=== PATIENT | female | born 1950 ===

== ENCOUNTER 2017-10-10 07:09 | Emergency (ER) | payer OTHER ==
[2017-10-10 07:27] VITALS: RESP 20
[2017-10-10 08:11] LABS: BASO % 0.2 % (0.0-2.0); EOS # 0.1 K/uL (0.0-0.7); LYMPH # 2.1 K/uL (1.0-4.3); MEAN CELL VOLUME 88.9 fL (81.0-99.0); MEAN CORPUSCULAR HEMOGLOBIN 28.8 pg (27.0-31.0); MEAN CORPUSCULAR HGB CONC 32.4 g/dL (33.0-37.0); MEAN PLATELET VOLUME 8.8 fL (7.2-11.7); MONO # 1.3 K/uL (0.0-0.8); MONO % 9.8 % (0.0-10.0); NEUT # 9.7 K/uL (1.8-7.0); RBC 4.52 Mil/uL (3.80-5.20); RED CELL DISTRIBUTION WIDTH 14.4 % (11.5-14.5); WHITE BLOOD COUNT 13.3 K/uL (4.8-10.8)
--- NOTE | 2017-10-10 08:14 | C.PDOC ---
History Of Present Illness 66 y/o female,w/PMhx of HTN, presents to the ER complaining of chest pain, shortness of breath, and back pain which has been present for the past 1 week. Patient states that she was experiencing symptoms while she was in [place] a few days ago. The symptoms continued after she returned from [place] 3 days ago so she decided to visit the ER. Denies having fever and chills. Time Seen by Provider: 10/10/17 07:17 Chief Complaint (Nursing): Chest Pain History Per: Patient History/Exam Limitations: no limitations Onset/Duration Of Symptoms: Days Current Symptoms Are (Timing): Still Present Severity: Moderate Quality: Aching Recent travel outside of the [place]: No Past Medical History Reviewed: Historical Data, Nursing Documentation, Vital Signs Vital Signs: Last Vital Signs Temp 98.1 F 10/10/17 12:02 Pulse 70 10/10/17 12:02 Resp 20 10/10/17 12:02 BP 165/87 H 10/10/17 12:02 Pulse Ox 95 10/10/17 14:58 - Medical History PMH: HTN Other Surgeries: Hx of surgeries Family History: States: No Known Family Hx - Social History Hx Alcohol Use: No Hx Substance Use: No Review Of Systems Except As Marked, All Systems Reviewed And Found Negative. Constitutional: Negative for: Fever, Chills Cardiovascular: Positive for: Chest Pain Respiratory: Positive for: Shortness of Breath. Negative for: Cough Musculoskeletal: Positive for: Back Pain Physical Exam - Physical Exam Appears: Non-toxic, No Acute Distress Skin: Normal Color, Warm, Dry Head: Atraumatic, Normacephalic Eye(s): bilateral: Normal Inspection Nose: Normal Oral Mucosa: Moist Neck: Supple Chest: Symmetrical Cardiovascular: Rhythm Regular Respiratory: Normal Breath Sounds, No Rales, No Rhonchi, No Wheezing Gastrointestinal/Abdominal: Normal Exam, Soft, No Tenderness, No Guarding, No Rebound Back: Normal Inspection, No Vertebral Tenderness Neurological/Psych: Oriented x3, Normal Speech ED Course And Treatment - Laboratory Results Result Diagrams: 10/10/17 07:54 10/10/17 07:54 Lab Interpretation: No Acute Changes ECG: Interpreted By Tn ECG Rhythm: Sinus Rhythm, Nonspecific Changes ECG Interpretation: No Acute Changes Rate From EC O2 Sat by Pulse Oximetry: 95 (RA) Pulse Ox Interpretation: Normal - Other Rad CXR X-Ray: Viewed By Me, Read By Radiologist Interpretation: Date of service: 10/10/2017. HISTORY: SOB. COMPARISON: No prior. TECHNIQUE: Chest PA and lateral. FINDINGS: LUNGS: No acute infiltrates bilaterally. Linear atelectasis or fibrosis seen at left upper lobe laterally. PLEURA: No significant pleural effusion identified. No pneumothorax apparent. CARDIOVASCULAR: Mild cardiomegaly. No pulmonary vascular congestion evident. OSSEOUS STRUCTURES: No significant abnormalities. VISUALIZED UPPER ABDOMEN: Normal. OTHER FINDINGS: None. IMPRESSION: Mild cardiomegaly. No pulmonary vascular congestion. Linear atelectasis or fibrosis left upper lobe laterally. - CT Scan/US CT-Chest Other Rad Studies (CT/US): Read By Radiologist, Radiology Report Reviewed CT/US Interpretation: Date of service: 10/10/2017. PROCEDURE: CT Chest with contrast (Pulmonary Angiogram). HISTORY: SOB. COMPARISON: None available. TECHNIQUE: Axial computed tomography images were obtained of the chest in the pulmonary arterial phase of enhancement. Coronal and sagittal reformatted images were created and reviewed. Intravenous contrast dose: 100 mL Visipaque 320. Radiation dose: Total exam DLP = 438.14 mGy-cm. This CT exam was performed using one or more of the following dose reduction techniques: Automated exposure control, adjustment of the mA and/or kV according to patient size, and/or use of iterative reconstruction technique. FINDINGS: PULMONARY ARTERIES: Unremarkable. No pulmonary embolism. AORTA: No acute findings. No thoracic aortic aneurysmThe mild aneurysmal dilatation of the ascending thoracic aorta is noted, up to a diameter of 4.2 cm. The main pulmonary artery measures 3.1 cm in diameter, within normal limits. The aortic arch and descending thoracic aorta are normal in caliber. . LUNGS: Minimal linear scar / atelectasis in the lingula and in the right middle lobe. No infiltrate. No pulmonary mass. PLEURAL SPACES: Unremarkable. No effusion or pneumothorax. HEART: Minimal cardiomegaly. Trace pericardial effusion. LYMPH NODES: No lymphadenopathy. BONES, CHEST WALL: Unremarkable. No fracture or destructive lesion. OTHER FINDINGS: Unremarkable. IMPRESSION: No evidence of pulmonary embolism. No acute abnormality. Mild aneurysmal dilatation of the ascending thoracic aorta. Minor findings as above. Progress Note: On re-evaluation lungs clear abdomen soft, in no distress. Discharged in stable condition Reassessment Condition: Improved Medical Decision Making Medical Decision Making: Plan: --Labs --D-Dimer --CXR --UA Disposition Counseled Patient/Family Regarding: Studies Performed, Diagnosis, Need For Followup, Rx Given - Disposition Referrals: Abdirizak Miranda MD [Staff Provider] - Disposition: HOME/ ROUTINE Disposition Time: 12:00 Condition: IMPROVED Additional Instructions: Follow up with your PMD for further evaluation Return to ED if any increase symptoms Prescriptions: Ibuprofen [Motrin Tab] 400 mg PO TID PRN #12 tab PRN Reason: Pain Instructions: Chest Pain, Chest Pain That Is Not Caused by the Heart (DC) Forms: [facility] (Palestinian) Print Language: MONGOLIAN - POA Present On Arrival: None - Clinical Impression Clinical Impression: Chest pain - PA / CMM INSPECTOR / Resident Statement MD/DO has reviewed & agrees with the documentation as recorded. - Scribe Statement The provider has reviewed the documentation as recorded by the Bibi Vaughan Provider Attestation All medical record entries made by the Scribe were at my direction and personally dictated by me. I have reviewed the chart and agree that the record accurately reflects my personal performance of the history, physical exam, medical decision making, and the department course for this patient. I have also personally directed, reviewed, and agree with the discharge instructions and disposition.
[2017-10-10 08:42] LABS: CK-MB 1.43 ng/mL (0.0-3.38)
[2017-10-10 08:47] LABS: ALB/GLOB RATIO 1.1 (1.0-2.1); ALBUMIN 3.9 g/dL (3.5-5.0); ALT/SGPT 17 U/L (9-52); AST/SGOT 19 U/L (14-36); BLOOD UREA NITROGEN 11 mg/dL (7-17); CALCIUM 9.5 mg/dl (8.6-10.4); GFR AFRICAN-AMERICAN > 60; GFR NON-AFRICAN AMERICAN > 60
[2017-10-10] MEDS ORDERED: Sodium Chloride 0.9% 1,000 ML ONE (09:31)
[2017-10-10] MEDS: Sodium Chloride 0.9% 1,000 ML IV ONE (09:36)
[2017-10-10 09:40] LABS: INR 1.2; PROTHROMBIN TIME 13.3 SECONDS (9.7-12.2)
[2017-10-10] MEDS ORDERED: Iodixanol 320 MG/ML 100 ML BOTTLE IV ONE (09:44)
--- NOTE | 2017-10-10 09:52 | RAD ---
Date of service: 10/10/2017 HISTORY: SOB COMPARISON: No prior. TECHNIQUE: Chest PA and lateral FINDINGS: LUNGS: No acute infiltrates bilaterally. Linear atelectasis or fibrosis seen at left upper lobe laterally. PLEURA: No significant pleural effusion identified. No pneumothorax apparent. CARDIOVASCULAR: Mild cardiomegaly. No pulmonary vascular congestion evident. OSSEOUS STRUCTURES: No significant abnormalities. VISUALIZED UPPER ABDOMEN: Normal. OTHER FINDINGS: None. IMPRESSION: Mild cardiomegaly. No pulmonary vascular congestion. Linear atelectasis or fibrosis left upper lobe laterally.
--- NOTE | 2017-10-10 11:08 | CT ---
Date of service: 10/10/2017 PROCEDURE: CT Chest with contrast (Pulmonary Angiogram) HISTORY: SOB COMPARISON: None available. TECHNIQUE: Axial computed tomography images were obtained of the chest in the pulmonary arterial phase of enhancement. Coronal and sagittal reformatted images were created and reviewed. Intravenous contrast dose: 100 mL Visipaque 320 Radiation dose: Total exam DLP = 438.14 mGy-cm. This CT exam was performed using one or more of the following dose reduction techniques: Automated exposure control, adjustment of the mA and/or kV according to patient size, and/or use of iterative reconstruction technique. FINDINGS: PULMONARY ARTERIES: Unremarkable. No pulmonary embolism. AORTA: No acute findings. No thoracic aortic aneurysmThe mild aneurysmal dilatation of the ascending thoracic aorta is noted, up to a diameter of 4.2 cm. The main pulmonary artery measures 3.1 cm in diameter, within normal limits. The aortic arch and descending thoracic aorta are normal in caliber. . LUNGS: Minimal linear scar/ atelectasis in the lingula and in the right middle lobe. No infiltrate. No pulmonary mass. PLEURAL SPACES: Unremarkable. No effusion or pneumothorax. HEART: Minimal cardiomegaly. Trace pericardial effusion. LYMPH NODES: No lymphadenopathy. BONES, CHEST WALL: Unremarkable. No fracture or destructive lesion OTHER FINDINGS: Unremarkable. IMPRESSION: No evidence of pulmonary embolism. No acute abnormality. Mild aneurysmal dilatation of the ascending thoracic aorta. Minor findings as above.
[2017-10-10 12:03] VITALS: BP 165/87; PULSE 70; TEMP 98.1
[2017-10-10 14:57] VITALS: O2SAT 95
== END 2017-10-10 12:05 | disposition home or self-care (01) ==
LOC: C.ER 07:09
DX: R07.9 Chest pain, unspecified (principal)
CPT/HCPCS: 71046; 71275; 80053; 82553; 84484; 85025; 85378; 85610; 85730; 96361; 96374; 99283; J1885; J7030; Q9967

== ENCOUNTER 2017-10-12 11:00 | Inpatient (IN) | payer OTHER, MEDICARE ==
--- NOTE | 2017-10-12 11:45 | RAD ---
Date of service: 10/12/2017 PROCEDURE: CHEST RADIOGRAPH, 1 VIEW HISTORY: SOB COMPARISON: 10/10/2017. FINDINGS: LUNGS: The lungs are well inflated and clear. There is subsegmental atelectasis in the left mid lung. PLEURA: No pneumothorax or pleural fluid seen. CARDIOVASCULAR: There is moderate cardiomegaly. OSSEOUS STRUCTURES: No significant abnormalities. VISUALIZED UPPER ABDOMEN: Normal. OTHER FINDINGS: None. IMPRESSION: No active pulmonary disease.
[2017-10-12 11:48] LABS: BASO # 0.1 K/uL (0.0-0.2); BASO % 0.8 % (0.0-2.0); EOS # 0.2 K/uL (0.0-0.7); EOS % 1.4 % (0.0-4.0); HEMOGLOBIN 12.3 g/dL (11.0-16.0); LYMPH # 2.7 K/uL (1.0-4.3); LYMPH % 20.4 % (20.0-40.0); MEAN CELL VOLUME 88.8 fL (81.0-99.0); MEAN CORPUSCULAR HEMOGLOBIN 29.6 pg (27.0-31.0); MEAN CORPUSCULAR HGB CONC 33.3 g/dL (33.0-37.0); MEAN PLATELET VOLUME 8.8 fL (7.2-11.7); MONO # 0.7 K/uL (0.0-0.8); MONO % 5.6 % (0.0-10.0); NEUT # 9.5 K/uL (1.8-7.0); NEUT % 71.8 % (50.0-75.0); RBC 4.16 Mil/uL (3.80-5.20); RED CELL DISTRIBUTION WIDTH 14.7 % (11.5-14.5); WHITE BLOOD COUNT 13.3 K/uL (4.8-10.8)
[2017-10-12 11:57] LABS: ALBUMIN 3.6 g/dL (3.5-5.0); ALT/SGPT 23 U/L (9-52); AST/SGOT 22 U/L (14-36); BLOOD UREA NITROGEN 14 mg/dL (7-17); CALCIUM 9.2 mg/dl (8.6-10.4); GFR AFRICAN-AMERICAN > 60; GFR NON-AFRICAN AMERICAN > 60
[2017-10-12 12:03] LABS: INR 1.3; PROTHROMBIN TIME 14.3 SECONDS (9.7-12.2)
[2017-10-12 12:04] LABS: B-TYPE NATRIURETIC PEPTIDE 952 pg/mL (0-900)
[2017-10-12] MEDS ORDERED: Metoprolol 1 mg/ml Inj IVP ONE ×2 (12:08→12:19)
--- NOTE | 2017-10-12 12:26 | C.PDOC ---
History Of Present Illness 66 y/o female is sent to ED from Dr. Miranda's office for evaluation of palpitations, and shortness of breath for the past 3 days. Pt was found to be in rapid Afib with fast heart rate at Dr. Miranda's office. Otherwise, she denies fever, chills, cough, or chest pain. Time Seen by Provider: 10/12/17 11:07 Chief Complaint (Nursing): Palpitations History Per: Patient History/Exam Limitations: no limitations Past Medical History Reviewed: Historical Data, Nursing Documentation, Vital Signs Vital Signs: Last Vital Signs Temp 97.6 F 10/12/17 11:06 Pulse 144 H 10/12/17 12:07 Resp 24 10/12/17 11:41 BP 109/78 10/12/17 12:17 Pulse Ox 100 10/12/17 12:26 - Medical History PMH: HTN Family History: States: Unknown Family Hx - Social History Hx Alcohol Use: No Hx Substance Use: No - Immunization History Hx Tetanus Toxoid Vaccination: No Hx Influenza Vaccination: No Hx Pneumococcal Vaccination: No Review Of Systems Except As Marked, All Systems Reviewed And Found Negative. Constitutional: Negative for: Fever, Chills Cardiovascular: Positive for: Palpitations. Negative for: Chest Pain, Light Headedness Respiratory: Positive for: Shortness of Breath. Negative for: Cough Gastrointestinal: Negative for: Nausea, Vomiting Physical Exam - Physical Exam Appears: Non-toxic, No Acute Distress Skin: Normal Color, Warm, Dry Head: Atraumatic, Normacephalic Eye(s): bilateral: Normal Inspection Oral Mucosa: Moist Cardiovascular: Rhythm Irregular (irregular rate and rhythm) Respiratory: Normal Breath Sounds, No Rales, No Rhonchi, No Wheezing Gastrointestinal/Abdominal: Soft, No Tenderness Extremity: Normal ROM, No Pedal Edema, No Deformity Neurological/Psych: Oriented x3, Normal Speech ED Course And Treatment - Laboratory Results Result Diagrams: 10/12/17 11:34 10/12/17 11:34 ECG: Interpreted By Me, Viewed By Me ECG Rhythm: Atrial Fibrillation Interpretation Of ECG: Non-specific ST wave changes. Normal intervals, normal axis. Rate From EC O2 Sat by Pulse Oximetry: 100 Pulse Ox Interpretation: Normal Medical Decision Making Medical Decision Making: Blood work, CXR, EKG ordered and reviewed. Pt was given Cardizem and Lopressor. Spoke with hospitalist, Dr. Schmidt, who agrees upon telemetry admission. Disposition Discussed With .: Willow Schmidt Doctor Will See Patient In The: Hospital Counseled Patient/Family Regarding: Studies Performed, Diagnosis - Disposition Disposition Time: 12:26 Condition: FAIR Forms: [facility] (Syrian) - Clinical Impression Clinical Impression: Atrial fibrillation - Scribe Statement The provider has reviewed the documentation as recorded by the Scribe KP All medical record entries made by the Scribe were at my direction and personally dictated by me. I have reviewed the chart and agree that the record accurately reflects my personal performance of the history, physical exam, medical decision making, and the department course for this patient. I have also personally directed, reviewed, and agree with the discharge instructions and disposition.
--- NOTE | 2017-10-12 13:12 | CP.PCM.HP ---
<Seth Guevara - Last Filed: 10/12/17 19:44> History of Present Illness - History of Present Illness History of Present Illness: Patient was seen and examined at approximately 13:15 in ER Bed 11. Patient is an (Unknown- Full code status) at this time. Patient's emergency contact is her Liam Sommer. He can be reached at [phone]. CC: "I have trouble breathing and my heart is racing" HPI: 66 year old female with past medical history significant for HTN presents with complaints of shortness of breath and palpitations over the course of the past few days. Patient states that she initially presented to the ER here two days earlier for complaints of shortness of breath and chest discomfort. She states that she initially experienced symptoms while away in [place]. She states that she wanted to wait until she was back home to follow up with a doctor. Patient states that they took labs and performed imaging and told her that every thing was okay. She was asked to follow up with her primary medical doctor Dr. Miranda. Patient states that she went to see her primary later on that Sunday whereupon she was further examined. Patient states that she had blood work performed and an EKG performed. She states that there was a problem with the EKG and thus she was told that she would have to go to the emergency room. Patient states that her symptoms resolved that day. She states that she began experiencing symptoms again this morning. She states that she took one baby aspirin earlier today. She admits to palpitations and shortness of breath. Patient states that she feels hort of breath after walking three blocks or climbing up the stairs. She denies chest pain at the moment, nausea, vomiting, diarrhea, dysuria, cough, sick contacts urinary frequency or urgency at this time. PMHX- as stated above PSHx- denies Fam Hx- Mother had heart disease and eye problems Medications- ASA 81 mg PO daily Social- admits to smoking approximately 1 pack over the course of 4 days- has been smoking for approx 30 years (Quit smoking today). Denies alcohol or illicit drug use Allergies- Denies PMD: Dr. Miranda In the ED , EKG performed Atrial fibrillation with RVR. Patient was administered IV diltiazem and Lopressor for which patient responded. Present on Admission - Present on Admission Any Indicators Present on Admission: No Review of Systems - Review of Systems Systems not reviewed;Unavailable: Language Barrier - Constitutional Constitutional: absent: Weight Loss, Weakness - EENT Ears: absent: Ear Discharge, Ear Pain Nose/Mouth/Throat: absent: Nasal Congestion - Cardiovascular Cardiovascular: Dyspnea on Exertion, Palpitations. absent: Chest Pain - Respiratory Respiratory: Dyspnea, Wheezing. absent: Cough - Gastrointestinal Gastrointestinal: absent: Diarrhea, Nausea, Vomiting - Genitourinary Genitourinary: absent: Difficulty Urinating, Dysuria - Integumentary Integumentary: absent: Dry Skin, Skin Pain - Neurological Neurological: absent: Headaches, Weakness - Psychiatric Psychiatric: absent: Anxiety, Irritability - Endocrine Endocrine: Palpitations. absent: Fatigue, Polyuria Past Patient History - Past Social History Smoking Status: Light Smoker < 10 Cigarettes Daily Alcohol: None Drugs: Denies Home Situation {Lives}: With Family - CARDIAC Hx Hypertension: Yes - PSYCHIATRIC Hx Substance Use: No - SURGICAL HISTORY Hx Surgeries: No - ANESTHESIA Hx Anesthesia: No Meds Allergies/Adverse Reactions: Allergies Allergy/AdvReac Type Severity Reaction Status Date / Time No Known Allergies Allergy Verified 10/12/17 11:22 Physical Exam - Constitutional Appears: Non-toxic, No Acute Distress - Head Exam Head Exam: ATRAUMATIC, NORMAL INSPECTION, NORMOCEPHALIC - Eye Exam Eye Exam: EOMI, Normal appearance Pupil Exam: NORMAL ACCOMODATION - ENT Exam ENT Exam: Mucous Membranes Moist - Neck Exam Neck exam: Positive for: Full Rom - Respiratory Exam Respiratory Exam: Wheezes - Expanded Respiratory Exam Expanded Respiratory: wheezes: Right (all lung sampson) - Cardiovascular Exam Cardiovascular Exam: +S1, +S2. absent: Tachycardia, JVD Additional comments: no carotid bruit appreciated - GI/Abdominal Exam GI & Abdominal Exam: Soft. absent: Firm, Guarding, Tenderness - Extremities Exam Extremities exam: Positive for: normal capillary refill, pedal pulses present. Negative for: calf tenderness, pedal edema - Back Exam Back exam: FULL ROM. absent: muscle spasm - Neurological Exam Neurological exam: Alert, Oriented x3 - Psychiatric Exam Psychiatric exam: Normal Affect, Normal Mood - Skin Skin Exam: Dry, Normal Color, Warm Results - Vital Signs Recent Vital Signs: Last Vital Signs Temp 97.6 F 10/12/17 11:06 Pulse 89 10/12/17 12:37 Resp 22 10/12/17 12:37 BP 106/69 10/12/17 12:37 Pulse Ox 100 10/12/17 12:42 - Labs Result Diagrams: 10/12/17 11:34 10/12/17 11:34 Labs: Laboratory Results - last 24 hr 10/12/17 10/12/17 10/12/17 11:34 11:34 11:34 WBC 13.3 H RBC 4.16 Hgb 12.3 Hct 36.9 MCV 88.8 MCH 29.6 MCHC 33.3 RDW 14.7 H Plt Count 324 MPV 8.8 Neut % (Auto) 71.8 Lymph % (Auto) 20.4 Brewster % (Auto) 5.6 Eos % (Auto) 1.4 Baso % (Auto) 0.8 Neut # (Auto) 9.5 H Lymph # (Auto) 2.7 Brewster # (Auto) 0.7 Eos # (Auto) 0.2 Baso # (Auto) 0.1 PT 14.3 H INR 1.3 APTT 31 D Sodium 140 Potassium 3.7 Chloride 103 Carbon Dioxide 24 Anion Gap 17 BUN 14 Creatinine 0.8 Est GFR ( Amer) > 60 Est GFR (Non-Af Amer) > 60 Random Glucose 237 H Calcium 9.2 Total Bilirubin 0.6 AST 22 ALT 23 Alkaline Phosphatase 96 Troponin I 0.0150 NT-Pro-B Natriuret Pep 952 H Total Protein 7.1 Albumin 3.6 Globulin 3.5 Albumin/Globulin Ratio 1.0 TSH 3rd Generation 1.18 Assessment & Plan (1) Atrial fibrillation with RVR Assessment and Plan: Patient received IV Lopressor and Cardizem in the ER Heart rate stabilized Patient on Cardizem 30 mg QID PO EKG confirms atrial fibrillation Initial troponin negative. F/U ELKIN x2 and repeat EKGs Chads Vasc 2 Score of 3 for Age, Female and HTN history. (Questionable CHF). will anticoagulate with therapeutic Lovenox 90 mg SC BID continuous monitoring on telemetry Consult to Dr. Talley (Cardiology)- F/U recommendations Status: Acute (2) Dyspnea Assessment and Plan: Oxygen PRN Wheezing- No known history of asthma. Duonebs Q 4 KEVEN today Follow up. CXR- No signs of active disease- cardiomegaly noted on exam Chest CT performed on 8/1- mildly dilated ascending thoracic aorta of 4.2 cm, arch of aorta and descending aorta within normal dimension parameters. minimal scar atelectasis noted in the lingula and right middle lobe. No infiltrate or pulmonary mass noted. Pro BNP elevated. Suspected CHF. Follow up official Echo reading Height of bed elevated. Monitor ins and outs F/u cardio recommendations Status: Acute (3) Hypertension Assessment and Plan: Controlled without home medications Normotensive at this time. No otherwise known cardiac/vascular history per patient. F/U additional labs including: Hgb a1c, Lipid panel, TSH at this time. Continue to monitor Status: Chronic (4) Prophylactic measure Assessment and Plan: On therapeutic Lovenox 90 mg SC BID GI prophylaxis not currently indicated Status: Acute <Willow Schmidt V - Last Filed: 10/16/17 21:33> Results - Vital Signs Recent Vital Signs: Last Vital Signs Temp 98.7 F 10/16/17 17:53 Pulse 111 H 10/16/17 15:47 Resp 22 10/16/17 15:47 BP 113/79 10/16/17 15:47 Pulse Ox 95 10/16/17 15:47 - Labs Result Diagrams: 10/16/17 08:08 10/16/17 08:08 Labs: Laboratory Results - last 24 hr 10/15/17 10/15/17 10/16/17 16:12 20:25 06:34 WBC RBC Hgb Hct MCV MCH MCHC RDW Plt Count MPV Neut % (Auto) Lymph % (Auto) Brewster % (Auto) Eos % (Auto) Baso % (Auto) Neut # (Auto) Lymph # (Auto) Brewster # (Auto) Eos # (Auto) Baso # (Auto) Sodium Potassium Chloride Carbon Dioxide Anion Gap BUN Creatinine Est GFR ( Amer) Est GFR (Non-Af Amer) POC Glucose (mg/dL) 167 H 126 H 130 H Random Glucose Calcium Total Bilirubin AST ALT Alkaline Phosphatase Total Protein Albumin Globulin Albumin/Globulin Ratio 10/16/17 10/16/17 10/16/17 08:08 08:08 11:04 WBC 9.8 RBC 4.10 Hgb 12.0 Hct 35.9 MCV 87.6 MCH 29.3 MCHC 33.4 RDW 14.3 Plt Count 376 MPV 7.6 Neut % (Auto) 71.5 Lymph % (Auto) 20.7 Brewster % (Auto) 6.5 Eos % (Auto) 0.9 Baso % (Auto) 0.4 Neut # (Auto) 7.0 Lymph # (Auto) 2.0 Brewster # (Auto) 0.6 Eos # (Auto) 0.1 Baso # (Auto) 0.0 Sodium 137 Potassium 3.6 Chloride 98 Carbon Dioxide 26 Anion Gap 16 BUN 16 Creatinine 0.8 Est GFR ( Amer) > 60 Est GFR (Non-Af Amer) > 60 POC Glucose (mg/dL) 146 H Random Glucose 152 H Calcium 9.0 Total Bilirubin 0.6 AST 22 ALT 25 Alkaline Phosphatase 105 Total Protein 7.1 Albumin 3.6 Globulin 3.5 Albumin/Globulin Ratio 1.0 10/16/17 17:23 WBC RBC Hgb Hct MCV MCH MCHC RDW Plt Count MPV Neut % (Auto) Lymph % (Auto) Brewster % (Auto) Eos % (Auto) Baso % (Auto) Neut # (Auto) Lymph # (Auto) Brewster # (Auto) Eos # (Auto) Baso # (Auto) Sodium Potassium Chloride Carbon Dioxide Anion Gap BUN Creatinine Est GFR ( Amer) Est GFR (Non-Af Amer) POC Glucose (mg/dL) 128 H Random Glucose Calcium Total Bilirubin AST ALT Alkaline Phosphatase Total Protein Albumin Globulin Albumin/Globulin Ratio Assessment & Plan (1) Atrial fibrillation with RVR Status: Acute (2) Non-STEMI (non-ST elevated myocardial infarction) Status: Acute (3) Thoracic aortic aneurysm without rupture Status: Chronic (4) Systolic heart failure Status: Acute (5) Hypertension Status: Chronic (6) Elevated d-dimer Status: Acute (7) Leg pain, bilateral Status: Acute (8) Shortness of breath Status: Acute (9) Prophylactic measure Status: Acute Attending/Attestation - Attestation I have personally seen and examined this patient.: Yes I have fully participated in the care of the patient.: Yes I have reviewed all pertinent clinical information: Yes Notes (Text): This is late computer entry for 10/12/17. Patient seen, examined and case discussed with day-time resident. Case discussed with day-time resident. Admitting discussed with day-time resident. Will start therapuetic anticoagulation. Patient start on Cardizem as rate control agent. Cardiology consult. Echocardiogram Assessment and Plan (1) Atrial fibrillation with RVR Assessment & Plan: * Admit to telemetry * Cardiology (Dr. Talley) on consult-->help appreciated * Will see the patient * New onset * CHADSVASC: 3 (age, sex, htn) * HASBLED: 1 (Age) * CT angio r/o PE (10/10/17): no evidence of pulmonary embolism. No acute abnormality. Mild aneurysmal dilatation of the ascending thoracic aorta. * Lovenox 1mg/sub [id number] (Lovenox 90mg subq Q12H) * Check echo * Cardizem 30mg PO QID * Check cardiac enzymes [id number] Status: Acute Status: Acute (2) Thoracic aortic aneurysm without rupture Assessment & Plan: * CT angio r/o PE (10/10/17): no evidence of pulmonary embolism. No acute abnormality. Mild aneurysmal dilatation of the ascending thoracic aorta. * Echocardiogram f/u Status: Chronic (3) Hypertension Assessment & Plan: * Monitor vital signs * Cardizem 30mg PO QID * Heart health, 2gm diet Status: Chronic (4) Elevated d-dimer Assessment & Plan: * Possible due to new onset atrial fibrillation RVR * CT angio r/o PE (10/10/17): no evidence of pulmonary embolism. No acute abnormality. Mild aneurysmal dilatation of the ascending thoracic aorta. Minor findings as above. * On therapuetic Lovenox for atrial fibrillation Status: Acute (5) Shortness of breath Assessment & Plan: * Patient has not formerly seen a imaging services director * she reports she feels short of breathe, reports she thinks she has had asthma , has not had PFTs as outpatient * Patient has had recent travel from [place], 3 hour plane ride * CT angio r/o PE (10/10/17): no evidence of pulmonary embolism. No acute abnormality. Mild aneurysmal dilatation of the ascending thoracic aorta. * elevated probnp concern for possible CHF * Consult Dr. Woodson for pulmonary Status: Acute (6) Prophylactic measure Assessment & Plan: * Lovenox 1mg/subq 12hour Status: Acute
[2017-10-12] MEDS: Albuterol-Ipratrop 3 mg / 0.5 (3 ml) UD INH SCH ×3 (16:25→23:32)
--- NOTE | 2017-10-12 19:46 | CARD ---
APPROVED REPORT Date of service: 10/12/2017 EXAM: Two-dimensional and M-mode echocardiogram with Doppler and color Doppler. Other Information Quality : TDSRhythm : INDICATION Dyspnea Atrial Fibrillation Palpitations 2D DIMENSIONS IVSd1.3 (0.7-1.1cm)LVDd4.8 (3.9-5.9cm) PWd1.0 (0.7-1.1cm)LVDs3.7 (2.5-4.0cm) FS (%) 22.6 %LVEF (%)35.0 (>50%) M-Mode DIMENSIONS Left Atrium (MM)3.64 (2.5-4.0cm)IVSd1.21 (0.7-1.1cm) Aortic Root3.37 (2.2-3.7cm)LVDd4.42 (4.0-5.6cm) Aortic Cusp Exc.1.62 (1.5-2.0cm)PWd1.14 (0.7-1.1cm) FS (%) 14 %LVDs3.78 (2.0-3.8cm) LVEF (%)31 (>50%) Aortic Valve AI P 1/2 Gths684sh Mitral Valve MV E Rwwgjuai06.2cm/sMV A Icwsnjhm734.5cm/sE/A ratio0.4 TDI E/Lateral E'0.0E/Medial E'0.0 LEFT VENTRICLE The left ventricle is normal size. There is mild concentric left ventricular hypertrophy. The left ventricular function is moderate to markedly reduced, with diffuse hypokinesis. The left ventricular ejection fraction is visually about 30%. No regional wall motion abnormalities noted. Indeterminate. No left ventricle thrombus noted on this study. There is no ventricular septal defect visualized. There is no left ventricular aneurysm. There is no mass noted in the left ventricle. RIGHT VENTRICLE The right ventricle is normal size. There is normal right ventricular wall thickness. The right ventricular systolic function is normal. ATRIA The left atrium size is normal. The right atrium size is normal. The interatrial septum is intact with no evidence for an atrial septal defect. AORTIC VALVE The aortic valve is normal in structure and function. Mild aortic regurgitation is present. There is no aortic valvular stenosis. There is no aortic valvular vegetation. MITRAL VALVE The mitral valve is normal in structure and function. There is no evidence of mitral valve prolapse. There is no mitral valve stenosis. There is mild mitral valve regurgitation noted. TRICUSPID VALVE The tricuspid valve is normal in structure and function. There is no tricuspid valve regurgitation noted. There is no tricuspid valve prolapse or vegetation. There is no tricuspid valve stenosis. PULMONIC VALVE The pulmonary valve is normal in structure and function. There is no pulmonic valvular regurgitation. There is no pulmonic valvular stenosis. GREAT VESSELS The aortic root is normal in size. The ascending aorta is moderately dilated at 4.4 cm. The pulmonary artery is normal. The IVC is normal in size and collapses >50% with inspiration. PERICARDIAL EFFUSION The pericardium appears normal. There is no pleural effusion. <Conclusion> The ascending aorta is moderately dilated at 4.4 cm. There is mild concentric left ventricular hypertrophy. The left ventricular function is moderate to markedly reduced, with diffuse hypokinesis. The left ventricular ejection fraction is visually about 30%. Mild aortic regurgitation is present.
[2017-10-12 20:15] LABS: CK-MB 4.13 ng/mL (0.0-3.38)
[2017-10-12 20:17] LABS: TROPONIN I 0.802 ng/mL (0.00-0.120)
[2017-10-12] MEDS: Enoxaparin 100 mg Syringe SC SCH (22:35)
[2017-10-13 01:03] LABS: TROPONIN I 0.471 ng/mL (0.00-0.120)
[2017-10-13 01:04] LABS: CK-MB 2.75 ng/mL (0.0-3.38)
[2017-10-13] MEDS: Albuterol-Ipratrop 3 mg / 0.5 (3 ml) UD INH SCH ×5 (03:17→19:50)
[2017-10-13 08:13] LABS: BASO # 0.1 K/uL (0.0-0.2); EOS # 0.1 K/uL (0.0-0.7); EOS % 1.2 % (0.0-4.0); HEMOGLOBIN 11.7 g/dL (11.0-16.0); LYMPH # 2.2 K/uL (1.0-4.3); LYMPH % 18.7 % (20.0-40.0); MEAN CELL VOLUME 87.4 fL (81.0-99.0); MEAN CORPUSCULAR HEMOGLOBIN 29.1 pg (27.0-31.0); MEAN CORPUSCULAR HGB CONC 33.3 g/dL (33.0-37.0); MEAN PLATELET VOLUME 8.5 fL (7.2-11.7); MONO # 1.1 K/uL (0.0-0.8); MONO % 9.2 % (0.0-10.0); NEUT # 8.2 K/uL (1.8-7.0); NEUT % 69.9 % (50.0-75.0); NRBC % 0.1 % (0.0-2.0); RBC 4.04 Mil/uL (3.80-5.20); RED CELL DISTRIBUTION WIDTH 14.5 % (11.5-14.5); WHITE BLOOD COUNT 11.7 K/uL (4.8-10.8)
[2017-10-13 08:32] LABS: ALB/GLOB RATIO 1.1 (1.0-2.1); ALBUMIN 3.7 g/dL (3.5-5.0); ALT/SGPT 20 U/L (9-52); AST/SGOT 16 U/L (14-36); BLOOD UREA NITROGEN 11 mg/dL (7-17); CALCIUM 9.2 mg/dl (8.6-10.4); GFR AFRICAN-AMERICAN > 60; GFR NON-AFRICAN AMERICAN > 60; HDL CHOLESTEROL 26 mg/dL (30-70)
[2017-10-13 08:38] LABS: LDL CHOLESTEROL 83 mg/dL (0-129)
[2017-10-13] MEDS ORDERED: Potassium Chloride 20 mEq ER Tab PO ONE (09:24)
--- NOTE | 2017-10-13 09:49 | CP.PCM.PN ---
Subjective - Date & Time of Evaluation Date of Evaluation: 10/13/17 Time of Evaluation: 09:45 - Subjective Subjective: Medical Attending Note: Patient denies headache, denies chest pain, denies palpitations, denies cough, denies abdominal pain, denies cough, reports back pain, reports having bowel movement. Patient reports she was on airplane ride on sunday took 3 hours coming back from [place]. Objective - Vital Signs/Intake and Output Vital Signs (last 24 hours): Temp Pulse Resp BP Pulse Ox 98.2 F 100 H 18 165/97 H 100 10/13/17 08:45 10/13/17 08:45 10/13/17 08:45 10/13/17 08:45 10/13/17 08:45 Intake and Output: 10/13/17 10/13/17 06:59 18:59 Intake Total 400 Balance 400 - Medications Medications: Current Medications Acetaminophen (Tylenol 325mg Tab) 650 mg PO Q6 PRN PRN Reason: Pain, moderate (4-7) Last Admin: 10/13/17 01:17 Dose: 650 mg Albuterol/Ipratropium (Duoneb 3 Mg/0.5 Mg (3 Ml) Ud) 3 ml INH RQ4 [facility] Last Admin: 10/13/17 08:06 Dose: 3 ml Aspirin (Ecotrin) 81 mg PO DAILY [facility] Diltiazem HCl (Cardizem) 30 mg PO QID [facility] Last Admin: 10/12/17 22:35 Dose: 30 mg Enoxaparin Sodium (Lovenox) 90 mg SC Q12 [facility] Last Admin: 10/12/17 22:35 Dose: 90 mg Furosemide (Lasix) 40 mg IVP STAT STA Stop: 10/13/17 09:44 - Labs Labs: 10/13/17 08:06 10/13/17 08:06 PT 14.3 SECONDS (9.7-12.2) H 10/12/17 11:34 INR 1.3 10/12/17 11:34 APTT 31 SECONDS (21-34) D 10/12/17 11:34 - Constitutional Appears: Non-toxic, No Acute Distress - Head Exam Head Exam: NORMAL INSPECTION - Eye Exam Eye Exam: EOMI - ENT Exam ENT Exam: Mucous Membranes Moist - Respiratory Exam Respiratory Exam: Clear to Ausculation Bilateral, NORMAL BREATHING PATTERN. absent: Rales, Rhonchi, Wheezes - Cardiovascular Exam Cardiovascular Exam: Irregular Rhythm, +S1, +S2 - GI/Abdominal Exam GI & Abdominal Exam: Soft, Normal Bowel Sounds. absent: Distended, Firm, Guarding, Rigid, Tenderness, Rebound - Extremities Exam Extremities Exam: Tenderness. absent: Pedal Edema - Back Exam Back Exam: absent: CVA tenderness (L), CVA tenderness (R) - Neurological Exam Neurological Exam: Alert, Awake, Oriented x3 - Psychiatric Exam Psychiatric exam: Normal Affect, Normal Mood - Skin Skin Exam: Dry, Intact, Normal Color, Warm Assessment and Plan (1) Atrial fibrillation with RVR Assessment & Plan: Cardiology (Dr. Talley) on consult-->help appreciated * New onset * CHADSVASC: 4 (age, sex, chf, htn) * HASBLED: 1 (Age) * Echocardiogram (10/12/17): Ascending Aorta is moderately dilated at 4.4 cm, mild concentric left ventricular hypertrophy. left ventricular function is moderately to markedly reduced, with diffuse hypokinesis. Left ventricular ejection fraction is visually about 30% Mild aortic regurgitation is present. * CT angio r/o PE (10/10/17): no evidence of pulmonary embolism. No acute abnormality. Mild aneurysmal dilatation of the ascending thoracic aorta. * Lovenox 1mg/sub [id number] (Lovenox 90mg subq Q12H) * Cardizem 30mg PO QID Status: Acute (2) Non-STEMI (non-ST elevated myocardial infarction) Assessment & Plan: * Cardiology (Dr. Talley) on board-->help appreciated * Echocardiogram (10/12/17): Ascending Aorta is moderately dilated at 4.4 cm, mild concentric left ventricular hypertrophy. left ventricular function is moderately to markedly reduced, with diffuse hypokinesis. Left ventricular ejection fraction is visually about 30% Mild aortic regurgitation is present. * CT angio r/o PE (10/10/17): no evidence of pulmonary embolism. No acute abnormality. Mild aneurysmal dilatation of the ascending thoracic aorta. * Patient has positive troponin overnight, which is downtrending * Order for repeat ELKIN this morning * Therapeutic Lovenox 1mg/kg sub12 for atrial fibrillation * Aspirin 81mg PO daily * Start Lisinopril 5mg PO daily * C/w Cardizem 30mg PO QID * Check lipid panel, a1c, TSH/Free T4 * Patient has not had a cardiac cath in the past Status: Acute (3) Thoracic aortic aneurysm without rupture Assessment & Plan: * CT angio r/o PE (10/10/17): no evidence of pulmonary embolism. No acute abnormality. Mild aneurysmal dilatation of the ascending thoracic aorta. * Echocardiogram (10/12/17): Ascending Aorta is moderately dilated at 4.4 cm, mild concentric left ventricular hypertrophy. left ventricular function is moderately to markedly reduced, with diffuse hypokinesis. Left ventricular ejection fraction is visually about 30% Mild aortic regurgitation is present. Status: Chronic (4) Systolic heart failure Assessment & Plan: * Cardiology (Dr. Talley) on case-->help appreciated * New onset * Acute exacerbation * Systolic Dysfunction * elevated proBNP * Echocardiogram (10/12/17): Ascending Aorta is moderately dilated at 4.4 cm, mild concentric left ventricular hypertrophy. left ventricular function is moderately to markedly reduced, with diffuse hypokinesis. Left ventricular ejection fraction is visually about 30%. Mild aortic regurgitation is present * CT angio r/o PE (10/10/17): no evidence of pulmonary embolism. No acute abnormality. Mild aneurysmal dilatation of the ascending thoracic aorta. * Aspirin 81mg PO daily * Cardizem 30mg PO QID * We will need to discuss with cardiology if to switch to beta-sunil given LV dysfunction * Start Lisinopril 5mg PO daily * Fluid restriction (1200ML) * Record intake and outputs Status: Acute (5) Hypertension Assessment & Plan: * Monitor vital signs * Cardizem 30mg PO QID * Start Lisinopril 5mg PO daily * Heart Options Away, 2gm diet Status: Chronic (6) Elevated d-dimer Assessment & Plan: * Order for venous doppler rule out dvt given recent travel from [place] * Possible due to new onset atrial fibrillation RVR * CT angio r/o PE (10/10/17): no evidence of pulmonary embolism. No acute abnormality. Mild aneurysmal dilatation of the ascending thoracic aorta. Minor findings as above. * On therapuetic Lovenox for atrial fibrillation * Echocardiogram (10/12/17): Ascending Aorta is moderately dilated at 4.4 cm, mild concentric left ventricular hypertrophy. left ventricular function is moderately to markedly reduced, with diffuse hypokinesis. Left ventricular ejection fraction is visually about 30% Status: Acute (7) Leg pain, bilateral Assessment & Plan: f/u venous doppler: r/o dvt elevated d-dimer Wells's criteria: 1: moderate risk risk factor: recent plane ride (3 hours), obesity Status: Acute (8) Shortness of breath Assessment & Plan: * Patient has not formerly seen a knot tier * she reports she feels short of breathe, reports she thinks she has had asthma , has not had PFTs as outpatient * Patient has had recent travel from [place], 3 hour plane ride * CT angio r/o PE (10/10/17): no evidence of pulmonary embolism. No acute abnormality. Mild aneurysmal dilatation of the ascending thoracic aorta. * Echocardiogram (10/12/17): Ascending Aorta is moderately dilated at 4.4 cm, mild concentric left ventricular hypertrophy. left ventricular function is moderately to markedly reduced, with diffuse hypokinesis. Left ventricular ejection fraction is visually about 30% Status: Acute (9) Prophylactic measure Assessment & Plan: * Lovenox 1mg/subq 12hour * Fluid restriction * Intake and output * Pepcid 20mg PO BID for GI ppx Status: Acute
[2017-10-13] MEDS: Enoxaparin 100 mg Syringe SC SCH ×2 (10:17→21:21)
--- NOTE | 2017-10-13 14:34 | CP.PCM.CON ---
History of Present Illness - History of Present Illness History of Present Illness: reason for consultation: shortness of breath and long history of smoking 66-year-old female with long history of smoking, hypertension presented to emergency room with shortness of breath, palpitation and chest pain. Patient was seen in the emergency room 2 days ago with similar complaints. patient went to see PMD and was asked to go to the emergency room for abnormal EKG. Patient also complaining of slight cough. Patient was initially started on Cardizem drip for atrial fibrillation with rapid rate and has an elevated troponin with ejection fraction of 30% PMHX- as stated above PSHx- denies Fam Hx- Mother had heart disease and eye problems Medications- ASA 81 mg PO daily Social- admits to smoking approximately 1 pack over the course of 4 days- has been smoking for approx 30 years (Quit smoking today). Denies alcohol or illicit drug use Allergies- Denies Review of Systems - Review of Systems All systems: reviewed and no additional remarkable complaints except (shortness of breath and chest pain) Past Patient History - Past Medical History & Family History Past Medical History?: Yes - Past Social History Smoking Status: Light Smoker < 10 Cigarettes Daily Alcohol: None Drugs: Denies Home Situation {Lives}: With Family - CARDIAC Hx Hypertension: Yes - MUSCULOSKELETAL/RHEUMATOLOGICAL Hx Falls: Yes (more than 30 years ago) - PSYCHIATRIC Hx Substance Use: No - SURGICAL HISTORY Hx Surgeries: No - ANESTHESIA Hx Anesthesia: No Meds Allergies/Adverse Reactions: Allergies Allergy/AdvReac Type Severity Reaction Status Date / Time No Known Allergies Allergy Verified 10/12/17 11:22 - Medications Medications: Current Medications Acetaminophen (Tylenol 325mg Tab) 650 mg PO Q6 PRN PRN Reason: Pain, moderate (4-7) Last Admin: 10/13/17 10:17 Dose: 650 mg Albuterol/Ipratropium (Duoneb 3 Mg/0.5 Mg (3 Ml) Ud) 3 ml INH RQ4 [facility] Last Admin: 10/13/17 13:32 Dose: 3 ml Aspirin (Ecotrin) 81 mg PO DAILY [facility] Last Admin: 10/13/17 10:18 Dose: 81 mg Enoxaparin Sodium (Lovenox) 90 mg SC Q12 [facility] Last Admin: 10/13/17 10:17 Dose: 90 mg Lisinopril (Zestril) 5 mg PO DAILY [facility] Last Admin: 10/13/17 10:18 Dose: 5 mg Metoprolol Tartrate (Lopressor) 50 mg PO BID [facility] Last Admin: 10/13/17 11:15 Dose: 50 mg Physical Exam - Head Exam Head Exam: ATRAUMATIC, NORMOCEPHALIC - ENT Exam ENT Exam: Mucous Membranes Moist - Neck Exam Neck exam: Positive for: Normal Inspection - Respiratory Exam Respiratory Exam: Rhonchi, Wheezes - Cardiovascular Exam Cardiovascular Exam: Irregular Rhythm - GI/Abdominal Exam GI & Abdominal Exam: Normal Bowel Sounds, Soft - Extremities Exam Extremities exam: Positive for: pedal edema - Neurological Exam Neurological exam: Alert, Oriented x3 Results - Vital Signs Recent Vital Signs: Last Vital Signs Temp 98.2 F 10/13/17 08:45 Pulse 97 H 10/13/17 13:17 Resp 18 10/13/17 08:45 BP 137/79 10/13/17 13:17 Pulse Ox 100 10/13/17 08:45 - Labs Result Diagrams: 10/13/17 08:06 10/13/17 08:06 Labs: Laboratory Results - last 24 hr 10/12/17 10/12/17 10/13/17 13:48 19:31 00:15 WBC RBC Hgb Hct MCV MCH MCHC RDW Plt Count MPV Neut % (Auto) Lymph % (Auto) Rice % (Auto) Eos % (Auto) Baso % (Auto) Neut # (Auto) Lymph # (Auto) Rice # (Auto) Eos # (Auto) Baso # (Auto) Sodium Potassium Chloride Carbon Dioxide Anion Gap BUN Creatinine Est GFR ( Amer) Est GFR (Non-Af Amer) Random Glucose Calcium Phosphorus Magnesium Total Bilirubin AST ALT Alkaline Phosphatase Total Creatine Kinase 73 57 CK-MB (Mass) 4.13 H 2.75 Troponin I 0.8020 H* 0.4710 H* Total Protein Albumin Globulin Albumin/Globulin Ratio Triglycerides Cholesterol LDL Cholesterol Direct HDL Cholesterol Free T4 1.31 TSH 3rd Generation 10/13/17 10/13/17 08:06 08:06 WBC 11.7 H RBC 4.04 Hgb 11.7 Hct 35.3 MCV 87.4 MCH 29.1 MCHC 33.3 RDW 14.5 Plt Count 321 MPV 8.5 Neut % (Auto) 69.9 Lymph % (Auto) 18.7 L Rice % (Auto) 9.2 Eos % (Auto) 1.2 Baso % (Auto) 1.0 Neut # (Auto) 8.2 H Lymph # (Auto) 2.2 Rice # (Auto) 1.1 H Eos # (Auto) 0.1 Baso # (Auto) 0.1 Sodium 141 Potassium 3.5 L Chloride 103 Carbon Dioxide 29 Anion Gap 13 BUN 11 Creatinine 0.7 Est GFR ( Amer) > 60 Est GFR (Non-Af Amer) > 60 Random Glucose 147 H Calcium 9.2 Phosphorus 3.9 Magnesium 2.1 Total Bilirubin 0.5 AST 16 ALT 20 Alkaline Phosphatase 98 Total Creatine Kinase 55 CK-MB (Mass) 1.60 Troponin I 0.2580 H* Total Protein 7.0 Albumin 3.7 Globulin 3.3 Albumin/Globulin Ratio 1.1 Triglycerides 120 Cholesterol 145 LDL Cholesterol Direct 83 HDL Cholesterol 26 L Free T4 TSH 3rd Generation 1.06 Assessment & Plan (1) COPD exacerbation Status: Acute Comment: patient with long history of smoking. Presented with shortness of breath, wheezing and slight cough. Continue nebulizer treatment and add budesonide (2) Atrial fibrillation with RVR Status: Acute Comment: continue Lovenox. Cardizem/Lopressor. Possible cardiac catheter tomorrow (3) Non-STEMI (non-ST elevated myocardial infarction) Status: Acute (4) Thoracic aortic aneurysm without rupture Status: Chronic
[2017-10-13] MEDS: Budesonide 0.5 mg/2 ml Inhal Susp UD INH SCH (19:50)
--- NOTE | 2017-10-13 21:52 | CP.PCM.CON ---
History of Present Illness - History of Present Illness History of Present Illness: CC: "I have trouble breathing and my heart is racing" HPI: 66 year old female with past medical history significant for HTN presents with complaints of shortness of breath and palpitations over the course of the past few days. Patient states that she initially presented to the ER here two days earlier for complaints of shortness of breath and chest discomfort. She states that she initially experienced symptoms while away in [place]. She states that she wanted to wait until she was back home to follow up with a doctor. Patient states that they took labs and performed imaging and told her that every thing was okay. She was asked to follow up with her primary medical doctor Dr. Miranda. Patient states that she went to see her primary later on that Sunday whereupon she was further examined. Patient states that she had blood work performed and an EKG performed. She states that there was a problem with the EKG and thus she was told that she would have to go to the emergency room. Patient states that her symptoms resolved that day. She states that she began experiencing symptoms again this morning. She states that she took one baby aspirin earlier today. She admits to palpitations and shortness of breath. Patient states that she feels hort of breath after walking three blocks or climbing up the stairs. She denies chest pain at the moment, nausea, vomiting, diarrhea, dysuria, cough, sick contacts urinary frequency or urgency at this time. PMHX- as stated above PSHx- denies Fam Hx- Mother had heart disease and eye problems Medications- ASA 81 mg PO daily Social- admits to smoking approximately 1 pack over the course of 4 days- has been smoking for approx 30 years (Quit smoking today). Denies alcohol or illicit drug use Allergies- Denies PMD: Dr. Miranda In the ED , EKG performed Atrial fibrillation with RVR. Patient was administered IV diltiazem and Lopressor for which patient responded. Present on Admission - Present on Admission Any Indicators Present on Admission: No Review of Systems - Review of Systems Systems not reviewed;Unavailable: Language Barrier - Constitutional Constitutional: absent: Weight Loss, Weakness - EENT Ears: absent: Ear Discharge, Ear Pain Nose/Mouth/Throat: absent: Nasal Congestion - Cardiovascular Cardiovascular: Dyspnea on Exertion, Palpitations. absent: Chest Pain - Respiratory Respiratory: Dyspnea, Wheezing. absent: Cough - Gastrointestinal Gastrointestinal: absent: Diarrhea, Nausea, Vomiting - Genitourinary Genitourinary: absent: Difficulty Urinating, Dysuria - Integumentary Integumentary: absent: Dry Skin, Skin Pain - Neurological Neurological: absent: Headaches, Weakness - Psychiatric Psychiatric: absent: Anxiety, Irritability - Endocrine Endocrine: Palpitations. absent: Fatigue, Polyuria Physical Exam - Constitutional Appears: Non-toxic, No Acute Distress - Head Exam Head Exam: ATRAUMATIC, NORMAL INSPECTION, NORMOCEPHALIC - Eye Exam Eye Exam: EOMI, Normal appearance Pupil Exam: NORMAL ACCOMODATION - ENT Exam ENT Exam: Mucous Membranes Moist - Neck Exam Neck exam: Positive for: Full Rom - Respiratory Exam Respiratory Exam: Wheezes - Expanded Respiratory Exam Expanded Respiratory: wheezes: Right (all lung sampson) - Cardiovascular Exam Cardiovascular Exam: +S1, +S2. absent: Tachycardia, JVD Additional comments: no carotid bruit appreciated - GI/Abdominal Exam GI & Abdominal Exam: Soft. absent: Firm, Guarding, Tenderness - Extremities Exam Extremities exam: Positive for: normal capillary refill, pedal pulses present. Negative for: calf tenderness, pedal edema - Back Exam Back exam: FULL ROM. absent: muscle spasm - Neurological Exam Neurological exam: Alert, Oriented x3 - Psychiatric Exam Psychiatric exam: Normal Affect, Normal Mood - Skin Skin Exam: Dry, Normal Color, Warm Past Patient History - Past Medical History & Family History Past Medical History?: Yes - Past Social History Smoking Status: Light Smoker < 10 Cigarettes Daily Alcohol: None Drugs: Denies Home Situation {Lives}: With Family - CARDIAC Hx Hypertension: Yes - MUSCULOSKELETAL/RHEUMATOLOGICAL Hx Falls: Yes (more than 30 years ago) - PSYCHIATRIC Hx Substance Use: No - SURGICAL HISTORY Hx Surgeries: No - ANESTHESIA Hx Anesthesia: No Meds Allergies/Adverse Reactions: Allergies Allergy/AdvReac Type Severity Reaction Status Date / Time No Known Allergies Allergy Verified 10/12/17 11:22 - Medications Medications: Current Medications Acetaminophen (Tylenol 325mg Tab) 650 mg PO Q6 PRN PRN Reason: Pain, moderate (4-7) Last Admin: 10/13/17 10:17 Dose: 650 mg Albuterol/Ipratropium (Duoneb 3 Mg/0.5 Mg (3 Ml) Ud) 3 ml INH RQ4 [facility] Last Admin: 10/13/17 19:50 Dose: 3 ml Aspirin (Ecotrin) 81 mg PO DAILY [facility] Last Admin: 10/13/17 10:18 Dose: 81 mg Budesonide (Pulmicort Respules) 0.5 mg INH RQ12 [facility] Last Admin: 10/13/17 19:50 Dose: 0.5 mg Docusate Sodium (Colace) 100 mg PO TID [facility] Last Admin: 10/13/17 17:03 Dose: 100 mg Enoxaparin Sodium (Lovenox) 90 mg SC Q12 [facility] Stop: 10/14/17 12:00 Last Admin: 10/13/17 21:21 Dose: 90 mg Lisinopril (Zestril) 5 mg PO DAILY [facility] Last Admin: 10/13/17 10:18 Dose: 5 mg Metoprolol Tartrate (Lopressor) 50 mg PO BID [facility] Last Admin: 10/13/17 17:03 Dose: 50 mg Results - Vital Signs Recent Vital Signs: Last Vital Signs Temp 98.4 F 10/13/17 15:40 Pulse 86 10/13/17 17:35 Resp 20 10/13/17 15:40 BP 134/76 10/13/17 15:40 Pulse Ox 95 10/13/17 15:40 - Labs Result Diagrams: 10/14/17 08:41 10/14/17 08:41 Labs: Laboratory Results - last 24 hr 10/13/17 10/13/17 10/13/17 00:15 08:06 08:06 WBC 11.7 H RBC 4.04 Hgb 11.7 Hct 35.3 MCV 87.4 MCH 29.1 MCHC 33.3 RDW 14.5 Plt Count 321 MPV 8.5 Neut % (Auto) 69.9 Lymph % (Auto) 18.7 L [place] % (Auto) 9.2 Eos % (Auto) 1.2 Baso % (Auto) 1.0 Neut # (Auto) 8.2 H Lymph # (Auto) 2.2 [place] # (Auto) 1.1 H Eos # (Auto) 0.1 Baso # (Auto) 0.1 Sodium 141 Potassium 3.5 L Chloride 103 Carbon Dioxide 29 Anion Gap 13 BUN 11 Creatinine 0.7 Est GFR ( Amer) > 60 Est GFR (Non-Af Amer) > 60 Random Glucose 147 H Calcium 9.2 Phosphorus 3.9 Magnesium 2.1 Total Bilirubin 0.5 AST 16 ALT 20 Alkaline Phosphatase 98 Total Creatine Kinase 57 55 CK-MB (Mass) 2.75 1.60 Troponin I 0.4710 H* 0.2580 H* Total Protein 7.0 Albumin 3.7 Globulin 3.3 Albumin/Globulin Ratio 1.1 Triglycerides 120 Cholesterol 145 LDL Cholesterol Direct 83 HDL Cholesterol 26 L TSH 3rd Generation 1.06 Assessment & Plan - Assessment and Plan (Free Text) Assessment: (1) Atrial fibrillation with RVR Assessment & Plan: Cardiology (Dr. Talley) on consult-->help appreciated * New onset * CHADSVASC: 4 (age, sex, chf, htn) * HASBLED: 1 (Age) * Echocardiogram (10/12/17): Ascending Aorta is moderately dilated at 4.4 cm, mild concentric left ventricular hypertrophy. left ventricular function is moderately to markedly reduced, with diffuse hypokinesis. Left ventricular ejection fraction is visually about 30% Mild aortic regurgitation is present. * CT angio r/o PE (10/10/17): no evidence of pulmonary embolism. No acute abnormality. Mild aneurysmal dilatation of the ascending thoracic aorta. * Lovenox 1mg/sub [id number] (Lovenox 90mg subq Q12H) * Cardizem 30mg PO QID Status: Acute (2) Non-STEMI (non-ST elevated myocardial infarction) Assessment & Plan: * Echocardiogram (10/12/17): Ascending Aorta is moderately dilated at 4.4 cm, mild concentric left ventricular hypertrophy. left ventricular function is moderately to markedly reduced, with diffuse hypokinesis. Left ventricular ejection fraction is visually about 30% Mild aortic regurgitation is present. * CT angio r/o PE (10/10/17): no evidence of pulmonary embolism. No acute abnormality. Mild aneurysmal dilatation of the ascending thoracic aorta. * Patient has positive troponin overnight, which is downtrending * Order for repeat ELKIN this morning * Therapeutic Lovenox 1mg/kg sub12 for atrial fibrillation * Aspirin 81mg PO daily * Start Lisinopril 5mg PO daily * C/w Cardizem 30mg PO QID * Check lipid panel, a1c, TSH/Free T4 * Patient has not had a cardiac cath in the past Status: Acute (3) Thoracic aortic aneurysm without rupture Assessment & Plan: * CT angio r/o PE (10/10/17): no evidence of pulmonary embolism. No acute abnormality. Mild aneurysmal dilatation of the ascending thoracic aorta. * Echocardiogram (10/12/17): Ascending Aorta is moderately dilated at 4.4 cm, mild concentric left ventricular hypertrophy. left ventricular function is moderately to markedly reduced, with diffuse hypokinesis. Left ventricular ejection fraction is visually about 30% Mild aortic regurgitation is present. Status: Chronic (4) Systolic heart failure Assessment & Plan: * Cardiology (Dr. Talley) on case-->help appreciated * New onset * Acute exacerbation * Systolic Dysfunction * elevated proBNP * Echocardiogram (10/12/17): Ascending Aorta is moderately dilated at 4.4 cm, mild concentric left ventricular hypertrophy. left ventricular function is moderately to markedly reduced, with diffuse hypokinesis. Left ventricular ejection fraction is visually about 30%. Mild aortic regurgitation is present * CT angio r/o PE (10/10/17): no evidence of pulmonary embolism. No acute abnormality. Mild aneurysmal dilatation of the ascending thoracic aorta. * Aspirin 81mg PO daily * Cardizem 30mg PO QID * We will need to discuss with cardiology if to switch to beta-sunil given LV dysfunction * Start Lisinopril 5mg PO daily * Fluid restriction (1200ML) * Record intake and outputs Status: Acute (5) Hypertension Assessment & Plan: * Monitor vital signs * Cardizem 30mg PO QID * Start Lisinopril 5mg PO daily * Heart health, 2gm diet Status: Chronic (6) Elevated d-dimer Assessment & Plan: * Order for venous doppler rule out dvt given recent travel from [place] * Possible due to new onset atrial fibrillation RVR * CT angio r/o PE (10/10/17): no evidence of pulmonary embolism. No acute abnormality. Mild aneurysmal dilatation of the ascending thoracic aorta. Minor findings as above. * On therapuetic Lovenox for atrial fibrillation * Echocardiogram (10/12/17): Ascending Aorta is moderately dilated at 4.4 cm, mild concentric left ventricular hypertrophy. left ventricular function is moderately to markedly reduced, with diffuse hypokinesis. Left ventricular ejection fraction is visually about 30% Status: Acute (7) Leg pain, bilateral Assessment & Plan: f/u venous doppler: r/o dvt elevated d-dimer Wells's criteria: 1: moderate risk risk factor: recent plane ride (3 hours), obesity Status: Acute (8) Shortness of breath Assessment & Plan: * Patient has not formerly seen a grey roll man * she reports she feels short of breathe, reports she thinks she has had asthma , has not had PFTs as outpatient * Patient has had recent travel from [place], 3 hour plane ride * CT angio r/o PE (10/10/17): no evidence of pulmonary embolism. No acute abnormality. Mild aneurysmal dilatation of the ascending thoracic aorta. * Echocardiogram (10/12/17): Ascending Aorta is moderately dilated at 4.4 cm, mild concentric left ventricular hypertrophy. left ventricular function is moderately to markedly reduced, with diffuse hypokinesis. Left ventricular ejection fraction is visually about 30% Status: Acute (9) Prophylactic measure Assessment & Plan: * Lovenox 1mg/subq 12hour * Fluid restriction * Intake and output * Pepcid 20mg PO BID for GI ppx Status: Acute
[2017-10-14] MEDS: Albuterol-Ipratrop 3 mg / 0.5 (3 ml) UD INH SCH ×6 (00:43→19:23)
[2017-10-14] MEDS: Budesonide 0.5 mg/2 ml Inhal Susp UD INH SCH ×2 (07:51→19:23)
[2017-10-14 08:54] LABS: BASO # 0.1 K/uL (0.0-0.2); BASO % 1.1 % (0.0-2.0); EOS # 0.1 K/uL (0.0-0.7); EOS % 1.1 % (0.0-4.0); LYMPH # 2.5 K/uL (1.0-4.3); LYMPH % 23.3 % (20.0-40.0); MEAN CELL VOLUME 87.8 fL (81.0-99.0); MEAN CORPUSCULAR HEMOGLOBIN 30.1 pg (27.0-31.0); MEAN CORPUSCULAR HGB CONC 34.3 g/dL (33.0-37.0); MEAN PLATELET VOLUME 8.5 fL (7.2-11.7); MONO # 0.9 K/uL (0.0-0.8); MONO % 8.4 % (0.0-10.0); NEUT # 7.2 K/uL (1.8-7.0); NEUT % 66.1 % (50.0-75.0); RBC 3.99 Mil/uL (3.80-5.20); RED CELL DISTRIBUTION WIDTH 14.7 % (11.5-14.5); WHITE BLOOD COUNT 10.8 K/uL (4.8-10.8)
[2017-10-14 09:31] LABS: ALBUMIN 3.6 g/dL (3.5-5.0); ALT/SGPT 20 U/L (9-52); AST/SGOT 17 U/L (14-36); BLOOD UREA NITROGEN 11 mg/dL (7-17); GFR AFRICAN-AMERICAN > 60; GFR NON-AFRICAN AMERICAN > 60
[2017-10-14] MEDS ORDERED: Pneumococcal 23-Valent Vaccine IM ONE (10:00)
[2017-10-14] MEDS: Enoxaparin 80 mg Syringe SC SCH ×2 (10:15→22:01)
--- NOTE | 2017-10-14 12:59 | CP.PCM.PN ---
Objective - Vital Signs/Intake and Output Vital Signs (last 24 hours): Temp Pulse Resp BP Pulse Ox 98.4 F 109 H 20 138/83 97 10/14/17 07:40 10/14/17 07:40 10/14/17 07:40 10/14/17 07:40 10/14/17 07:40 - Medications Medications: Current Medications Acetaminophen (Tylenol 325mg Tab) 650 mg PO Q6 PRN PRN Reason: Pain, moderate (4-7) Last Admin: 10/13/17 10:17 Dose: 650 mg Albuterol/Ipratropium (Duoneb 3 Mg/0.5 Mg (3 Ml) Ud) 3 ml INH RQ4 [facility] Last Admin: 10/14/17 07:51 Dose: 3 ml Aspirin (Ecotrin) 81 mg PO DAILY [facility] Last Admin: 10/14/17 10:08 Dose: 81 mg Budesonide (Pulmicort Respules) 0.5 mg INH RQ12 [facility] Last Admin: 10/14/17 07:51 Dose: 0.5 mg Docusate Sodium (Colace) 100 mg PO TID [facility] Last Admin: 10/14/17 10:08 Dose: 100 mg Enoxaparin Sodium (Lovenox) 90 mg SC Q12 [facility] Last Admin: 10/14/17 10:15 Dose: 90 mg Lisinopril (Zestril) 5 mg PO DAILY [facility] Last Admin: 10/14/17 10:08 Dose: 5 mg Metoprolol Tartrate (Lopressor) 50 mg PO BID [facility] Last Admin: 10/14/17 10:08 Dose: 50 mg - Labs Labs: 10/14/17 08:41 10/14/17 08:41 PT 14.3 SECONDS (9.7-12.2) H 10/12/17 11:34 INR 1.3 10/12/17 11:34 APTT 31 SECONDS (21-34) D 10/12/17 11:34
--- NOTE | 2017-10-14 14:20 | CP.PCM.PN ---
Subjective - Date & Time of Evaluation Date of Evaluation: 10/14/17 Time of Evaluation: 13:20 - Subjective Subjective: patient seen And examined Breathing better No chest pain Afebrile Continue nebulizer treatment and steroids Cardiac catheter tomorrow Lasix Objective - Vital Signs/Intake and Output Vital Signs (last 24 hours): Temp Pulse Resp BP Pulse Ox 98.4 F 109 H 20 156/90 H 97 10/14/17 07:40 10/14/17 07:40 10/14/17 07:40 10/14/17 13:22 10/14/17 07:40 - Medications Medications: Current Medications Acetaminophen (Tylenol 325mg Tab) 650 mg PO Q6 PRN PRN Reason: Pain, moderate (4-7) Last Admin: 10/13/17 10:17 Dose: 650 mg Albuterol/Ipratropium (Duoneb 3 Mg/0.5 Mg (3 Ml) Ud) 3 ml INH RQ4 [facility] Last Admin: 10/14/17 11:30 Dose: Not Given Aspirin (Ecotrin) 81 mg PO DAILY [facility] Last Admin: 10/14/17 10:08 Dose: 81 mg Budesonide (Pulmicort Respules) 0.5 mg INH RQ12 [facility] Last Admin: 10/14/17 07:51 Dose: 0.5 mg Docusate Sodium (Colace) 100 mg PO TID [facility] Last Admin: 10/14/17 10:08 Dose: 100 mg Enoxaparin Sodium (Lovenox) 90 mg SC Q12 [facility] Stop: 10/15/17 00:01 Last Admin: 10/14/17 10:15 Dose: 90 mg Lisinopril (Zestril) 5 mg PO DAILY [facility] Last Admin: 10/14/17 10:08 Dose: 5 mg Metoprolol Tartrate (Lopressor) 50 mg PO BID [facility] Last Admin: 10/14/17 10:08 Dose: 50 mg - Labs Labs: 10/14/17 08:41 10/14/17 08:41 PT 14.3 SECONDS (9.7-12.2) H 10/12/17 11:34 INR 1.3 10/12/17 11:34 APTT 31 SECONDS (21-34) D 10/12/17 11:34 Assessment and Plan (1) COPD exacerbation Status: Acute (2) Atrial fibrillation with RVR Status: Acute (3) Non-STEMI (non-ST elevated myocardial infarction) Status: Acute (4) Thoracic aortic aneurysm without rupture Status: Chronic
--- NOTE | 2017-10-14 16:45 | CP.PCM.PN ---
Subjective - Date & Time of Evaluation Date of Evaluation: 10/14/17 Time of Evaluation: 16:45 - Subjective Subjective: Patient seen and evaluated Some dyspnea and chest pain still exist Review of Systems - Review of Systems Systems not reviewed;Unavailable: Language Barrier - Constitutional Constitutional: absent: Weight Loss, Weakness - EENT Ears: absent: Ear Discharge, Ear Pain Nose/Mouth/Throat: absent: Nasal Congestion - Cardiovascular Cardiovascular: Dyspnea on Exertion, Palpitations. absent: Chest Pain - Respiratory Respiratory: Dyspnea, Wheezing. absent: Cough - Gastrointestinal Gastrointestinal: absent: Diarrhea, Nausea, Vomiting - Genitourinary Genitourinary: absent: Difficulty Urinating, Dysuria - Integumentary Integumentary: absent: Dry Skin, Skin Pain - Neurological Neurological: absent: Headaches, Weakness - Psychiatric Psychiatric: absent: Anxiety, Irritability - Endocrine Endocrine: Palpitations. absent: Fatigue, Polyuria Physical Exam - Constitutional Appears: Non-toxic, No Acute Distress - Head Exam Head Exam: ATRAUMATIC, NORMAL INSPECTION, NORMOCEPHALIC - Eye Exam Eye Exam: EOMI, Normal appearance Pupil Exam: NORMAL ACCOMODATION - ENT Exam ENT Exam: Mucous Membranes Moist - Neck Exam Neck exam: Positive for: Full Rom - Respiratory Exam Respiratory Exam: Wheezes - Expanded Respiratory Exam Expanded Respiratory: wheezes: Right (all lung sampson) - Cardiovascular Exam Cardiovascular Exam: +S1, +S2. absent: Tachycardia, JVD Additional comments: no carotid bruit appreciated - GI/Abdominal Exam GI & Abdominal Exam: Soft. absent: Firm, Guarding, Tenderness - Extremities Exam Extremities exam: Positive for: normal capillary refill, pedal pulses present. Negative for: calf tenderness, pedal edema - Back Exam Back exam: FULL ROM. absent: muscle spasm - Neurological Exam Neurological exam: Alert, Oriented x3 - Psychiatric Exam Psychiatric exam: Normal Affect, Normal Mood - Skin Skin Exam: Dry, Normal Color, Warm Objective - Vital Signs/Intake and Output Vital Signs (last 24 hours): Temp Pulse Resp BP Pulse Ox 98.9 F 92 H 20 132/84 98 10/14/17 16:00 10/14/17 16:00 10/14/17 16:00 10/14/17 16:00 10/14/17 16:00 - Medications Medications: Current Medications Acetaminophen (Tylenol 325mg Tab) 650 mg PO Q6 PRN PRN Reason: Pain, moderate (4-7) Last Admin: 10/13/17 10:17 Dose: 650 mg Albuterol/Ipratropium (Duoneb 3 Mg/0.5 Mg (3 Ml) Ud) 3 ml INH RQ4 [facility] Last Admin: 10/14/17 15:28 Dose: 3 ml Aspirin (Ecotrin) 81 mg PO DAILY [facility] Last Admin: 10/14/17 10:08 Dose: 81 mg Budesonide (Pulmicort Respules) 0.5 mg INH RQ12 [facility] Last Admin: 10/14/17 07:51 Dose: 0.5 mg Docusate Sodium (Colace) 100 mg PO TID [facility] Last Admin: 10/14/17 14:51 Dose: 100 mg Enoxaparin Sodium (Lovenox) 90 mg SC Q12 [facility] Stop: 10/15/17 00:01 Last Admin: 10/14/17 10:15 Dose: 90 mg Lisinopril (Zestril) 5 mg PO DAILY [facility] Last Admin: 10/14/17 10:08 Dose: 5 mg Metoprolol Tartrate (Lopressor) 50 mg PO BID [facility] Last Admin: 10/14/17 10:08 Dose: 50 mg - Labs Labs: 10/14/17 08:41 10/14/17 08:41 PT 14.3 SECONDS (9.7-12.2) H 10/12/17 11:34 INR 1.3 10/12/17 11:34 APTT 31 SECONDS (21-34) D 10/12/17 11:34 Assessment and Plan - Assessment and Plan (Free Text) Assessment: (1) Atrial fibrillation with RVR now NSR Assessment & Plan: * New onset * CHADSVASC: 4 (age, sex, chf, htn) * HASBLED: 1 (Age) * Echocardiogram (10/12/17): Ascending Aorta is moderately dilated at 4.4 cm, mild concentric left ventricular hypertrophy. left ventricular function is moderately to markedly reduced, with diffuse hypokinesis. Left ventricular ejection fraction is visually about 30% Mild aortic regurgitation is present. * CT angio r/o PE (10/10/17): no evidence of pulmonary embolism. No acute abnormality. Mild aneurysmal dilatation of the ascending thoracic aorta. * Lovenox 1mg/sub [id number] (Lovenox 90mg subq Q12H) * Cardizem 30mg PO QID Status: Acute (2) Non-STEMI (non-ST elevated myocardial infarction) Assessment & Plan: * Echocardiogram (10/12/17): Ascending Aorta is moderately dilated at 4.4 cm, mild concentric left ventricular hypertrophy. left ventricular function is moderately to markedly reduced, with diffuse hypokinesis. Left ventricular ejection fraction is visually about 30% Mild aortic regurgitation is present. * CT angio r/o PE (10/10/17): no evidence of pulmonary embolism. No acute abnormality. Mild aneurysmal dilatation of the ascending thoracic aorta. * Patient has positive troponin overnight, which is downtrending * Order for repeat ELKIN this morning * Therapeutic Lovenox 1mg/kg sub12 for atrial fibrillation * Aspirin 81mg PO daily * Start Lisinopril 5mg PO daily * C/w Cardizem 30mg PO QID * Check lipid panel, a1c, TSH/Free T4 * Patient has not had a cardiac cath in the past Status: Acute (3) Thoracic aortic aneurysm without rupture Assessment & Plan: * CT angio r/o PE (10/10/17): no evidence of pulmonary embolism. No acute abnormality. Mild aneurysmal dilatation of the ascending thoracic aorta. * Echocardiogram (10/12/17): Ascending Aorta is moderately dilated at 4.4 cm, mild concentric left ventricular hypertrophy. left ventricular function is moderately to markedly reduced, with diffuse hypokinesis. Left ventricular ejection fraction is visually about 30% Mild aortic regurgitation is present. Status: Chronic (4) Systolic heart failure Assessment & Plan: * Cardiology (Dr. Talley) on case-->help appreciated * New onset * Acute exacerbation * Systolic Dysfunction * elevated proBNP * Echocardiogram (10/12/17): Ascending Aorta is moderately dilated at 4.4 cm, mild concentric left ventricular hypertrophy. left ventricular function is moderately to markedly reduced, with diffuse hypokinesis. Left ventricular ejection fraction is visually about 30%. Mild aortic regurgitation is present * CT angio r/o PE (10/10/17): no evidence of pulmonary embolism. No acute abnormality. Mild aneurysmal dilatation of the ascending thoracic aorta. * Aspirin 81mg PO daily * Cardizem 30mg PO QID * We will need to discuss with cardiology if to switch to beta-sunil given LV dysfunction * Start Lisinopril 5mg PO daily * Fluid restriction (1200ML) * Record intake and outputs Status: Acute (5) Hypertension Assessment & Plan: * Monitor vital signs * Cardizem 30mg PO QID * Start Lisinopril 5mg PO daily * Heart health, 2gm diet Status: Chronic (6) Elevated d-dimer Assessment & Plan: * Order for venous doppler rule out dvt given recent travel from [place] * Possible due to new onset atrial fibrillation RVR * CT angio r/o PE (10/10/17): no evidence of pulmonary embolism. No acute abnormality. Mild aneurysmal dilatation of the ascending thoracic aorta. Minor findings as above. * On therapuetic Lovenox for atrial fibrillation * Echocardiogram (10/12/17): Ascending Aorta is moderately dilated at 4.4 cm, mild concentric left ventricular hypertrophy. left ventricular function is moderately to markedly reduced, with diffuse hypokinesis. 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 No acute abnormality. Mild aneurysmal dilatation of the ascending thoracic aorta. * Echocardiogram (10/12/17): Ascending Aorta is moderately dilated at 4.4 cm, mild concentric left ventricular hypertrophy. left ventricular function is moderately to markedly reduced, with diffuse hypokinesis. Left ventricular ejection fraction is visually about 30% Status: Acute (9) Prophylactic measure Assessment & Plan: * Lovenox 1mg/subq 12hour * Fluid restriction * Intake and output * Pepcid 20mg PO BID for GI ppx Status: Acute For cath tomorrow
--- NOTE | 2017-10-14 17:11 | CP.PCM.PN ---
Subjective - Date & Time of Evaluation Date of Evaluation: 10/14/17 Time of Evaluation: 13:00 - Subjective Subjective: Medical Attending Note: patient seen, examined and case discussed with cardiology at bedside. Patient seen at bedside with multiple family members. Patient noted for shortness of breathe and wheezing. Patient is a current smoker and multiple family members identifed as smokers. Patient needed additional Lasix 40mg IV today given shortness of breathe. Patient denies abdominal pain, denies nausea, denies vomitting, reports swelling in lower extremities. Objective - Vital Signs/Intake and Output Vital Signs (last 24 hours): Temp Pulse Resp BP Pulse Ox 98.9 F 95 H 20 132/84 98 10/14/17 16:00 10/14/17 16:00 10/14/17 16:00 10/14/17 16:00 10/14/17 16:00 - Medications Medications: Current Medications Acetaminophen (Tylenol 325mg Tab) 650 mg PO Q6 PRN PRN Reason: Pain, moderate (4-7) Last Admin: 10/13/17 10:17 Dose: 650 mg Albuterol/Ipratropium (Duoneb 3 Mg/0.5 Mg (3 Ml) Ud) 3 ml INH RQ4 [facility] Last Admin: 10/14/17 15:28 Dose: 3 ml Aspirin (Ecotrin) 81 mg PO DAILY [facility] Last Admin: 10/14/17 10:08 Dose: 81 mg Budesonide (Pulmicort Respules) 0.5 mg INH RQ12 [facility] Last Admin: 10/14/17 07:51 Dose: 0.5 mg Docusate Sodium (Colace) 100 mg PO TID [facility] Last Admin: 10/14/17 14:51 Dose: 100 mg Enoxaparin Sodium (Lovenox) 90 mg SC Q12 [facility] Stop: 10/15/17 00:01 Last Admin: 10/14/17 10:15 Dose: 90 mg Lisinopril (Zestril) 5 mg PO DAILY [facility] Last Admin: 10/14/17 10:08 Dose: 5 mg Metoprolol Tartrate (Lopressor) 50 mg PO BID [facility] Last Admin: 10/14/17 10:08 Dose: 50 mg - Labs Labs: 10/14/17 08:41 10/14/17 08:41 PT 14.3 SECONDS (9.7-12.2) H 10/12/17 11:34 INR 1.3 10/12/17 11:34 APTT 31 SECONDS (21-34) D 10/12/17 11:34 - Constitutional Appears: Non-toxic, No Acute Distress - Head Exam Head Exam: NORMAL INSPECTION - Eye Exam Eye Exam: EOMI, PERRL - ENT Exam ENT Exam: Mucous Membranes Moist - Respiratory Exam Respiratory Exam: Wheezes (all 4 lungs), NORMAL BREATHING PATTERN. absent: Respiratory Distress, Stridor - Cardiovascular Exam Cardiovascular Exam: REGULAR RHYTHM, +S1, +S2 - GI/Abdominal Exam GI & Abdominal Exam: Soft, Normal Bowel Sounds. absent: Distended, Firm, Guarding, Rigid, Tenderness, Rebound - Extremities Exam Extremities Exam: absent: Pedal Edema, Tenderness - Neurological Exam Neurological Exam: Alert, Awake, Oriented x3 - Psychiatric Exam Psychiatric exam: Normal Affect, Normal Mood - Skin Skin Exam: Dry, Intact, Normal Color, Warm Assessment and Plan (1) Atrial fibrillation with RVR Status: Acute (2) Non-STEMI (non-ST elevated myocardial infarction) Status: Acute (3) Thoracic aortic aneurysm without rupture Status: Chronic (4) Systolic heart failure Status: Acute (5) Hypertension Status: Chronic (6) Elevated d-dimer Status: Acute (7) Leg pain, bilateral Status: Acute (8) Shortness of breath Status: Acute (9) Prophylactic measure Status: Acute Attending/Attestation - Attestation I have personally seen and examined this patient.: Yes I have fully participated in the care of the patient.: Yes I have reviewed all pertinent clinical information, including history, physical exam and plan: Yes Notes (Text): Assessment and Plan (1) Atrial fibrillation with RVR Assessment & Plan: * Cardiology (Dr. Talley) on consult-->help appreciated * New onset * CHADSVASC: 4 (age, sex, chf, htn) * HASBLED: 1 (Age) * Echocardiogram (10/12/17): Ascending Aorta is moderately dilated at 4.4 cm, mild concentric left ventricular hypertrophy. left ventricular function is moderately to markedly reduced, with diffuse hypokinesis. Left ventricular ejection fraction is visually about 30% Mild aortic regurgitation is present. * CT angio r/o PE (10/10/17): no evidence of pulmonary embolism. No acute abnormality. Mild aneurysmal dilatation of the ascending thoracic aorta. * Lovenox 1mg/sub [id number] (Lovenox 90mg subq Q12H) * To hold at midnight tonight for cath in the AM * Note: patient will need anticoagulation for atrial fibrillation post cath; please f/u with cardiology regarding this post-cath * Aspirin 81mg PO daily * c/w Lopressor 50mg PO BID * Patient is scheduled for cardiac cath tomorrow tentatively 12PM on October 15 given nonstemi and persistent shortness of breathe and chest pain. Patient receive last dose of therapuetic lovenox on 10/14/17 evening and to be NPO tomorrow for cath. NPO except for medications. May have aspirin and plavix prior to cath per cardiology Status: Acute (2) Non-STEMI (non-ST elevated myocardial infarction) Assessment & Plan: * Cardiology (Dr. Talley) on board-->help appreciated * Echocardiogram (10/12/17): Ascending Aorta is moderately dilated at 4.4 cm, mild concentric left ventricular hypertrophy. left ventricular function is moderately to markedly reduced, with diffuse hypokinesis. Left ventricular ejection fraction is visually about 30% Mild aortic regurgitation is present. * CT angio r/o PE (10/10/17): no evidence of pulmonary embolism. No acute abnormality. Mild aneurysmal dilatation of the ascending thoracic aorta. * Patient has positive troponin overnight, which is downtrending. * Therapeutic Lovenox 1mg/kg sub12 for atrial fibrillation and nonstemi * Aspirin 81mg PO daily * Start Lisinopril 5mg PO daily * c/w Lopressor 50mg PO BID * start Crestor 5mg POqHS * Patient has not had a cardiac cath in the past. * Patient is scheduled for cardiac cath tomorrow tentatively 12PM on October 15 given nonstemi and persistent shortness of breathe and chest pain. Patient receive last dose of therapuetic lovenox on 10/14/17 evening and to be NPO tomorrow for cath. NPO except for medications. May have aspirin and plavix prior to cath per cardiology Status: Acute (3) Systolic heart failure, new onset possible ischemic cardiomyopathy? Assessment & Plan: * Cardiology (Dr. Talley) on case-->help appreciated * New onset * Acute exacerbation * Systolic Dysfunction * elevated proBNP * Echocardiogram (10/12/17): Ascending Aorta is moderately dilated at 4.4 cm, mild concentric left ventricular hypertrophy. left ventricular function is moderately to markedly reduced, with diffuse hypokinesis. Left ventricular ejection fraction is visually about 30%. Mild aortic regurgitation is present * CT angio r/o PE (10/10/17): no evidence of pulmonary embolism. No acute abnormality. Mild aneurysmal dilatation of the ascending thoracic aorta. * Aspirin 81mg PO daily * start Plavix 75mg PO daily * c/w Lopressor 50mg PO BID * c/w Lisinopril 5mg PO daily * start Lasix 40mg IV qdaily * start Crestor 5mg POqHS * Fluid restriction (1200ML) * Record intake and outputs * Patient is scheduled for cardiac cath tomorrow tentatively 12PM on October 15 given nonstemi and persistent shortness of breathe and chest pain. Patient receive last dose of therapuetic lovenox on 10/14/17 evening and to be NPO tomorrow for cath. NPO except for medications. May have aspirin and plavix prior to cath per cardiology Status: Acute (4) Thoracic aortic aneurysm without rupture Assessment & Plan: * CT angio r/o PE (10/10/17): no evidence of pulmonary embolism. No acute abnormality. Mild aneurysmal dilatation of the ascending thoracic aorta. * Echocardiogram (10/12/17): Ascending Aorta is moderately dilated at 4.4 cm, mild concentric left ventricular hypertrophy. left ventricular function is moderately to markedly reduced, with diffuse hypokinesis. Left ventricular ejection fraction is visually about 30% Mild aortic regurgitation is present. Status: Chronic (5) Hypertension Assessment & Plan: * Monitor vital signs * c/w Lopressor 50mg PO BID * c/w Lisinopril 5mg PO daily * Heart [employer], 2gm diet Status: Chronic (6) Elevated d-dimer Assessment & Plan: * Order for venous doppler rule out dvt given recent travel from [place] * Pending official report * Possible due to new onset atrial fibrillation RVR, unclear if any CAD hx * CT angio r/o PE (10/10/17): no evidence of pulmonary embolism. No acute abnormality. Mild aneurysmal dilatation of the ascending thoracic aorta. Minor findings as above. * On therapuetic Lovenox for atrial fibrillation * Echocardiogram (10/12/17): Ascending Aorta is moderately dilated at 4.4 cm, mild concentric left ventricular hypertrophy. left ventricular function is moderately to markedly reduced, with diffuse hypokinesis. 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 No acute abnormality. Mild aneurysmal dilatation of the ascending thoracic aorta. * Echocardiogram (10/12/17): Ascending Aorta is moderately dilated at 4.4 cm, mild concentric left ventricular hypertrophy. left ventricular function is moderately to markedly reduced, with diffuse hypokinesis. Left ventricular ejection fraction is visually about 30% * Counselled against smoking * Budesonide 0.5mg INH RQ12H * Duoneb 3ml INH RQ4H Status: Acute (9) Current smoker Assessment & Plan: * Counselled at bedside against side effects of smoking; predominant family history * Will start Nicotine patch (10) Constipation Assessment & Plan: * Monitor for bowel movement * Colace 100mg PO BID (11) Prophylactic measure Assessment & Plan: * Lovenox 1mg/subq 12hour * To stop at midnight tonight * Fluid restriction * Intake and output * Pepcid 20mg PO BID for GI ppx * PMD: kimberly Status: Acute Disposition: Patient is going for cardiac cath tomorrow at noon with Dr. Talley in light of nontemi and shortness of breathe/chest pain symptoms. Post cath, we will need to f/u with cardiology regarding anticoagulation since patient is new- onset atrial fibrillation. We are awaiting official reports of lower extremity dopplers which have not been read yet. monitor for bowel movement.
[2017-10-14] MEDS ORDERED: Dextrose 50% SYRINGE Inj (50 ml) IV PRN (17:38)
[2017-10-14] MEDS ORDERED: Glucagon Recombinant 1 mg Inj IM PRN (17:38)
[2017-10-14] MEDS ORDERED: Dextrose 50% SYRINGE Inj (50 ml) IVP PRN (17:38)
[2017-10-14] MEDS ORDERED: Enoxaparin 100 mg Syringe SC SCH (22:00)
[2017-10-15] MEDS: Albuterol-Ipratrop 3 mg / 0.5 (3 ml) UD INH SCH ×6 (00:19→20:41)
[2017-10-15 06:26] LABS: BASO # 0.1 K/uL (0.0-0.2); BASO % 0.6 % (0.0-2.0); EOS # 0.2 K/uL (0.0-0.7); EOS % 1.8 % (0.0-4.0); HEMOGLOBIN 12.4 g/dL (11.0-16.0); LYMPH # 2.7 K/uL (1.0-4.3); LYMPH % 27.7 % (20.0-40.0); MEAN CELL VOLUME 87.8 fL (81.0-99.0); MEAN CORPUSCULAR HEMOGLOBIN 29.2 pg (27.0-31.0); MEAN CORPUSCULAR HGB CONC 33.2 g/dL (33.0-37.0); MEAN PLATELET VOLUME 7.9 fL (7.2-11.7); MONO % 9.8 % (0.0-10.0); NEUT # 5.9 K/uL (1.8-7.0); NEUT % 60.1 % (50.0-75.0); RBC 4.24 Mil/uL (3.80-5.20); RED CELL DISTRIBUTION WIDTH 14.6 % (11.5-14.5); WHITE BLOOD COUNT 9.7 K/uL (4.8-10.8)
[2017-10-15 06:34] LABS: INR 1.3; PROTHROMBIN TIME 13.8 SECONDS (9.7-12.2)
[2017-10-15] MEDS: Budesonide 0.5 mg/2 ml Inhal Susp UD INH SCH ×2 (07:35→20:41)
[2017-10-15 07:38] LABS: ALBUMIN 3.7 g/dL (3.5-5.0); ALT/SGPT 24 U/L (9-52); AST/SGOT 33 U/L (14-36); BLOOD UREA NITROGEN 16 mg/dL (7-17); CALCIUM 9.6 mg/dl (8.6-10.4); GFR AFRICAN-AMERICAN > 60; GFR NON-AFRICAN AMERICAN > 60
[2017-10-15] MEDS ORDERED: Lidocaine 2% MPF (5 ml) Inj ONE (12:14)
[2017-10-15] MEDS ORDERED: Iohexol 350mg/ml 100 ML ONE (12:14)
[2017-10-15] MEDS ORDERED: Midazolam 2 MG/2 ML VIAL ONE (12:15)
--- NOTE | 2017-10-15 12:15 | CARD ---
APPROVED REPORT Date of service: 10/13/2017 EKG Measurement Heart [id number] MI [id number] <Conclusion> Normal sinus rhythm Nonspecific T wave abnormality Prolonged QT Abnormal ECG
[2017-10-15] MEDS ORDERED: Nitroglycerin 50mg in D5W 0 MG/0 ML BOTTLE IV ONE (12:22)
[2017-10-15] MEDS ORDERED: Verapamil 0 ML ONE (12:22)
--- NOTE | 2017-10-15 13:11 | VASCLAB ---
Date of service: 10/13/2017 PROCEDURE: Lower Extremity Venous Duplex Exam. HISTORY: elevated d-dimer, r/o dvt PRIORS: None. TECHNIQUE: Bilateral common femoral, femoral, popliteal and posterior tibial, peroneal and great saphenous veins were evaluated. Flow was assessed with color Doppler, compressibility, assessment of phasic flow and augmentation response. Report prepared by Ramona Hi Jackie FINDINGS: RIGHT: 1. Common Femoral Vein: 1.1. Compressibility - Fully compressible: Thrombus - None : Flow - Phasic: Augmentation -Normal: Reflux - None. 2. Femoral Vein: 2.1. Compressibility - Fully compressible: Thrombus - None : Flow - Phasic: Augmentation -Normal: Reflux - None. 3. Popliteal Vein: 3.1. Compressibility - Fully compressible: Thrombus - None : Flow - Phasic: Augmentation -Normal: Reflux - None. 4. Posterior Tibial Vein: 4.1. Compressibility - Fully compressible: Thrombus - None: Flow - Phasic: Augmentation -Normal: Reflux - None. 5. Peroneal Vein: 5.1. Compressibility - Fully compressible: Thrombus - None: Flow - Phasic: Augmentation -Normal: Reflux - None. 6. Great Saphenous Vein: 6.1. Compressibility - Fully compressible: Thrombus - None: Flow - Phasic: Augmentation - Normal: Reflux - None. LEFT: 1. Common Femoral Vein: 1.1. Compressibility - Fully compressible: Thrombus - None: Flow - Phasic: Augmentation -Normal: Reflux - None. 2. Femoral Vein: 2.1. Compressibility - Fully compressible: Thrombus - None: Flow - Phasic: Augmentation -Normal: Reflux - None. 3. Popliteal Vein: 3.1. Compressibility - Fully compressible: Thrombus - None : Flow - Phasic: Augmentation -Normal: Reflux - None. 4. Posterior Tibial Vein: 4.1. Compressibility - Fully compressible: Thrombus - None: Flow - Phasic: Augmentation -Normal: Reflux - None. 5. Peroneal Vein: 5.1. Compressibility - Fully compressible: Thrombus - None: Flow - Phasic: Augmentation -Normal: Reflux - None. 6. Great Saphenous Vein: 6.1. Compressibility - Fully compressible: Thrombus - None: Flow - Phasic: Augmentation - Normal: Reflux - None. OTHER FINDINGS: Right: None significant. Left: None significant. IMPRESSION: Right: No evidence of deep or superficial vein thrombosis of the right lower extremity. Normal valve function noted of the right side. Left: No evidence of deep or superficial vein thrombosis of the left lower extremity. Normal valve function noted of the left side.
--- NOTE | 2017-10-15 17:20 | CP.PCM.PN ---
Addendum entered and electronically signed by Alvarado Burns DO 10/15/17 17:50 : Viridiana THOMPSON'ed under prophylaxis Original Note: <Alvarado Burns - Last Filed: 10/15/17 17:44> Subjective - Date & Time of Evaluation Date of Evaluation: 10/15/17 Time of Evaluation: 17:13 - Subjective Subjective: PGY-1 Medicine [place] Note Patient seen and examined at bedside. Patient offers no acute complaints. Patient denies chest pain, sob, n/v, constipation or diarrhea. Patient also denies headaches, palpitations, vision changes, and dizziness. As per nursing no acute events overnight. Objective - Vital Signs/Intake and Output Vital Signs (last 24 hours): Temp Pulse Resp BP Pulse Ox 98.6 F 89 20 159/87 H 98 10/15/17 11:05 10/15/17 11:05 10/15/17 11:05 10/15/17 11:05 10/15/17 11:05 - Medications Medications: Current Medications Acetaminophen (Tylenol 325mg Tab) 650 mg PO Q6 PRN PRN Reason: Pain, moderate (4-7) Last Admin: 10/14/17 18:16 Dose: 650 mg Albuterol/Ipratropium (Duoneb 3 Mg/0.5 Mg (3 Ml) Ud) 3 ml INH RQ4 [facility] Last Admin: 10/15/17 15:38 Dose: 3 ml Aspirin (Ecotrin) 81 mg PO DAILY [facility] Last Admin: 10/15/17 09:29 Dose: 81 mg Budesonide (Pulmicort Respules) 0.5 mg INH RQ12 [facility] Last Admin: 10/15/17 07:35 Dose: 0.5 mg Clopidogrel Bisulfate (Plavix) 75 mg PO DAILY [facility] Last Admin: 10/15/17 09:29 Dose: 75 mg Dextrose (Dextrose 50% Inj) 50 ml IVP ONCE PRN PRN Reason: Hypoglycemia Dextrose (Dextrose 50% Inj) 0 ml IV STAT PRN; Protocol PRN Reason: Hypoglycemia Protocol Dextrose (Glutose 15) 0 gm PO ONCE PRN; Protocol PRN Reason: Hypoglycemia Protocol Docusate Sodium (Colace) 100 mg PO TID [facility] Last Admin: 10/15/17 14:10 Dose: Not Given Enoxaparin Sodium (Lovenox) 90 mg SC Q12 [facility] Furosemide (Lasix) 40 mg IVP DAILY [facility] Last Admin: 10/15/17 09:29 Dose: 40 mg Glucagon (Glucagen Diagnostic Kit) 0 mg IM STAT PRN; Protocol PRN Reason: Hypoglycemia Protocol Dextrose (Dextrose 5% In Water 1000 Ml) 1,000 mls @ 0 mls/hr IV .Q0M PRN; Protocol; Per Protocol PRN Reason: Hypoglycemia Protocol Sodium Chloride (Sodium Chloride 0.45%) 500 mls @ 50 mls/hr IV .Q10H [facility] Stop: 10/16/17 02:30 Lisinopril (Zestril) 5 mg PO DAILY [facility] Last Admin: 10/15/17 09:29 Dose: 5 mg Metoprolol Tartrate (Lopressor) 50 mg PO BID [facility] Last Admin: 10/15/17 09:29 Dose: 50 mg Nicotine (Nicoderm Cq) 1 patch TD DAILY [facility] Last Admin: 10/15/17 09:29 Dose: 1 patch Rosuvastatin Calcium (Crestor) 5 mg PO HS [facility] Last Admin: 10/14/17 21:54 Dose: 5 mg - Labs Labs: 10/15/17 06:10 10/15/17 06:10 PT 13.8 SECONDS (9.7-12.2) H 10/15/17 06:10 INR 1.3 10/15/17 06:10 APTT 44 SECONDS (21-34) H D 10/15/17 06:10 - Constitutional Appears: Non-toxic, No Acute Distress - Head Exam Head Exam: NORMAL INSPECTION, NORMOCEPHALIC - Eye Exam Eye Exam: EOMI, Normal appearance. absent: Nystagmus, Scleral icterus - ENT Exam ENT Exam: Mucous Membranes Moist, Normal Exam - Neck Exam Neck Exam: Full ROM, Normal Inspection - Respiratory Exam Respiratory Exam: Clear to Ausculation Bilateral, NORMAL BREATHING PATTERN. absent: Rales, Rhonchi, Wheezes - Cardiovascular Exam Cardiovascular Exam: REGULAR RHYTHM, +S1, +S2. absent: Murmur - GI/Abdominal Exam GI & Abdominal Exam: Soft, Normal Bowel Sounds. absent: Bruit, Distended, Tenderness - Extremities Exam Extremities Exam: Normal Inspection. absent: Pedal Edema - Back Exam Back Exam: NORMAL INSPECTION. absent: CVA tenderness (L), CVA tenderness (R) - Neurological Exam Neurological Exam: Alert, Awake, Oriented x3 - Psychiatric Exam Psychiatric exam: Normal Affect, Normal Mood - Skin Skin Exam: Normal Color, Warm Assessment and Plan - Assessment and Plan (Free Text) Assessment: Pt is a 66 y.o female with PMH of HTN comes to the hospital for evaluation of shortness of breath and palpitations over the course of the past few days. Tropononis elevated x 3; New onset afib was diagnosed with echo showing a EF of 30%; Dr. Talley did cardiac cath today however it showed blockage of left cirucmflex which needs PCI however he must speak to family first; Cath showed AAA; U/s ordered for tomorrow Plan: Non-STEMI Cardiac cath showed a blockage in the left circumflex and needs PCI- Dr. Talley will speak with family first Troponins elevated (10/12-10/13)x 3 Cardiology (Dr. Talley) on board-->help appreciated Echocardiogram (10/12/17): Ascending Aorta is moderately dilated at 4.4 cm, mild concentric left ventricular hypertrophy. left ventricular function is moderately to markedly reduced, with diffuse hypokinesis. Left ventricular ejection fraction is visually about 30% Mild aortic regurgitation is present. CT angio r/o PE (10/10/17): no evidence of pulmonary embolism. No acute abnormality. Mild aneurysmal dilatation of the ascending thoracic aorta. Aspirin 81mg po daily Lopressor 50mg po bid Lovenox 1mg/kg sub12 Crestor 5mg poqhs Lisinopril 5mg po daily F/U with cardiology regarding restarting of ACs Afib Dr. Talley consulted Aspirin 81mg po daily Lopressor 50mg po bid Thoracic aortic aneurysm without rupture U/S pending CT angio r/o PE (10/10/17): no evidence of pulmonary embolism. No acute abnormality. Mild aneurysmal dilatation of the ascending thoracic aorta. Echocardiogram (10/12/17): Ascending Aorta is moderately dilated at 4.4 cm, mild concentric left ventricular hypertrophy. left ventricular function is moderately to markedly reduced, with diffuse hypokinesis. Left ventricular ejection fraction is visually about 30% Mild aortic regurgitation is present. HFrEF (systolic dysfunction) EF=30% Fluid restriction (<1L) Lasix 40mg IV daily Crestor 5mg poqhs Lisinopril 5mg po dialy Lopressor 50mg po bid Plavix 75 mg po daily Aspirin 81mg po Hypertension BP 159-87 Continue lopressor 50mg po bid; lisinopril 5mg po daily; heart health diet Elevated D-dimer 10/15/17 Doppler Study- No DVT or superficial vein thromobosis CT angio r/o PE (10/10/17): no evidence of pulmonary embolism. No acute abnormality. Mild aneurysmal dilatation of the ascending thoracic aorta. Echocardiogram (10/12/17): Ascending Aorta is moderately dilated at 4.4 cm, mild concentric left ventricular hypertrophy. left ventricular function is moderately to markedly reduced, with diffuse hypokinesis. Left ventricular ejection fraction is visually about 30% Mild aortic regurgitation is present. Shortness of breath Duoneb 3 ml INH q4 joey Budenoside .5 mg INH q12 Diabetes Type 2 hgba1c: 6.8 Accuchecks Q6H Hypoglycemic protocol Prophylaxis Lovenox 1mg/subq 12hour Pepcid 20mg PO BID for GI ppx Fluid restriction <Ken Dominguez - Last Filed: 10/15/17 22:22> Objective - Vital Signs/Intake and Output Vital Signs (last 24 hours): Temp Pulse Resp BP Pulse Ox 98.6 F 89 20 159/87 H 98 10/15/17 11:05 10/15/17 11:05 10/15/17 11:05 10/15/17 11:05 10/15/17 11:05 - Medications Medications: Current Medications Acetaminophen (Tylenol 325mg Tab) 650 mg PO Q6 PRN PRN Reason: Pain, moderate (4-7) Last Admin: 10/15/17 17:54 Dose: 650 mg Albuterol/Ipratropium (Duoneb 3 Mg/0.5 Mg (3 Ml) Ud) 3 ml INH RQ4 [facility] Last Admin: 10/15/17 20:41 Dose: 3 ml Aspirin (Ecotrin) 81 mg PO DAILY [facility] Last Admin: 10/15/17 09:29 Dose: 81 mg Budesonide (Pulmicort Respules) 0.5 mg INH RQ12 [facility] Last Admin: 10/15/17 20:41 Dose: 0.5 mg Clopidogrel Bisulfate (Plavix) 75 mg PO DAILY [facility] Last Admin: 10/15/17 09:29 Dose: 75 mg Dextrose (Dextrose 50% Inj) 50 ml IVP ONCE PRN PRN Reason: Hypoglycemia Dextrose (Dextrose 50% Inj) 0 ml IV STAT PRN; Protocol PRN Reason: Hypoglycemia Protocol Dextrose (Glutose 15) 0 gm PO ONCE PRN; Protocol PRN Reason: Hypoglycemia Protocol Docusate Sodium (Colace) 100 mg PO TID [facility] Last Admin: 10/15/17 17:54 Dose: 100 mg Enoxaparin Sodium (Lovenox) 90 mg SC Q12 [facility] Last Admin: 10/15/17 22:00 Dose: 90 mg Furosemide (Lasix) 40 mg IVP DAILY [facility] Last Admin: 10/15/17 09:29 Dose: 40 mg Glucagon (Glucagen Diagnostic Kit) 0 mg IM STAT PRN; Protocol PRN Reason: Hypoglycemia Protocol Dextrose (Dextrose 5% In Water 1000 Ml) 1,000 mls @ 0 mls/hr IV .Q0M PRN; Protocol; Per Protocol PRN Reason: Hypoglycemia Protocol Sodium Chloride (Sodium Chloride 0.45%) 500 mls @ 50 mls/hr IV .Q10H [facility] Stop: 10/16/17 02:30 Last Admin: 10/15/17 16:00 Dose: 50 mls/hr Insulin Human Regular (Novolin R) 0 unit SC ACHS [facility] PRN Reason: Protocol Lisinopril (Zestril) 5 mg PO DAILY [facility] Last Admin: 10/15/17 09:29 Dose: 5 mg Metoprolol Tartrate (Lopressor) 50 mg PO BID [facility] Last Admin: 10/15/17 17:54 Dose: 50 mg Nicotine (Nicoderm Cq) 1 patch TD DAILY [facility] Last Admin: 10/15/17 09:29 Dose: 1 patch Rosuvastatin Calcium (Crestor) 5 mg PO HS [facility] Last Admin: 10/15/17 21:56 Dose: 5 mg - Labs Labs: 10/15/17 06:10 10/15/17 06:10 PT 13.8 SECONDS (9.7-12.2) H 10/15/17 06:10 INR 1.3 10/15/17 06:10 APTT 44 SECONDS (21-34) H D 10/15/17 06:10 Attending/Attestation - Attestation I have personally seen and examined this patient.: Yes I have fully participated in the care of the patient.: Yes I have reviewed all pertinent clinical information, including history, physical exam and plan: Yes Notes (Text): 10/15/17 22:14 Patient was seen and examined at 5:45 PM 10/15/17 665 B Exam, assessment and plan were gone over with the resident. F/U further recommendations from Cardiology Dr. Talley and arrangement of cardiac catheterization with stent as well as future anticoagulation switch from Lovenox to Eliquis (for the Atrial Fibrillation) as long as there is NO valvular abnormality on Echo. Continue the Metoprolol, Zestril, Crestor, ASA, Plavix for the CAD and HFrEF. NO CCB due to EF at 30%. Patient placed on Moderate RISS ACHS until she can be safely placed on Metformin once she is outside 48 hour window of any contrast administration. CT Angio Chest shows NO PE but did show aneurysmal dilatation of ascending thoracic aorta (4.4 cm as per Echo). F/U U/S Abdominal U/S. Ken Dominguez D.O.
--- NOTE | 2017-10-15 19:00 | CP.PCM.PN ---
Subjective - Date & Time of Evaluation Date of Evaluation: 10/15/17 Time of Evaluation: 18:56 - Subjective Subjective: Patient s/p Cardiac cath 1. L Main: Patent 2. LAD/Diags: Patent 3. L Cx/OM: Distal L Cx 95% stenosis 4. RCA: Mid 50% 5. Dilated Ascending Aorta, AAA Repeat Contrast ECHO to assess LV function and LV clot PCI of L CX on at [facility] abdomen to assess AAA Continue therapeutic Lovenox for paraxysmal A Fib OOB to ambulate IV hydration Objective - Vital Signs/Intake and Output Vital Signs (last 24 hours): Temp Pulse Resp BP Pulse Ox 98.6 F 89 20 159/87 H 98 10/15/17 11:05 10/15/17 11:05 10/15/17 11:05 10/15/17 11:05 10/15/17 11:05 - Medications Medications: Current Medications Acetaminophen (Tylenol 325mg Tab) 650 mg PO Q6 PRN PRN Reason: Pain, moderate (4-7) Last Admin: 10/15/17 17:54 Dose: 650 mg Albuterol/Ipratropium (Duoneb 3 Mg/0.5 Mg (3 Ml) Ud) 3 ml INH RQ4 [facility] Last Admin: 10/15/17 15:38 Dose: 3 ml Aspirin (Ecotrin) 81 mg PO DAILY [facility] Last Admin: 10/15/17 09:29 Dose: 81 mg Budesonide (Pulmicort Respules) 0.5 mg INH RQ12 [facility] Last Admin: 10/15/17 07:35 Dose: 0.5 mg Clopidogrel Bisulfate (Plavix) 75 mg PO DAILY [facility] Last Admin: 10/15/17 09:29 Dose: 75 mg Dextrose (Dextrose 50% Inj) 50 ml IVP ONCE PRN PRN Reason: Hypoglycemia Dextrose (Dextrose 50% Inj) 0 ml IV STAT PRN; Protocol PRN Reason: Hypoglycemia Protocol Dextrose (Glutose 15) 0 gm PO ONCE PRN; Protocol PRN Reason: Hypoglycemia Protocol Docusate Sodium (Colace) 100 mg PO TID [facility] Last Admin: 10/15/17 17:54 Dose: 100 mg Enoxaparin Sodium (Lovenox) 90 mg SC Q12 [facility] Furosemide (Lasix) 40 mg IVP DAILY [facility] Last Admin: 10/15/17 09:29 Dose: 40 mg Glucagon (Glucagen Diagnostic Kit) 0 mg IM STAT PRN; Protocol PRN Reason: Hypoglycemia Protocol Dextrose (Dextrose 5% In Water 1000 Ml) 1,000 mls @ 0 mls/hr IV .Q0M PRN; Protocol; Per Protocol PRN Reason: Hypoglycemia Protocol Sodium Chloride (Sodium Chloride 0.45%) 500 mls @ 50 mls/hr IV .Q10H [facility] Stop: 10/16/17 02:30 Last Admin: 10/15/17 16:00 Dose: 50 mls/hr Lisinopril (Zestril) 5 mg PO DAILY [facility] Last Admin: 10/15/17 09:29 Dose: 5 mg Metoprolol Tartrate (Lopressor) 50 mg PO BID [facility] Last Admin: 10/15/17 17:54 Dose: 50 mg Nicotine (Nicoderm Cq) 1 patch TD DAILY [facility] Last Admin: 10/15/17 09:29 Dose: 1 patch Rosuvastatin Calcium (Crestor) 5 mg PO HS [facility] Last Admin: 10/14/17 21:54 Dose: 5 mg - Labs Labs: 10/15/17 06:10 10/15/17 06:10 PT 13.8 SECONDS (9.7-12.2) H 10/15/17 06:10 INR 1.3 10/15/17 06:10 APTT 44 SECONDS (21-34) H D 10/15/17 06:10
[2017-10-15] MEDS ORDERED: Enoxaparin 80 mg Syringe SC SCH (22:00)
[2017-10-16] MEDS: Albuterol-Ipratrop 3 mg / 0.5 (3 ml) UD INH SCH ×7 (00:33→23:51)
[2017-10-16] MEDS: Budesonide 0.5 mg/2 ml Inhal Susp UD INH SCH ×2 (07:40→20:33)
[2017-10-16 08:15] LABS: BASO % 0.4 % (0.0-2.0); EOS # 0.1 K/uL (0.0-0.7); EOS % 0.9 % (0.0-4.0); LYMPH % 20.7 % (20.0-40.0); MEAN CELL VOLUME 87.6 fL (81.0-99.0); MEAN CORPUSCULAR HEMOGLOBIN 29.3 pg (27.0-31.0); MEAN CORPUSCULAR HGB CONC 33.4 g/dL (33.0-37.0); MEAN PLATELET VOLUME 7.6 fL (7.2-11.7); MONO # 0.6 K/uL (0.0-0.8); MONO % 6.5 % (0.0-10.0); NEUT % 71.5 % (50.0-75.0); RBC 4.1 Mil/uL (3.80-5.20); RED CELL DISTRIBUTION WIDTH 14.3 % (11.5-14.5); WHITE BLOOD COUNT 9.8 K/uL (4.8-10.8)
[2017-10-16] MEDS: (Novolin R) Insulin Human Regular 100 units/ml vial SC SCH ×3 (08:15→17:42)
--- NOTE | 2017-10-16 08:27 | CP.PCM.PN ---
<Guy Simons - Last Filed: 10/16/17 14:40> Subjective - Date & Time of Evaluation Date of Evaluation: 10/16/17 Time of Evaluation: 11:23 - Subjective Subjective: medicine note for Dr Schmidt Pt seen and examined at bedside, laying in bed anxious. Pt reports mild residual chest pain in the left 4-5th rib sternal junction area. She reports fatigue. Pt states her status has improved greatly since presentation in ED. Pt denies any SOB, cough, loss of conscience, dizziness, palpitations, leg pains or pain on inspiration, N/v, F/C. Objective - Vital Signs/Intake and Output Vital Signs (last 24 hours): Temp Pulse Resp BP Pulse Ox 98.4 F 108 H 18 108/70 96 10/16/17 07:45 10/16/17 07:45 10/16/17 07:45 10/16/17 07:45 10/16/17 07:45 Intake and Output: 10/16/17 10/16/17 06:59 18:59 Intake Total 300 Balance 300 - Medications Medications: Current Medications Acetaminophen (Tylenol 325mg Tab) 650 mg PO Q6 PRN PRN Reason: Pain, moderate (4-7) Last Admin: 10/15/17 17:54 Dose: 650 mg Albuterol/Ipratropium (Duoneb 3 Mg/0.5 Mg (3 Ml) Ud) 3 ml INH RQ4 [facility] Last Admin: 10/16/17 03:13 Dose: Not Given Aspirin (Ecotrin) 81 mg PO DAILY [facility] Last Admin: 10/15/17 09:29 Dose: 81 mg Budesonide (Pulmicort Respules) 0.5 mg INH RQ12 [facility] Last Admin: 10/15/17 20:41 Dose: 0.5 mg Clopidogrel Bisulfate (Plavix) 75 mg PO DAILY [facility] Last Admin: 10/15/17 09:29 Dose: 75 mg Dextrose (Dextrose 50% Inj) 50 ml IVP ONCE PRN PRN Reason: Hypoglycemia Dextrose (Dextrose 50% Inj) 0 ml IV STAT PRN; Protocol PRN Reason: Hypoglycemia Protocol Dextrose (Glutose 15) 0 gm PO ONCE PRN; Protocol PRN Reason: Hypoglycemia Protocol Docusate Sodium (Colace) 100 mg PO TID [facility] Last Admin: 10/15/17 17:54 Dose: 100 mg Enoxaparin Sodium (Lovenox) 90 mg SC Q12 [facility] Last Admin: 10/15/17 22:00 Dose: 90 mg Furosemide (Lasix) 40 mg IVP DAILY [facility] Last Admin: 10/15/17 09:29 Dose: 40 mg Glucagon (Glucagen Diagnostic Kit) 0 mg IM STAT PRN; Protocol PRN Reason: Hypoglycemia Protocol Dextrose (Dextrose 5% In Water 1000 Ml) 1,000 mls @ 0 mls/hr IV .Q0M PRN; Protocol; Per Protocol PRN Reason: Hypoglycemia Protocol Insulin Human Regular (Novolin R) 0 unit SC ACHS [facility] PRN Reason: Protocol Lisinopril (Zestril) 5 mg PO DAILY [facility] Last Admin: 10/15/17 09:29 Dose: 5 mg Metoprolol Tartrate (Lopressor) 50 mg PO BID [facility] Last Admin: 10/15/17 17:54 Dose: 50 mg Nicotine (Nicoderm Cq) 1 patch TD DAILY [facility] Last Admin: 10/15/17 09:29 Dose: 1 patch Rosuvastatin Calcium (Crestor) 5 mg PO HS [facility] Last Admin: 10/15/17 21:56 Dose: 5 mg - Labs Labs: 10/16/17 08:08 10/15/17 06:10 PT 13.8 SECONDS (9.7-12.2) H 10/15/17 06:10 INR 1.3 10/15/17 06:10 APTT 44 SECONDS (21-34) H D 10/15/17 06:10 - Constitutional Appears: Well, Non-toxic, In Acute Distress - Head Exam Head Exam: ATRAUMATIC, NORMAL INSPECTION - Eye Exam Eye Exam: EOMI, Normal appearance. absent: Periorbital swelling, Scleral icterus - ENT Exam ENT Exam: Mucous Membranes Moist, Normal Exam - Respiratory Exam Respiratory Exam: Wheezes (bilaterally in all sampson). absent: Accessory Muscle Use, Chest Wall Tenderness - Cardiovascular Exam Cardiovascular Exam: RRR, +S1, +S2. absent: Murmur - GI/Abdominal Exam GI & Abdominal Exam: Soft, Normal Bowel Sounds. absent: Rigid, Tenderness - Extremities Exam Extremities Exam: absent: Calf Tenderness, Joint Swelling, Pedal Edema - Back Exam Back Exam: NORMAL INSPECTION, tenderness Additional comments: right upper thoracic sub scapular tenderness - Neurological Exam Neurological Exam: Alert, Awake, CN II-XII Intact, Oriented x3 Neuro motor strength exam: Left Upper Extremity: 5, Right Upper Extremity: 5, Left Lower Extremity: 5, Right Lower Extremity: 5 - Psychiatric Exam Psychiatric exam: Anxious, Normal Affect - Skin Skin Exam: Intact, Warm Assessment and Plan - Assessment and Plan (Free Text) Assessment: 66yo female with a PMH of HTN and COPD admitted for A-fib and an NSTEMI, s/p cath(10/15) 1 day. Pt is pending PCI Plan: Paroxysmal Atrial fibrillation with RVR now NSR -Improved -Lovenox 90mg q12 -ASA 81mg PO daily -Plavix 75mg PO daily -Lopressor 50mg PO BID -CHADSVASC: 4, HASBLED: 1 -Cardio consulted: Dr Talley -Echo (10/12/17): Ascending Aorta 4.4 cm dilation, LVH. 30% Mild aortic regurgitation is present. -CT angio r/o PE (10/10/17): Neg PE. Mild aneurysmal dilatation of the ascending thoracic aorta. -Cath done 10/15 results: L circumflex block Non-STEMI (non-ST elevated myocardial infarction) -Lovenox 90mg sc q12 -Aspirin 81mg PO daily -Start Lisinopril 5mg PO daily -Lopressor PO 50mg BID -Echo (10/12/17): Ascending Aorta 4.4 cm dilation, LVH. 30% Mild aortic regurgitation is present. -CT angio r/o PE (10/10/17): No PE. Mild aneurysmal dilatation of the ascending thoracic aorta. -trop 10/13 : .24 -trigly: 120, chol: 145, LDL: 83, HDL:26, TSH:1.06 -Cath done 10/15: results- Left Circumflex blockage Aortic Arch Aneurysm -Echo (10/12/17): Ascending Aorta 4.4 cm dilation, LVH. 30% Mild aortic regurgitation is present. -CT angio r/o PE (10/10/17): No PE. Mild aneurysmal dilatation of the ascending thoracic aorta. -Cath 10/15: Left Circumflex Blockage -BP control Systolic Heart Failure -Cardiology (Dr. Talley): help appreciated -BNP 10/12: 952 -Aspirin 81mg PO daily -Plavix 75mg PO daily -Lopressor 50mg PO BID -Lisinopril 5mg PO daily -Crestor 5mg PO HS -Fluid restriction (1200ML) -Record intake and outputs Hypertension -Monitor BP, HR -Lopressor 50mg PO BID -Lisinopril 5mg PO daily Elevated d-dimer -Doppler: neg -Echo (10/12/17): Ascending Aorta 4.4 cm dilation, LVH. 30% Mild aortic regurgitation is present. -CT angio r/o PE (10/10/17): No PE. Mild aneurysmal dilatation of the ascending thoracic aorta. Leg pain, bilateral -f/u venous doppler: r/o dvt -elevated d-dimer -Wells's criteria: 1: moderate risk -risk factor: recent plane ride (3 hours), obesity Shortness of breath -Duonebs RQ4 PRM -Budenoside 0.5mg Rq12 -O2 nasal cannula PPX -Lovenox 1mg/subq 12hour -ASA 81mg Po daily -Plavix 75mg PO daily -Fluid restriction -Intake and output -Pepcid 20mg PO BID for GI ppx disposition: s/p cath yesterday, L circumflex block, pt pending PCI <Willow Schmidt V - Last Filed: 10/16/17 21:15> Objective - Vital Signs/Intake and Output Vital Signs (last 24 hours): Temp Pulse Resp BP Pulse Ox 98.7 F 111 H 22 113/79 95 10/16/17 17:53 10/16/17 15:47 10/16/17 15:47 10/16/17 15:47 10/16/17 15:47 - Medications Medications: Current Medications Acetaminophen (Tylenol 325mg Tab) 650 mg PO Q6 PRN PRN Reason: Pain, moderate (4-7) Last Admin: 10/16/17 16:53 Dose: 650 mg Albuterol/Ipratropium (Duoneb 3 Mg/0.5 Mg (3 Ml) Ud) 3 ml INH RQ4 [facility] Last Admin: 10/16/17 20:33 Dose: 3 ml Aspirin (Ecotrin) 81 mg PO DAILY [facility] Last Admin: 10/16/17 10:21 Dose: 81 mg Budesonide (Pulmicort Respules) 0.5 mg INH RQ12 [facility] Last Admin: 10/16/17 20:33 Dose: 0.5 mg Clopidogrel Bisulfate (Plavix) 75 mg PO DAILY [facility] Last Admin: 10/16/17 10:21 Dose: 75 mg Dextrose (Dextrose 50% Inj) 50 ml IVP ONCE PRN PRN Reason: Hypoglycemia Dextrose (Dextrose 50% Inj) 0 ml IV STAT PRN; Protocol PRN Reason: Hypoglycemia Protocol Dextrose (Glutose 15) 0 gm PO ONCE PRN; Protocol PRN Reason: Hypoglycemia Protocol Docusate Sodium (Colace) 100 mg PO TID [facility] Last Admin: 10/16/17 17:05 Dose: 100 mg Enoxaparin Sodium (Lovenox) 90 mg SC Q12 [facility] Furosemide (Lasix) 40 mg IVP DAILY [facility] Last Admin: 10/16/17 10:20 Dose: 40 mg Glucagon (Glucagen Diagnostic Kit) 0 mg IM STAT PRN; Protocol PRN Reason: Hypoglycemia Protocol Dextrose (Dextrose 5% In Water 1000 Ml) 1,000 mls @ 0 mls/hr IV .Q0M PRN; Protocol; Per Protocol PRN Reason: Hypoglycemia Protocol Sodium Chloride (Sodium Chloride 0.45%) 1,000 mls @ 50 mls/hr IV .Q20H [facility] Last Admin: 10/16/17 17:54 Dose: 50 mls/hr Insulin Human Regular (Novolin R) 0 unit SC ACHS [facility] PRN Reason: Protocol Last Admin: 10/16/17 17:42 Dose: Not Given Lisinopril (Zestril) 5 mg PO DAILY [facility] Last Admin: 10/16/17 10:21 Dose: 5 mg Metoprolol Tartrate (Lopressor) 50 mg PO BID [facility] Last Admin: 10/16/17 17:05 Dose: 50 mg Nicotine (Nicoderm Cq) 1 patch TD DAILY [facility] Last Admin: 10/16/17 10:22 Dose: 1 patch Rosuvastatin Calcium (Crestor) 5 mg PO HS [facility] Last Admin: 10/15/17 21:56 Dose: 5 mg - Labs Labs: 10/16/17 08:08 10/16/17 08:08 PT 13.8 SECONDS (9.7-12.2) H 10/15/17 06:10 INR 1.3 10/15/17 06:10 APTT 44 SECONDS (21-34) H D 10/15/17 06:10 Assessment and Plan (1) Atrial fibrillation with RVR Status: Acute (2) Non-STEMI (non-ST elevated myocardial infarction) Status: Acute (3) Thoracic aortic aneurysm without rupture Status: Chronic (4) Systolic heart failure Status: Acute (5) Hypertension Status: Chronic (6) Elevated d-dimer Status: Acute (7) Leg pain, bilateral Status: Acute (8) Shortness of breath Status: Acute (9) Prophylactic measure Status: Acute Attending/Attestation - Attestation I have personally seen and examined this patient.: Yes I have fully participated in the care of the patient.: Yes I have reviewed all pertinent clinical information, including history, physical exam and plan: Yes Notes (Text): Patient underwent diagnostic catherization yesterday with Dr. Talley. She has completed Aortic US this AM. Patient is scheduled for PCI of left circumflex tomorrow at [facility] at 6:30PM. Patient to receive therapuetic lovenox tonight and to hold AM dose per cardiology. Patient's contrast echo is pending official result. Concern for clot in the LV during cath. I spoke to patient's daughter, Kirsten Medrano ([phone]) explained to her mother's current hospitalization up to this point per request of patient and I have provided the number for further questions from Dr. Talley as requested. Patient does not have any wheezing on exam today. Assessment and Plan (1) Atrial fibrillation with RVR Paroxysmal Atrial Fibrillation Possible LV Clot Assessment & Plan: * Cardiology (Dr. Talley) on consult-->help appreciated * New onset * CHADSVASC: 4 (age, sex, chf, htn) * HASBLED: 1 (Age) * Echocardiogram (10/12/17): Ascending Aorta is moderately dilated at 4.4 cm, mild concentric left ventricular hypertrophy. left ventricular function is moderately to markedly reduced, with diffuse hypokinesis. Left ventricular ejection fraction is visually about 30% Mild aortic regurgitation is present. * CT angio r/o PE (10/10/17): no evidence of pulmonary embolism. No acute abnormality. Mild aneurysmal dilatation of the ascending thoracic aorta. * Lovenox 1mg/sub [id number] (Lovenox 90mg subq Q12H) * To hold AM 10/16/17 dose * Patient going to PCI for left circumflex at [facility] on 10/16/17. * Aspirin 81mg PO daily * c/w Lopressor 50mg PO BID * Patient s/p Cardiac cath (10/15/17) * 1. L Main: Patent * 2. LAD/Diags: Patent * 3. L Cx/OM: Distal L Cx 95% stenosis * 4. RCA: Mid 50% * 5. Dilated Ascending Aorta, AAA * Repeat Contrast ECHO to assess LV function and LV clot--->pending official report * PCI of L CX on at [facility] 10/16/17 * US abdomen to assess AAA * Continue therapeutic Lovenox for paraxysmal A Fib * OOB to ambulate * IV hydration Status: Acute (2) Non-STEMI (non-ST elevated myocardial infarction) Coronary Artery Disease Assessment & Plan: * Cardiology (Dr. Talley) on board-->help appreciated * Echocardiogram (10/12/17): Ascending Aorta is moderately dilated at 4.4 cm, mild concentric left ventricular hypertrophy. left ventricular function is moderately to markedly reduced, with diffuse hypokinesis. Left ventricular ejection fraction is visually about 30% Mild aortic regurgitation is present. * CT angio r/o PE (10/10/17): no evidence of pulmonary embolism. No acute abnormality. Mild aneurysmal dilatation of the ascending thoracic aorta. * Patient has positive troponin overnight, which is downtrending. * Therapeutic Lovenox 1mg/kg sub12 for atrial fibrillation and nonstemi * Aspirin 81mg PO daily * c/w Lisinopril 5mg PO daily * c/w Lopressor 50mg PO BID * c/w Crestor 5mg POqHS * Patient s/p Cardiac cath (10/15/17) * 1. L Main: Patent * 2. LAD/Diags: Patent * 3. L Cx/OM: Distal L Cx 95% stenosis * 4. RCA: Mid 50% * 5. Dilated Ascending Aorta, AAA * Repeat Contrast ECHO to assess LV function and LV clot--->pending official report * PCI of L CX on at [facility] 10/16/17 * US abdomen to assess AAA * Continue therapeutic Lovenox for paraxysmal A Fib * OOB to ambulate * IV hydration Status: Acute (3) Systolic heart failure, new onset possible ischemic cardiomyopathy? Assessment & Plan: * Cardiology (Dr. Talley) on case-->help appreciated * New onset * Acute exacerbation * Systolic Dysfunction * elevated proBNP * Echocardiogram (10/12/17): Ascending Aorta is moderately dilated at 4.4 cm, mild concentric left ventricular hypertrophy. left ventricular function is moderately to markedly reduced, with diffuse hypokinesis. Left ventricular ejection fraction is visually about 30%. Mild aortic regurgitation is present * CT angio r/o PE (10/10/17): no evidence of pulmonary embolism. No acute abnormality. Mild aneurysmal dilatation of the ascending thoracic aorta. * Aspirin 81mg PO daily * start Plavix 75mg PO daily * c/w Lopressor 50mg PO BID * c/w Lisinopril 5mg PO daily * c/w Lasix 40mg IV qdaily * c/w Crestor 5mg POqHS * Fluid restriction (1200ML) * Patient s/p Cardiac cath (10/15/17) * 1. L Main: Patent * 2. LAD/Diags: Patent * 3. L Cx/OM: Distal L Cx 95% stenosis * 4. RCA: Mid 50% * 5. Dilated Ascending Aorta, AAA * Repeat Contrast ECHO to assess LV function and LV clot--->pending official report * PCI of L CX on at [facility] 10/16/17 * US abdomen to assess AAA * Continue therapeutic Lovenox for paraxysmal A Fib * OOB to ambulate * IV hydration Status: Acute (4) Thoracic aortic aneurysm without rupture Assessment & Plan: * CT angio r/o PE (10/10/17): no evidence of pulmonary embolism. No acute abnormality. Mild aneurysmal dilatation of the ascending thoracic aorta. * Echocardiogram (10/12/17): Ascending Aorta is moderately dilated at 4.4 cm, mild concentric left ventricular hypertrophy. left ventricular function is moderately to markedly reduced, with diffuse hypokinesis. Left ventricular ejection fraction is visually about 30% Mild aortic regurgitation is present. * Aorta US (10/16/17): mild descending abdominal aortic aneurysm measuring 4.3 X.6.1Cm as detailed above. Status: Chronic (5) Hypertension Assessment & Plan: * Monitor vital signs * c/w Lopressor 50mg PO BID * c/w Lisinopril 5mg PO daily * Heart health, 2gm diet Status: Chronic (6) Elevated d-dimer Assessment & Plan: * Dopplers negative for DVT * CT angio r/o PE (10/10/17): no evidence of pulmonary embolism. No acute abnormality. Mild aneurysmal dilatation of the ascending thoracic aorta. Minor findings as above. * On therapuetic Lovenox for atrial fibrillation * Echocardiogram (10/12/17): Ascending Aorta is moderately dilated at 4.4 cm, mild concentric left ventricular hypertrophy. left ventricular function is moderately to markedly reduced, with diffuse hypokinesis. Left ventricular ejection fraction is visually about 30% Status: Acute (7) Leg pain, bilateral Assessment & Plan: * Venous doppler: negative for DVT * elevated d-dimer * Wells's criteria: 1: moderate risk * risk factor: recent plane ride (3 hours), obesity Status: Acute (8) Shortness of breath Assessment & Plan: * Dr. Woodson (pulm) on board-->help appreciated * Patient has not formerly seen a support technician * she reports she feels short of breathe, reports she thinks she has had asthma , has not had PFTs as outpatient * Patient has had recent travel from [place], 3 hour plane ride * CT angio r/o PE (10/10/17): no evidence of pulmonary embolism. No acute abnormality. Mild aneurysmal dilatation of the ascending thoracic aorta. * Echocardiogram (10/12/17): Ascending Aorta is moderately dilated at 4.4 cm, mild concentric left ventricular hypertrophy. left ventricular function is moderately to markedly reduced, with diffuse hypokinesis. Left ventricular ejection fraction is visually about 30% * Counselled against smoking * Budesonide 0.5mg INH RQ12H * Duoneb 3ml INH RQ4H Status: Acute (9) Current smoker Assessment & Plan: * Counselled at bedside against side effects of smoking; predominant family history * Will start Nicotine patch (10) Constipation Assessment & Plan: * Monitor for bowel movement * Colace 100mg PO TID (11) Diabetes, new onset Assessment/Plan * hgba1c: 6.8 * Accuchecks Q6H * Hypoglycemic protocol * adaptive physical educator referral * Safe Deposit Attendant referral * Patient is on leida-inhibitor * Patient is on a statin * Patient is on Aspirin as a cardioprotective agent (12) Prophylactic measure Assessment & Plan: * Lovenox 1mg/subq 12hour * To hold AM dose 10/16/17 * Fluid restriction * Intake and output * Kirsten Medrano ([phone]) * 1/2 NS 50cc/hr * PMD: [email or web address] Status: Acute Disposition: Patient is going for cardiac cath tomorrow at 6:30AM for left circumflex coronary artery lesion. Follow. contrast echo for possible LV clot. I have spoken with patient's daughter as requested by the patient and as well as provided number to the immigration officer as well for any further questions. Patient is on gentle iV hydration for cath in AM.
[2017-10-16 08:36] LABS: ALBUMIN 3.6 g/dL (3.5-5.0); ALT/SGPT 25 U/L (9-52); AST/SGOT 22 U/L (14-36); BLOOD UREA NITROGEN 16 mg/dL (7-17); GFR AFRICAN-AMERICAN > 60; GFR NON-AFRICAN AMERICAN > 60
[2017-10-16] MEDS ORDERED: Perflutren Lipid Microsphere 1.5 ML SUS IV ONE (09:50)
--- NOTE | 2017-10-16 10:30 | CP.PCM.PN ---
<Ria Hernández - Last Filed: 10/16/17 17:36> Subjective - Date & Time of Evaluation Date of Evaluation: 10/16/17 Time of Evaluation: 10:27 - Subjective Subjective: Cardiology Progress Note - Dr Talley Patient seen and examined at bedside. Patient is s/p Cardiac cath which showed L CX disease. Patient to be transferred to [facility] tomorrow morning for PCI. Patient is anxious, she feels short of breath with occasional palpitations but improving. Denies any chest pain. Objective - Vital Signs/Intake and Output Vital Signs (last 24 hours): Temp Pulse Resp BP Pulse Ox 98.4 F 108 H 18 108/70 96 10/16/17 07:45 10/16/17 07:45 10/16/17 07:45 10/16/17 10:20 10/16/17 07:45 Intake and Output: 10/16/17 10/16/17 06:59 18:59 Intake Total 300 Balance 300 - Medications Medications: Current Medications Acetaminophen (Tylenol 325mg Tab) 650 mg PO Q6 PRN PRN Reason: Pain, moderate (4-7) Last Admin: 10/15/17 17:54 Dose: 650 mg Albuterol/Ipratropium (Duoneb 3 Mg/0.5 Mg (3 Ml) Ud) 3 ml INH RQ4 [facility] Last Admin: 10/16/17 07:40 Dose: 3 ml Aspirin (Ecotrin) 81 mg PO DAILY [facility] Last Admin: 10/16/17 10:21 Dose: 81 mg Budesonide (Pulmicort Respules) 0.5 mg INH RQ12 [facility] Last Admin: 10/16/17 07:40 Dose: 0.5 mg Clopidogrel Bisulfate (Plavix) 75 mg PO DAILY [facility] Last Admin: 10/16/17 10:21 Dose: 75 mg Dextrose (Dextrose 50% Inj) 50 ml IVP ONCE PRN PRN Reason: Hypoglycemia Dextrose (Dextrose 50% Inj) 0 ml IV STAT PRN; Protocol PRN Reason: Hypoglycemia Protocol Dextrose (Glutose 15) 0 gm PO ONCE PRN; Protocol PRN Reason: Hypoglycemia Protocol Docusate Sodium (Colace) 100 mg PO TID [facility] Last Admin: 10/16/17 10:21 Dose: 100 mg Enoxaparin Sodium (Lovenox) 90 mg SC Q12 [facility] Last Admin: 10/15/17 22:00 Dose: 90 mg Furosemide (Lasix) 40 mg IVP DAILY [facility] Last Admin: 10/16/17 10:20 Dose: 40 mg Glucagon (Glucagen Diagnostic Kit) 0 mg IM STAT PRN; Protocol PRN Reason: Hypoglycemia Protocol Dextrose (Dextrose 5% In Water 1000 Ml) 1,000 mls @ 0 mls/hr IV .Q0M PRN; Protocol; Per Protocol PRN Reason: Hypoglycemia Protocol Insulin Human Regular (Novolin R) 0 unit SC ACHS [facility] PRN Reason: Protocol Last Admin: 10/16/17 08:15 Dose: Not Given Lisinopril (Zestril) 5 mg PO DAILY [facility] Last Admin: 10/16/17 10:21 Dose: 5 mg Metoprolol Tartrate (Lopressor) 50 mg PO BID [facility] Last Admin: 10/16/17 10:21 Dose: 50 mg Nicotine (Nicoderm Cq) 1 patch TD DAILY [facility] Last Admin: 10/16/17 10:22 Dose: 1 patch Rosuvastatin Calcium (Crestor) 5 mg PO HS [facility] Last Admin: 10/15/17 21:56 Dose: 5 mg - Labs Labs: 10/16/17 08:08 10/16/17 08:08 PT 13.8 SECONDS (9.7-12.2) H 10/15/17 06:10 INR 1.3 10/15/17 06:10 APTT 44 SECONDS (21-34) H D 10/15/17 06:10 - Constitutional Appears: Well, No Acute Distress - Head Exam Head Exam: ATRAUMATIC, NORMAL INSPECTION, NORMOCEPHALIC - Eye Exam Eye Exam: EOMI, Normal appearance - ENT Exam ENT Exam: Mucous Membranes Moist - Neck Exam Neck Exam: Full ROM - Respiratory Exam Respiratory Exam: Wheezes. absent: Accessory Muscle Use, Rales, Rhonchi - Cardiovascular Exam Cardiovascular Exam: Irregular Rhythm, +S1, +S2 - GI/Abdominal Exam GI & Abdominal Exam: Soft. absent: Guarding, Rigid, Tenderness - Extremities Exam Extremities Exam: absent: Calf Tenderness Additional comments: +mild edema bilaterally - Neurological Exam Neurological Exam: Alert, Awake, Oriented x3 - Psychiatric Exam Psychiatric exam: Anxious (Tearful), Normal Mood - Skin Skin Exam: Dry, Normal Color, Warm Assessment and Plan - Assessment and Plan (Free Text) Assessment: A/P: Patient is a 66 year old female with past medical history significant for HTN and newly diagnosed DM presented with complaints of shortness of breath and palpitations over the course of the past few days. NSTEMI -S/P Cardiac catherization that showed L Main: Patent, LAD/Diags: Patent, L Cx/ OM: Distal L Cx 95% stenosis, RCA: Mid 50% -Patient to be transferred to [facility] tomorrow for PCI of L Cx -Patient to return to [facility] after the procedure -Will hold AM dose of Lovenox -Continue ASA 81mg PO daily and Plavix 75mg PO daily -Continue Crestor 5mg PO HS -Continue Heart healthy diet -NPO after midnight except medications for procedure Afib with RVR -Monitor on telemetry -Continue Lovenox 90mg Q12 [facility] (will hold AM dose of Lovenox) -Continue Lopressor 50mg PO BID Possible LV Clot -Possible LV clot seen on Echocardiogram -Repeat Contrast ECHO ordered to assess LV function and LV clot Dilated Ascending Aorta, AAA -Aortic US showed mild descending abdominal aortic aneurysm 4.3 x 6.1cm -Chest CT performed on 10/10- mildly dilated ascending thoracic aorta of 4.2 cm, arch of aorta and descending aorta within normal dimension parameters. minimal scar atelectasis noted in the lingula and right middle lobe. No infiltrate or pulmonary mass noted. 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 Hypertension -Lopressor 50mg PO BID -Lisinopril 5mg PO daily Plan discussed with Dr Mayank Hernández DO PGY-2 <Scooby Talley - Last Filed: 10/16/17 21:31> Objective - Vital Signs/Intake and Output Vital Signs (last 24 hours): Temp Pulse Resp BP Pulse Ox 98.7 F 111 H 22 113/79 95 10/16/17 17:53 10/16/17 15:47 10/16/17 15:47 10/16/17 15:47 10/16/17 15:47 - Medications Medications: Current Medications Acetaminophen (Tylenol 325mg Tab) 650 mg PO Q6 PRN PRN Reason: Pain, moderate (4-7) Last Admin: 10/16/17 16:53 Dose: 650 mg Albuterol/Ipratropium (Duoneb 3 Mg/0.5 Mg (3 Ml) Ud) 3 ml INH RQ4 [facility] Last Admin: 10/16/17 20:33 Dose: 3 ml Aspirin (Ecotrin) 81 mg PO DAILY [facility] Last Admin: 10/16/17 10:21 Dose: 81 mg Budesonide (Pulmicort Respules) 0.5 mg INH RQ12 [facility] Last Admin: 10/16/17 20:33 Dose: 0.5 mg Clopidogrel Bisulfate (Plavix) 75 mg PO DAILY [facility] Last Admin: 10/16/17 10:21 Dose: 75 mg Dextrose (Dextrose 50% Inj) 50 ml IVP ONCE PRN PRN Reason: Hypoglycemia Dextrose (Dextrose 50% Inj) 0 ml IV STAT PRN; Protocol PRN Reason: Hypoglycemia Protocol Dextrose (Glutose 15) 0 gm PO ONCE PRN; Protocol PRN Reason: Hypoglycemia Protocol Docusate Sodium (Colace) 100 mg PO TID [facility] Last Admin: 10/16/17 17:05 Dose: 100 mg Enoxaparin Sodium (Lovenox) 90 mg SC Q12 [facility] Furosemide (Lasix) 40 mg IVP DAILY [facility] Last Admin: 10/16/17 10:20 Dose: 40 mg Glucagon (Glucagen Diagnostic Kit) 0 mg IM STAT PRN; Protocol PRN Reason: Hypoglycemia Protocol Dextrose (Dextrose 5% In Water 1000 Ml) 1,000 mls @ 0 mls/hr IV .Q0M PRN; Protocol; Per Protocol PRN Reason: Hypoglycemia Protocol Sodium Chloride (Sodium Chloride 0.45%) 1,000 mls @ 50 mls/hr IV .Q20H [facility] Last Admin: 10/16/17 17:54 Dose: 50 mls/hr Insulin Human Regular (Novolin R) 0 unit SC ACHS [facility] PRN Reason: Protocol Last Admin: 10/16/17 17:42 Dose: Not Given Lisinopril (Zestril) 5 mg PO DAILY [facility] Last Admin: 10/16/17 10:21 Dose: 5 mg Metoprolol Tartrate (Lopressor) 50 mg PO BID [facility] Last Admin: 10/16/17 17:05 Dose: 50 mg Nicotine (Nicoderm Cq) 1 patch TD DAILY [facility] Last Admin: 10/16/17 10:22 Dose: 1 patch Rosuvastatin Calcium (Crestor) 5 mg PO HS [facility] Last Admin: 10/15/17 21:56 Dose: 5 mg - Labs Labs: 10/16/17 08:08 10/16/17 08:08 PT 13.8 SECONDS (9.7-12.2) H 10/15/17 06:10 INR 1.3 10/15/17 06:10 APTT 44 SECONDS (21-34) H D 10/15/17 06:10 Assessment and Plan - Assessment and Plan (Free Text) Assessment: Patient seen and evaluated pesronally by me. Plan of care d/w the medical staff credentialing coordinator and as documented
--- NOTE | 2017-10-16 13:41 | US ---
Date of service: 10/15/2017 PROCEDURE: HISTORY: To evaluate size of AAA COMPARISON: None TECHNIQUE: Normal standard protocol FINDINGS: Proximal aorta - 2.3 cm AP dimension on sagittal image Mid aorta - 4.3 cm 8 P length estimated 6.2 cm per sagittal image plane available ; transverse width 6.1 cm. Doppler flow shows turbulence and patency The distal abdominal aortic segment is estimated to be 1.6 cm The bifurcation areas not clearly labeled are possible top-normal common iliac arterial caliber here is question. At the 1.5 cm each side. IMPRESSION: Mid descending abdominal aortic aneurysm measuring 4.3 x 6.1 cm as detailed above. Comments: Patient in cardiac catheterization at 2:30 p.m..
--- NOTE | 2017-10-16 15:34 | CP.PCM.PN ---
Subjective - Date & Time of Evaluation Date of Evaluation: 10/16/17 Time of Evaluation: 11:00 - Subjective Subjective: patient seen and examined Status post cardiac cath Cough and shortness of breath improving No chest pain Afebrile Objective - Vital Signs/Intake and Output Vital Signs (last 24 hours): Temp Pulse Resp BP Pulse Ox 98.4 F 108 H 18 108/70 96 10/16/17 07:45 10/16/17 09:00 10/16/17 07:45 10/16/17 10:20 10/16/17 07:45 Intake and Output: 10/16/17 10/16/17 06:59 18:59 Intake Total 300 Balance 300 - Medications Medications: Current Medications Acetaminophen (Tylenol 325mg Tab) 650 mg PO Q6 PRN PRN Reason: Pain, moderate (4-7) Last Admin: 10/15/17 17:54 Dose: 650 mg Albuterol/Ipratropium (Duoneb 3 Mg/0.5 Mg (3 Ml) Ud) 3 ml INH RQ4 [facility] Last Admin: 10/16/17 13:45 Dose: 3 ml Aspirin (Ecotrin) 81 mg PO DAILY [facility] Last Admin: 10/16/17 10:21 Dose: 81 mg Budesonide (Pulmicort Respules) 0.5 mg INH RQ12 [facility] Last Admin: 10/16/17 07:40 Dose: 0.5 mg Clopidogrel Bisulfate (Plavix) 75 mg PO DAILY [facility] Last Admin: 10/16/17 10:21 Dose: 75 mg Dextrose (Dextrose 50% Inj) 50 ml IVP ONCE PRN PRN Reason: Hypoglycemia Dextrose (Dextrose 50% Inj) 0 ml IV STAT PRN; Protocol PRN Reason: Hypoglycemia Protocol Dextrose (Glutose 15) 0 gm PO ONCE PRN; Protocol PRN Reason: Hypoglycemia Protocol Docusate Sodium (Colace) 100 mg PO TID [facility] Last Admin: 10/16/17 14:48 Dose: 100 mg Enoxaparin Sodium (Lovenox) 90 mg SC Q12 [facility] Furosemide (Lasix) 40 mg IVP DAILY [facility] Last Admin: 10/16/17 10:20 Dose: 40 mg Glucagon (Glucagen Diagnostic Kit) 0 mg IM STAT PRN; Protocol PRN Reason: Hypoglycemia Protocol Dextrose (Dextrose 5% In Water 1000 Ml) 1,000 mls @ 0 mls/hr IV .Q0M PRN; Protocol; Per Protocol PRN Reason: Hypoglycemia Protocol Insulin Human Regular (Novolin R) 0 unit SC ACHS [facility] PRN Reason: Protocol Last Admin: 10/16/17 12:08 Dose: Not Given Lisinopril (Zestril) 5 mg PO DAILY [facility] Last Admin: 10/16/17 10:21 Dose: 5 mg Metoprolol Tartrate (Lopressor) 50 mg PO BID [facility] Last Admin: 10/16/17 10:21 Dose: 50 mg Nicotine (Nicoderm Cq) 1 patch TD DAILY [facility] Last Admin: 10/16/17 10:22 Dose: 1 patch Rosuvastatin Calcium (Crestor) 5 mg PO HS [facility] Last Admin: 10/15/17 21:56 Dose: 5 mg - Labs Labs: 10/16/17 08:08 10/16/17 08:08 PT 13.8 SECONDS (9.7-12.2) H 10/15/17 06:10 INR 1.3 10/15/17 06:10 APTT 44 SECONDS (21-34) H D 10/15/17 06:10 - Head Exam Head Exam: ATRAUMATIC, NORMOCEPHALIC - Eye Exam Eye Exam: PERRL - ENT Exam ENT Exam: Mucous Membranes Moist - Neck Exam Neck Exam: Normal Inspection - Respiratory Exam Respiratory Exam: Rhonchi - Cardiovascular Exam Cardiovascular Exam: REGULAR RHYTHM Assessment and Plan (1) COPD exacerbation Assessment & Plan: continue present treatment Status: Acute (2) Atrial fibrillation with RVR Status: Acute (3) Non-STEMI (non-ST elevated myocardial infarction) Assessment & Plan: status post cardiac cath 1. L Main: Patent 2. LAD/Diags: Patent 3. L Cx/OM: Distal L Cx 95% stenosis 4. RCA: Mid 50% 5. Dilated Ascending Aorta, AAA Repeat Contrast ECHO to assess LV function and LV clot PCI of L CX on at [facility] abdomen to assess AAA Status: Acute (4) Thoracic aortic aneurysm without rupture Status: Chronic
[2017-10-16] MEDS: Sodium Chloride 0.45% 1,000 ML IV SCH (17:54)
[2017-10-16] MEDS: Enoxaparin 100 mg Syringe SC SCH (21:50)
--- NOTE | 2017-10-17 00:46 | CARD ---
APPROVED REPORT Date of service: 10/16/2017 EXAM: LIMITED Two-dimensional and M-mode echocardiogram with Doppler, color Doppler with contrast. Other Information Quality : GoodRhythm : INDICATION Atrial Fibrillation Thrombus Echo Enhancing Agent Indication: Rule out thrombus Agent/Amount Used: Definity Mitral Valve E/A ratio0.0 TDI E/Lateral E'0.0E/Medial E'0.0 Tricuspid Valve TR Peak [id number]/sTR Peak Gr.21mmHg <Conclusion> Definity contrast study revealed heterogenous density in the apex which could represent trabeculations, thrombus or artifacts. Suggest BOBBY. Linear low density in the mid-lateral region consistent with papillary muscle. Normal LV systolic function. RVSP is 31mmHg.
[2017-10-17] MEDS: Albuterol-Ipratrop 3 mg / 0.5 (3 ml) UD INH SCH ×5 (03:17→21:02)
--- NOTE | 2017-10-17 07:00 | CP.PCM.PN ---
<Guy Simons - Last Filed: 10/17/17 16:34> Subjective - Date & Time of Evaluation Date of Evaluation: 10/17/17 Time of Evaluation: 07:00 - Subjective Subjective: Medicine note for hospitalist service Pt was trasferred to [facility] for PCI this morning at 6am. Pt was unable to be examined due to transfer. Objective - Vital Signs/Intake and Output Vital Signs (last 24 hours): Temp Pulse Resp BP Pulse Ox 98.1 F 84 20 135/74 95 10/16/17 23:20 10/16/17 23:20 10/16/17 23:20 10/16/17 23:20 10/16/17 23:20 Intake and Output: 10/17/17 10/17/17 06:59 18:59 Intake Total 1100 Output Total 700 Balance 400 - Medications Medications: Current Medications Acetaminophen (Tylenol 325mg Tab) 650 mg PO Q6 PRN PRN Reason: Pain, moderate (4-7) Last Admin: 10/17/17 01:37 Dose: 650 mg Albuterol/Ipratropium (Duoneb 3 Mg/0.5 Mg (3 Ml) Ud) 3 ml INH RQ4 [facility] Last Admin: 10/17/17 03:17 Dose: Not Given Aspirin (Ecotrin) 81 mg PO DAILY [facility] Last Admin: 10/16/17 10:21 Dose: 81 mg Budesonide (Pulmicort Respules) 0.5 mg INH RQ12 [facility] Last Admin: 10/16/17 20:33 Dose: 0.5 mg Clopidogrel Bisulfate (Plavix) 75 mg PO DAILY [facility] Last Admin: 10/16/17 10:21 Dose: 75 mg Dextrose (Dextrose 50% Inj) 50 ml IVP ONCE PRN PRN Reason: Hypoglycemia Dextrose (Dextrose 50% Inj) 0 ml IV STAT PRN; Protocol PRN Reason: Hypoglycemia Protocol Dextrose (Glutose 15) 0 gm PO ONCE PRN; Protocol PRN Reason: Hypoglycemia Protocol Docusate Sodium (Colace) 100 mg PO TID [facility] Last Admin: 10/16/17 17:05 Dose: 100 mg Enoxaparin Sodium (Lovenox) 90 mg SC Q12 [facility] Last Admin: 10/16/17 21:50 Dose: 90 mg Furosemide (Lasix) 40 mg IVP DAILY [facility] Last Admin: 10/16/17 10:20 Dose: 40 mg Glucagon (Glucagen Diagnostic Kit) 0 mg IM STAT PRN; Protocol PRN Reason: Hypoglycemia Protocol Dextrose (Dextrose 5% In Water 1000 Ml) 1,000 mls @ 0 mls/hr IV .Q0M PRN; Protocol; Per Protocol PRN Reason: Hypoglycemia Protocol Sodium Chloride (Sodium Chloride 0.45%) 1,000 mls @ 50 mls/hr IV .Q20H [facility] Last Admin: 10/16/17 17:54 Dose: 50 mls/hr Insulin Human Regular (Novolin R) 0 unit SC ACHS [facility] PRN Reason: Protocol Last Admin: 10/16/17 17:42 Dose: Not Given Lisinopril (Zestril) 5 mg PO DAILY [facility] Last Admin: 10/16/17 10:21 Dose: 5 mg Metoprolol Tartrate (Lopressor) 50 mg PO BID [facility] Last Admin: 10/16/17 17:05 Dose: 50 mg Nicotine (Nicoderm Cq) 1 patch TD DAILY [facility] Last Admin: 10/16/17 10:22 Dose: 1 patch Rosuvastatin Calcium (Crestor) 5 mg PO HS [facility] Last Admin: 10/16/17 22:31 Dose: 5 mg - Labs Labs: 10/16/17 08:08 10/16/17 08:08 PT 13.8 SECONDS (9.7-12.2) H 10/15/17 06:10 INR 1.3 10/15/17 06:10 APTT 44 SECONDS (21-34) H D 10/15/17 06:10 Assessment and Plan - Assessment and Plan (Free Text) Assessment: 66yo female with a PMH of HTN and COPD admitted for A-fib and an NSTEMI, s/p cath(10/15) 1 day. Pt is undergoin PCI in [facility] Plan: Pt will be examined and seen upon return to [facility] after PCI at [facility]. <Ken Dominguez - Last Filed: 10/17/17 19:29> Objective - Vital Signs/Intake and Output Vital Signs (last 24 hours): Temp Pulse Resp BP Pulse Ox 98 F 90 20 145/79 95 10/17/17 15:55 10/17/17 15:55 10/17/17 15:55 10/17/17 15:55 10/17/17 15:55 - Medications Medications: Current Medications Acetaminophen (Tylenol 325mg Tab) 650 mg PO Q6 PRN PRN Reason: Pain, moderate (4-7) Last Admin: 10/17/17 01:37 Dose: 650 mg Acetaminophen (Tylenol 325mg Tab) 650 mg PO Q6 [facility] Stop: 10/18/17 18:00 Last Admin: 10/17/17 17:59 Dose: 650 mg Albuterol/Ipratropium (Duoneb 3 Mg/0.5 Mg (3 Ml) Ud) 3 ml INH RQ4 [facility] Last Admin: 10/17/17 16:10 Dose: 3 ml Aspirin (Ecotrin) 81 mg PO DAILY [facility] Last Admin: 10/17/17 09:51 Dose: Not Given Budesonide (Pulmicort Respules) 0.5 mg INH RQ12 [facility] Last Admin: 10/17/17 07:48 Dose: Not Given Clopidogrel Bisulfate (Plavix) 75 mg PO DAILY [facility] Last Admin: 10/17/17 09:52 Dose: Not Given Dextrose (Dextrose 50% Inj) 50 ml IVP ONCE PRN PRN Reason: Hypoglycemia Dextrose (Dextrose 50% Inj) 0 ml IV STAT PRN; Protocol PRN Reason: Hypoglycemia Protocol Dextrose (Glutose 15) 0 gm PO ONCE PRN; Protocol PRN Reason: Hypoglycemia Protocol Docusate Sodium (Colace) 100 mg PO TID [facility] Last Admin: 10/17/17 17:57 Dose: 100 mg Enoxaparin Sodium (Lovenox) 90 mg SC Q12 [facility] Last Admin: 10/16/17 21:50 Dose: 90 mg Furosemide (Lasix) 20 mg IVP DAILY [facility] Glucagon (Glucagen Diagnostic Kit) 0 mg IM STAT PRN; Protocol PRN Reason: Hypoglycemia Protocol Dextrose (Dextrose 5% In Water 1000 Ml) 1,000 mls @ 0 mls/hr IV .Q0M PRN; Protocol; Per Protocol PRN Reason: Hypoglycemia Protocol Sodium Chloride (Sodium Chloride 0.45%) 1,000 mls @ 50 mls/hr IV .Q20H [facility] Last Admin: 10/16/17 17:54 Dose: 50 mls/hr Insulin Human Regular (Novolin R) 0 unit SC ACHS [facility] PRN Reason: Protocol Last Admin: 10/17/17 17:30 Dose: Not Given Lisinopril (Zestril) 5 mg PO DAILY [facility] Last Admin: 10/17/17 09:52 Dose: Not Given Metoprolol Tartrate (Lopressor) 50 mg PO BID [facility] Last Admin: 10/17/17 17:57 Dose: 50 mg Nicotine (Nicoderm Cq) 1 patch TD DAILY [facility] Last Admin: 10/17/17 09:52 Dose: Not Given Rosuvastatin Calcium (Crestor) 20 mg PO HS [facility] - Labs Labs: 10/17/17 17:21 10/17/17 17:21 PT 13.8 SECONDS (9.7-12.2) H 10/15/17 06:10 INR 1.3 10/15/17 06:10 APTT 34 SECONDS (21-34) D 10/17/17 17:21 Attending/Attestation - Attestation I have personally seen and examined this patient.: Yes I have fully participated in the care of the patient.: Yes I have reviewed all pertinent clinical information, including history, physical exam and plan: Yes Notes (Text): 10/17/17 19:08 Patient was seen and examined at 6:00 PM Upon ROS: Pain at the Left Groin catheterization site Exam: General: AAOX3, NAD HEENT: NCA, EOMI, PERRLA, NO cervical/supraclavicular/submandibular lymphadenopathy, NO pharyngeal erythema/exudate, Nasal Turbinates are nonerythematous/nonedematous, Oral Mucosa is moist Cardio: NS1 and NS2, NO M/R/G Resp: CTA B/L, NO R/R/W GI: BSx4, Soft, NT, NO HSM, NO guarding/rebound tenderness Ext: Pulses are strong and equal, Capillary Refill is 2 seconds, NO edema, Left groin catheterization site without signs of bleeding/hematoma/cellulitis Neuro: CN II through XII are grossly intact Assessments: 1). New Onset Atrial Fibrillation: will start Eliquis 2.5 mg PO 2x/day starting 10/18/17 2). NSTEMI: S/P Cardiac Catheterization with GAMAL in Left Circumflex. Crestor, ASA, Plavix, Metoprolol, Lisinopril. As patient will be started on Eliquis on 10/18/17 we will need only one antiplatelet drug to reduces the risk for bleeding and therefore will discontinue the ASA and continue the Plavix 3). Thoracic Aortic Aneurysm: Aorta U/S shows 4.3 x 6.1 cm descending abdominal aortic aneurysm. Will check with Vascular Surgery Dr. Iraheta to see if any additional study is needed. 4). HFrEF (Systolic Heart Failure): Metoprolol, Lisinopril 5). HTN: Metoprolol, Lisinopril 6). Elevated D-Dimer: CT Angio Chest negative for PE and Venous Doppler Legs negative for DVT 7). Bilateral Leg Pain: Venous Doppler Legs negative for DVT 8). Nicotine Addiction: have discussed smoking cessation and risk for continued smoking in light of the new stent 9). New Onset DM 2: will start Metformin on 10/19/17 (48 hours after last constrast administration with Cardiac Catheterization) 10. Possible Asthma: Pulmicort INH, Duoneb If patient continues to remain stable and no evidence of bleed after starting the Eliquis, then will plan for discharge morning 10/19/17. Ken Dominguez D.O.
[2017-10-17] MEDS: Budesonide 0.5 mg/2 ml Inhal Susp UD INH SCH ×2 (07:48→21:02)
[2017-10-17] MEDS: (Novolin R) Insulin Human Regular 100 units/ml vial SC SCH ×4 (08:13→22:35)
--- NOTE | 2017-10-17 10:50 | CP.PCM.PN ---
Subjective - Date & Time of Evaluation Date of Evaluation: 10/17/17 Time of Evaluation: 10:49 - Subjective Subjective: Patient s/p L Cx PCI with GAMAL ambulate after 3pm today IV hydration Check labs in am Resume diet Thank you Objective - Vital Signs/Intake and Output Vital Signs (last 24 hours): Temp Pulse Resp BP Pulse Ox 98.1 F 84 20 135/74 95 10/16/17 23:20 10/16/17 23:20 10/16/17 23:20 10/16/17 23:20 10/16/17 23:20 Intake and Output: 10/17/17 10/17/17 06:59 18:59 Intake Total 1100 Output Total 700 Balance 400 - Medications Medications: Current Medications Acetaminophen (Tylenol 325mg Tab) 650 mg PO Q6 PRN PRN Reason: Pain, moderate (4-7) Last Admin: 10/17/17 01:37 Dose: 650 mg Albuterol/Ipratropium (Duoneb 3 Mg/0.5 Mg (3 Ml) Ud) 3 ml INH RQ4 [facility] Last Admin: 10/17/17 07:48 Dose: Not Given Aspirin (Ecotrin) 81 mg PO DAILY [facility] Last Admin: 10/17/17 09:51 Dose: Not Given Budesonide (Pulmicort Respules) 0.5 mg INH RQ12 [facility] Last Admin: 10/17/17 07:48 Dose: Not Given Clopidogrel Bisulfate (Plavix) 75 mg PO DAILY [facility] Last Admin: 10/17/17 09:52 Dose: Not Given Dextrose (Dextrose 50% Inj) 50 ml IVP ONCE PRN PRN Reason: Hypoglycemia Dextrose (Dextrose 50% Inj) 0 ml IV STAT PRN; Protocol PRN Reason: Hypoglycemia Protocol Dextrose (Glutose 15) 0 gm PO ONCE PRN; Protocol PRN Reason: Hypoglycemia Protocol Docusate Sodium (Colace) 100 mg PO TID [facility] Last Admin: 10/17/17 09:51 Dose: Not Given Enoxaparin Sodium (Lovenox) 90 mg SC Q12 [facility] Last Admin: 10/16/17 21:50 Dose: 90 mg Glucagon (Glucagen Diagnostic Kit) 0 mg IM STAT PRN; Protocol PRN Reason: Hypoglycemia Protocol Dextrose (Dextrose 5% In Water 1000 Ml) 1,000 mls @ 0 mls/hr IV .Q0M PRN; Protocol; Per Protocol PRN Reason: Hypoglycemia Protocol Sodium Chloride (Sodium Chloride 0.45%) 1,000 mls @ 50 mls/hr IV .Q20H [facility] Last Admin: 10/16/17 17:54 Dose: 50 mls/hr Insulin Human Regular (Novolin R) 0 unit SC ACHS [facility] PRN Reason: Protocol Last Admin: 10/17/17 08:13 Dose: Not Given Lisinopril (Zestril) 5 mg PO DAILY [facility] Last Admin: 10/17/17 09:52 Dose: Not Given Metoprolol Tartrate (Lopressor) 50 mg PO BID [facility] Last Admin: 10/17/17 09:52 Dose: Not Given Nicotine (Nicoderm Cq) 1 patch TD DAILY [facility] Last Admin: 10/17/17 09:52 Dose: Not Given - Labs Labs: 10/16/17 08:08 10/16/17 08:08 PT 13.8 SECONDS (9.7-12.2) H 10/15/17 06:10 INR 1.3 10/15/17 06:10 APTT 44 SECONDS (21-34) H D 10/15/17 06:10
--- NOTE | 2017-10-17 12:06 | CARD ---
APPROVED REPORT Date of service: 10/12/2017 EKG Measurement Heart [id number] <Conclusion> Sinus tachycardia Nonspecific ST and T wave abnormality Abnormal ECG
--- NOTE | 2017-10-17 12:10 | CARD ---
APPROVED REPORT Date of service: 10/12/2017 EKG Measurement Heart [id number] <Conclusion> Atrial fibrillation with rapid ventricular response Nonspecific ST and T wave abnormality Abnormal ECG
[2017-10-17 17:36] LABS: HEMOGLOBIN 12.2 g/dL (11.0-16.0); MEAN CELL VOLUME 88.2 fL (81.0-99.0); MEAN CORPUSCULAR HEMOGLOBIN 29.4 pg (27.0-31.0); MEAN CORPUSCULAR HGB CONC 33.3 g/dL (33.0-37.0); MEAN PLATELET VOLUME 7.9 fL (7.2-11.7); RBC 4.16 Mil/uL (3.80-5.20); RED CELL DISTRIBUTION WIDTH 14.5 % (11.5-14.5); WHITE BLOOD COUNT 9.8 K/uL (4.8-10.8)
[2017-10-17 17:57] LABS: BLOOD UREA NITROGEN 13 mg/dL (7-17); GFR AFRICAN-AMERICAN > 60; GFR NON-AFRICAN AMERICAN > 60
[2017-10-17 17:58] LABS: ALBUMIN 3.6 g/dL (3.5-5.0)
[2017-10-17 17:59] LABS: ALT/SGPT 27 U/L (9-52); AST/SGOT 30 U/L (14-36)
--- NOTE | 2017-10-17 18:37 | CP.PCM.PN ---
Subjective - Date & Time of Evaluation Date of Evaluation: 10/17/17 Time of Evaluation: 18:00 - Subjective Subjective: patient seen and examined Status stent placement Complaining of back pain Breathing and cough much improved Afebrile No chest pain Objective - Vital Signs/Intake and Output Vital Signs (last 24 hours): Temp Pulse Resp BP Pulse Ox 98 F 90 20 145/79 95 10/17/17 15:55 10/17/17 15:55 10/17/17 15:55 10/17/17 15:55 10/17/17 15:55 Intake and Output: 10/17/17 10/17/17 06:59 18:59 Intake Total 1100 Output Total 700 Balance 400 - Medications Medications: Current Medications Acetaminophen (Tylenol 325mg Tab) 650 mg PO Q6 PRN PRN Reason: Pain, moderate (4-7) Last Admin: 10/17/17 01:37 Dose: 650 mg Acetaminophen (Tylenol 325mg Tab) 650 mg PO Q6 [facility] Stop: 10/18/17 18:00 Last Admin: 10/17/17 17:59 Dose: 650 mg Albuterol/Ipratropium (Duoneb 3 Mg/0.5 Mg (3 Ml) Ud) 3 ml INH RQ4 [facility] Last Admin: 10/17/17 16:10 Dose: 3 ml Aspirin (Ecotrin) 81 mg PO DAILY [facility] Last Admin: 10/17/17 09:51 Dose: Not Given Budesonide (Pulmicort Respules) 0.5 mg INH RQ12 [facility] Last Admin: 10/17/17 07:48 Dose: Not Given Clopidogrel Bisulfate (Plavix) 75 mg PO DAILY [facility] Last Admin: 10/17/17 09:52 Dose: Not Given Dextrose (Dextrose 50% Inj) 50 ml IVP ONCE PRN PRN Reason: Hypoglycemia Dextrose (Dextrose 50% Inj) 0 ml IV STAT PRN; Protocol PRN Reason: Hypoglycemia Protocol Dextrose (Glutose 15) 0 gm PO ONCE PRN; Protocol PRN Reason: Hypoglycemia Protocol Docusate Sodium (Colace) 100 mg PO TID [facility] Last Admin: 10/17/17 17:57 Dose: 100 mg Enoxaparin Sodium (Lovenox) 90 mg SC Q12 [facility] Last Admin: 10/16/17 21:50 Dose: 90 mg Furosemide (Lasix) 20 mg IVP DAILY [facility] Glucagon (Glucagen Diagnostic Kit) 0 mg IM STAT PRN; Protocol PRN Reason: Hypoglycemia Protocol Dextrose (Dextrose 5% In Water 1000 Ml) 1,000 mls @ 0 mls/hr IV .Q0M PRN; Protocol; Per Protocol PRN Reason: Hypoglycemia Protocol Sodium Chloride (Sodium Chloride 0.45%) 1,000 mls @ 50 mls/hr IV .Q20H [facility] Last Admin: 10/16/17 17:54 Dose: 50 mls/hr Insulin Human Regular (Novolin R) 0 unit SC ACHS [facility] PRN Reason: Protocol Last Admin: 10/17/17 17:30 Dose: Not Given Lisinopril (Zestril) 5 mg PO DAILY [facility] Last Admin: 10/17/17 09:52 Dose: Not Given Metoprolol Tartrate (Lopressor) 50 mg PO BID [facility] Last Admin: 10/17/17 17:57 Dose: 50 mg Nicotine (Nicoderm Cq) 1 patch TD DAILY [facility] Last Admin: 10/17/17 09:52 Dose: Not Given Rosuvastatin Calcium (Crestor) 20 mg PO HS [facility] - Labs Labs: 10/17/17 17:21 10/17/17 17:21 PT 13.8 SECONDS (9.7-12.2) H 10/15/17 06:10 INR 1.3 10/15/17 06:10 APTT 34 SECONDS (21-34) D 10/17/17 17:21 - Head Exam Head Exam: ATRAUMATIC, NORMOCEPHALIC - ENT Exam ENT Exam: Mucous Membranes Moist - Neck Exam Neck Exam: Normal Inspection - Respiratory Exam Respiratory Exam: Clear to Ausculation Bilateral - Cardiovascular Exam Cardiovascular Exam: REGULAR RHYTHM - GI/Abdominal Exam GI & Abdominal Exam: Soft, Normal Bowel Sounds Assessment and Plan (1) COPD exacerbation Assessment & Plan: continue nebulizer treatment and inhaled steroids Status: Acute (2) Non-STEMI (non-ST elevated myocardial infarction) Assessment & Plan: status post stent placement Status: Acute (3) Atrial fibrillation with RVR Status: Acute (4) Thoracic aortic aneurysm without rupture Status: Chronic
--- NOTE | 2017-10-17 19:20 | CP.PCM.CON ---
History of Present Illness - History of Present Illness History of Present Illness: Vascular Consult for Dr. Iraheta Mrs Evangelista is a 66 yr old female PMH of smoking and HTN who presented to [facility] with SOB and palpitations. She was found to have afib with RVR and incidentally found to have a 4 cm x 6 cm abdominal aortic aneurysm as well as an aneurysm of her ascending aorta. At this time she denies any SOB, chest pain , abdominal pain, back pain, f/c/n/v. PMH: HTN PSH: denies Allergies: nkda Social: Smoker, / ppd x 30 years, has decided to quit Review of Systems - Review of Systems All systems: reviewed and no additional remarkable complaints except Review of Systems: as per HPI Past Patient History - Past Medical History & Family History Past Medical History?: Yes - Past Social History Smoking Status: Light Smoker < 10 Cigarettes Daily Alcohol: None Drugs: Denies Home Situation {Lives}: With Family - CARDIAC Hx Hypertension: Yes - MUSCULOSKELETAL/RHEUMATOLOGICAL Hx Falls: Yes (more than 30 years ago) - PSYCHIATRIC Hx Substance Use: No - SURGICAL HISTORY Hx Surgeries: No - ANESTHESIA Hx Anesthesia: No Meds Allergies/Adverse Reactions: Allergies Allergy/AdvReac Type Severity Reaction Status Date / Time No Known Allergies Allergy Verified 10/12/17 11:22 - Medications Medications: Current Medications Acetaminophen (Tylenol 325mg Tab) 650 mg PO Q6 PRN PRN Reason: Pain, moderate (4-7) Last Admin: 10/17/17 01:37 Dose: 650 mg Acetaminophen (Tylenol 325mg Tab) 650 mg PO Q6 [facility] Stop: 10/18/17 18:00 Last Admin: 10/17/17 17:59 Dose: 650 mg Albuterol/Ipratropium (Duoneb 3 Mg/0.5 Mg (3 Ml) Ud) 3 ml INH RQ4 [facility] Last Admin: 10/17/17 16:10 Dose: 3 ml Aspirin (Ecotrin) 81 mg PO DAILY [facility] Last Admin: 10/17/17 09:51 Dose: Not Given Budesonide (Pulmicort Respules) 0.5 mg INH RQ12 [facility] Last Admin: 10/17/17 07:48 Dose: Not Given Clopidogrel Bisulfate (Plavix) 75 mg PO DAILY [facility] Last Admin: 10/17/17 09:52 Dose: Not Given Dextrose (Dextrose 50% Inj) 50 ml IVP ONCE PRN PRN Reason: Hypoglycemia Dextrose (Dextrose 50% Inj) 0 ml IV STAT PRN; Protocol PRN Reason: Hypoglycemia Protocol Dextrose (Glutose 15) 0 gm PO ONCE PRN; Protocol PRN Reason: Hypoglycemia Protocol Docusate Sodium (Colace) 100 mg PO TID [facility] Last Admin: 10/17/17 17:57 Dose: 100 mg Enoxaparin Sodium (Lovenox) 90 mg SC Q12 [facility] Last Admin: 10/16/17 21:50 Dose: 90 mg Furosemide (Lasix) 20 mg IVP DAILY [facility] Glucagon (Glucagen Diagnostic Kit) 0 mg IM STAT PRN; Protocol PRN Reason: Hypoglycemia Protocol Dextrose (Dextrose 5% In Water 1000 Ml) 1,000 mls @ 0 mls/hr IV .Q0M PRN; Protocol; Per Protocol PRN Reason: Hypoglycemia Protocol Sodium Chloride (Sodium Chloride 0.45%) 1,000 mls @ 50 mls/hr IV .Q20H [facility] Last Admin: 10/16/17 17:54 Dose: 50 mls/hr Insulin Human Regular (Novolin R) 0 unit SC ACHS [facility] PRN Reason: Protocol Last Admin: 10/17/17 17:30 Dose: Not Given Lisinopril (Zestril) 5 mg PO DAILY [facility] Last Admin: 10/17/17 09:52 Dose: Not Given Metoprolol Tartrate (Lopressor) 50 mg PO BID [facility] Last Admin: 10/17/17 17:57 Dose: 50 mg Nicotine (Nicoderm Cq) 1 patch TD DAILY [facility] Last Admin: 10/17/17 09:52 Dose: Not Given Rosuvastatin Calcium (Crestor) 20 mg PO [facility] Physical Exam - Constitutional Appears: Well, Non-toxic, No Acute Distress - Head Exam Head Exam: ATRAUMATIC, NORMOCEPHALIC - ENT Exam ENT Exam: Mucous Membranes Moist - Respiratory Exam Respiratory Exam: NORMAL BREATHING PATTERN - Cardiovascular Exam Cardiovascular Exam: +S1, +S2 - GI/Abdominal Exam GI & Abdominal Exam: Pulsatile Mass, Soft. absent: Distended, Firm, Guarding, Rebound, Rigid, Tenderness Additional comments: pulsatile mass felt in the epigastric area - Extremities Exam Extremities exam: Positive for: pedal pulses present. Negative for: calf tenderness, pedal edema - Neurological Exam Neurological exam: Alert, Oriented x3 - Psychiatric Exam Psychiatric exam: Normal Affect, Normal Mood - Skin Skin Exam: Dry, Intact, Normal Color, Warm Results - Vital Signs Recent Vital Signs: Last Vital Signs Temp 98 F 10/17/17 15:55 Pulse 90 10/17/17 15:55 Resp 20 10/17/17 15:55 BP 145/79 10/17/17 15:55 Pulse Ox 95 10/17/17 15:55 - Labs Result Diagrams: 10/18/17 07:13 10/17/17 17:21 Labs: Laboratory Results - last 24 hr 10/16/17 10/17/17 10/17/17 21:40 06:34 16:09 WBC RBC Hgb Hct MCV MCH MCHC RDW Plt Count MPV APTT Sodium Potassium Chloride Carbon Dioxide Anion Gap BUN Creatinine Est GFR ( Amer) Est GFR (Non-Af Amer) POC Glucose (mg/dL) 139 H 136 H 104 Random Glucose Calcium Phosphorus Magnesium Total Bilirubin AST ALT Alkaline Phosphatase Total Protein Albumin Globulin Albumin/Globulin Ratio 10/17/17 10/17/17 10/17/17 17:21 17:21 17:21 WBC 9.8 RBC 4.16 Hgb 12.2 Hct 36.7 MCV 88.2 MCH 29.4 MCHC 33.3 RDW 14.5 Plt Count 438 H MPV 7.9 APTT 34 D Sodium 138 Potassium 3.6 Chloride 99 Carbon Dioxide 29 Anion Gap 14 BUN 13 Creatinine 0.7 Est GFR ( Amer) > 60 Est GFR (Non-Af Amer) > 60 POC Glucose (mg/dL) Random Glucose 105 Calcium 9.0 Phosphorus 3.6 Magnesium 2.2 Total Bilirubin 0.5 AST 30 ALT 27 Alkaline Phosphatase 102 Total Protein 7.3 Albumin 3.6 Globulin 3.7 Albumin/Globulin Ratio 1.0 Assessment & Plan - Assessment and Plan (Free Text) Assessment: 66 yr old Female with 4cm x 6cm abdominal aortic aneurysm Plan: - s/p stent placement this AM, procedure successful - CTA chest abdomen pelvis with ileofemoral runoff ordered - plan for outpatient endovascular intervention - continue medical management as per primary/cardiology - Discussed plan with Dr. Iraheta, all further recs per him Yareli Guerra, PGY 1 - Date & Time Date: 10/17/17 Time: 15:45
[2017-10-17] MEDS: Enoxaparin 100 mg Syringe SC SCH (22:34)
[2017-10-18] MEDS: Albuterol-Ipratrop 3 mg / 0.5 (3 ml) UD INH SCH ×6 (00:31→20:51)
[2017-10-18] MEDS: (Novolin R) Insulin Human Regular 100 units/ml vial SC SCH ×3 (07:21→16:53)
[2017-10-18 07:29] LABS: BASO # 0.1 K/uL (0.0-0.2); BASO % 0.5 % (0.0-2.0); EOS # 0.2 K/uL (0.0-0.7); EOS % 1.8 % (0.0-4.0); HEMOGLOBIN 11.9 g/dL (11.0-16.0); LYMPH # 2.1 K/uL (1.0-4.3); LYMPH % 17.8 % (20.0-40.0); MEAN CELL VOLUME 87.3 fL (81.0-99.0); MEAN CORPUSCULAR HEMOGLOBIN 28.5 pg (27.0-31.0); MEAN CORPUSCULAR HGB CONC 32.6 g/dL (33.0-37.0); MEAN PLATELET VOLUME 8.1 fL (7.2-11.7); MONO % 8.2 % (0.0-10.0); NEUT # 8.4 K/uL (1.8-7.0); NEUT % 71.7 % (50.0-75.0); NRBC % 0.1 % (0.0-2.0); RBC 4.18 Mil/uL (3.80-5.20); RED CELL DISTRIBUTION WIDTH 14.2 % (11.5-14.5); WHITE BLOOD COUNT 11.7 K/uL (4.8-10.8)
[2017-10-18] MEDS: Budesonide 0.5 mg/2 ml Inhal Susp UD INH SCH ×2 (07:37→20:51)
[2017-10-18 07:54] LABS: ALBUMIN 3.5 g/dL (3.5-5.0); ALT/SGPT 24 U/L (9-52); AST/SGOT 32 U/L (14-36); BLOOD UREA NITROGEN 10 mg/dL (7-17); GFR AFRICAN-AMERICAN > 60; GFR NON-AFRICAN AMERICAN > 60
--- NOTE | 2017-10-18 08:58 | CP.PCM.PN ---
Subjective - Date & Time of Evaluation Date of Evaluation: 10/18/17 Time of Evaluation: 08:25 - Subjective Subjective: Patient seen and examined. No acute events overnight. No complaints. Objective - Vital Signs/Intake and Output Vital Signs (last 24 hours): Temp Pulse Resp BP Pulse Ox 98.8 F 103 H 18 151/74 H 97 10/18/17 07:50 10/18/17 07:50 10/18/17 07:50 10/18/17 07:50 10/18/17 07:50 Intake and Output: 10/18/17 10/18/17 06:59 18:59 Intake Total 400 Balance 400 - Medications Medications: Current Medications Acetaminophen (Tylenol 325mg Tab) 650 mg PO Q6 PRN PRN Reason: Pain, moderate (4-7) Last Admin: 10/18/17 08:34 Dose: 650 mg Acetaminophen (Tylenol 325mg Tab) 650 mg PO Q6 [facility] Stop: 10/18/17 18:00 Last Admin: 10/17/17 23:57 Dose: 650 mg Albuterol/Ipratropium (Duoneb 3 Mg/0.5 Mg (3 Ml) Ud) 3 ml INH RQ4 [facility] Last Admin: 10/18/17 07:37 Dose: 3 ml Aspirin (Ecotrin) 81 mg PO DAILY [facility] Last Admin: 10/17/17 09:51 Dose: Not Given Budesonide (Pulmicort Respules) 0.5 mg INH RQ12 [facility] Last Admin: 10/18/17 07:37 Dose: 0.5 mg Clopidogrel Bisulfate (Plavix) 75 mg PO DAILY [facility] Last Admin: 10/17/17 09:52 Dose: Not Given Dextrose (Dextrose 50% Inj) 50 ml IVP ONCE PRN PRN Reason: Hypoglycemia Dextrose (Dextrose 50% Inj) 0 ml IV STAT PRN; Protocol PRN Reason: Hypoglycemia Protocol Dextrose (Glutose 15) 0 gm PO ONCE PRN; Protocol PRN Reason: Hypoglycemia Protocol Docusate Sodium (Colace) 100 mg PO TID [facility] Last Admin: 10/17/17 17:57 Dose: 100 mg Enoxaparin Sodium (Lovenox) 90 mg SC Q12 [facility] Last Admin: 10/17/17 22:34 Dose: 90 mg Furosemide (Lasix) 20 mg IVP DAILY [facility] Glucagon (Glucagen Diagnostic Kit) 0 mg IM STAT PRN; Protocol PRN Reason: Hypoglycemia Protocol Dextrose (Dextrose 5% In Water 1000 Ml) 1,000 mls @ 0 mls/hr IV .Q0M PRN; Protocol; Per Protocol PRN Reason: Hypoglycemia Protocol Sodium Chloride (Sodium Chloride 0.45%) 1,000 mls @ 50 mls/hr IV .Q20H [facility] Last Admin: 10/16/17 17:54 Dose: 50 mls/hr Insulin Human Regular (Novolin R) 0 unit SC ACHS [facility] PRN Reason: Protocol Last Admin: 10/18/17 07:21 Dose: Not Given Lisinopril (Zestril) 5 mg PO DAILY [facility] Last Admin: 10/17/17 09:52 Dose: Not Given Metoprolol Tartrate (Lopressor) 50 mg PO BID [facility] Last Admin: 10/17/17 17:57 Dose: 50 mg Nicotine (Nicoderm Cq) 1 patch TD DAILY [facility] Last Admin: 10/17/17 09:52 Dose: Not Given Rosuvastatin Calcium (Crestor) 20 mg PO HS [facility] Last Admin: 10/17/17 22:34 Dose: 20 mg - Labs Labs: 10/18/17 07:13 10/18/17 07:13 PT 13.8 SECONDS (9.7-12.2) H 10/15/17 06:10 INR 1.3 10/15/17 06:10 APTT 34 SECONDS (21-34) D 10/17/17 17:21 - Constitutional Appears: No Acute Distress - Head Exam Head Exam: NORMOCEPHALIC - Eye Exam Eye Exam: Normal appearance - ENT Exam ENT Exam: Mucous Membranes Moist - Respiratory Exam Respiratory Exam: NORMAL BREATHING PATTERN - Cardiovascular Exam Cardiovascular Exam: +S1, +S2 - GI/Abdominal Exam GI & Abdominal Exam: Soft - Neurological Exam Neurological Exam: Alert, Awake, Oriented x3 - Psychiatric Exam Psychiatric exam: Normal Mood - Skin Skin Exam: Dry, Intact, Warm Assessment and Plan - Assessment and Plan (Free Text) Assessment: 66F with AAA Plan: Follow up CT chest Follow up Abd angiography Patient may follow up in office for planning of endovascular repair Further recs per Dr. Myrtle Keenan PGY3
[2017-10-18] MEDS: Sodium Chloride 0.45% 1,000 ML IV SCH (11:16)
--- NOTE | 2017-10-18 12:01 | CP.PCM.PN ---
Subjective - Date & Time of Evaluation Date of Evaluation: 10/18/17 Time of Evaluation: 11:56 - Subjective Subjective: medicine note for hospitalist service Pt jaxon and examined at bedside. Pt complains of right sided upper thoracic back pain that is positional and reproducible with pressure. Pt wishes to go home. Pt understands necessity for CTA and is willing to proceed under medical advice. Pt denies chest pain, SOB, N/V, F/C, leg swelling or pain with inspiration. Objective - Vital Signs/Intake and Output Vital Signs (last 24 hours): Temp Pulse Resp BP Pulse Ox 98.8 F 98 H 18 122/75 97 10/18/17 07:50 10/18/17 11:18 10/18/17 07:50 10/18/17 11:17 10/18/17 07:50 Intake and Output: 10/18/17 10/18/17 06:59 18:59 Intake Total 400 Balance 400 - Medications Medications: Current Medications Acetaminophen (Tylenol 325mg Tab) 650 mg PO Q6 PRN PRN Reason: Pain, moderate (4-7) Last Admin: 10/18/17 08:34 Dose: 650 mg Acetaminophen (Tylenol 325mg Tab) 650 mg PO Q6 [facility] Stop: 10/18/17 18:00 Last Admin: 10/17/17 23:57 Dose: 650 mg Albuterol/Ipratropium (Duoneb 3 Mg/0.5 Mg (3 Ml) Ud) 3 ml INH RQ4 [facility] Last Admin: 10/18/17 07:37 Dose: 3 ml Apixaban (Eliquis) 2.5 mg PO Q12H [facility] Budesonide (Pulmicort Respules) 0.5 mg INH RQ12 [facility] Last Admin: 10/18/17 07:37 Dose: 0.5 mg Clopidogrel Bisulfate (Plavix) 75 mg PO DAILY [facility] Last Admin: 10/18/17 11:16 Dose: 75 mg Dextrose (Dextrose 50% Inj) 50 ml IVP ONCE PRN PRN Reason: Hypoglycemia Dextrose (Dextrose 50% Inj) 0 ml IV STAT PRN; Protocol PRN Reason: Hypoglycemia Protocol Dextrose (Glutose 15) 0 gm PO ONCE PRN; Protocol PRN Reason: Hypoglycemia Protocol Docusate Sodium (Colace) 100 mg PO TID [facility] Last Admin: 10/18/17 11:16 Dose: 100 mg Furosemide (Lasix) 20 mg IVP DAILY [facility] Last Admin: 10/18/17 11:17 Dose: 20 mg Glucagon (Glucagen Diagnostic Kit) 0 mg IM STAT PRN; Protocol PRN Reason: Hypoglycemia Protocol Dextrose (Dextrose 5% In Water 1000 Ml) 1,000 mls @ 0 mls/hr IV .Q0M PRN; Protocol; Per Protocol PRN Reason: Hypoglycemia Protocol Sodium Chloride (Sodium Chloride 0.45%) 1,000 mls @ 50 mls/hr IV .Q20H [facility] Last Admin: 10/16/17 17:54 Dose: 50 mls/hr Sodium Chloride (Sodium Chloride 0.9%) 1,000 mls @ 50 mls/hr IV .Q20H [facility] Insulin Human Regular (Novolin R) 0 unit SC ACHS [facility] PRN Reason: Protocol Last Admin: 10/18/17 11:40 Dose: Not Given Lisinopril (Zestril) 5 mg PO DAILY [facility] Last Admin: 10/18/17 11:16 Dose: 5 mg Metoprolol Tartrate (Lopressor) 50 mg PO BID [facility] Last Admin: 10/18/17 11:16 Dose: 50 mg Nicotine (Nicoderm Cq) 1 patch TD DAILY [facility] Last Admin: 10/18/17 11:16 Dose: 1 patch Rosuvastatin Calcium (Crestor) 20 mg PO HS [facility] Last Admin: 10/17/17 22:34 Dose: 20 mg - Labs Labs: 10/18/17 07:13 10/18/17 07:13 PT 13.8 SECONDS (9.7-12.2) H 10/15/17 06:10 INR 1.3 10/15/17 06:10 APTT 34 SECONDS (21-34) D 10/17/17 17:21 - Constitutional Appears: Well, Non-toxic, No Acute Distress - Head Exam Head Exam: ATRAUMATIC, NORMAL INSPECTION - Eye Exam Eye Exam: EOMI, Normal appearance. absent: Periorbital swelling - ENT Exam ENT Exam: Mucous Membranes Moist - Neck Exam Neck Exam: Normal Inspection. absent: Thyromegaly - Respiratory Exam Respiratory Exam: Clear to Ausculation Bilateral, NORMAL BREATHING PATTERN. absent: Wheezes, Respiratory Distress, Stridor - Cardiovascular Exam Cardiovascular Exam: RRR, +S1, +S2 - GI/Abdominal Exam GI & Abdominal Exam: Soft, Normal Bowel Sounds. absent: Guarding, Tenderness, Organomegaly - Extremities Exam Extremities Exam: Full ROM, Normal Capillary Refill, Pedal Edema (+1 bilateral) . absent: Calf Tenderness, Joint Swelling - Back Exam Back Exam: NORMAL INSPECTION, paraspinal tenderness (right throacic) - Neurological Exam Neurological Exam: Alert, Awake, CN II-XII Intact, Normal Gait, Oriented x3 Neuro motor strength exam: Left Upper Extremity: 5, Right Upper Extremity: 5, Left Lower Extremity: 5, Right Lower Extremity: 5 - Psychiatric Exam Psychiatric exam: Anxious - Skin Skin Exam: Normal Color, Warm Assessment and Plan - Assessment and Plan (Free Text) Assessment: .66yo female with a PMH of HTN and COPD admitted for A-fib and an NSTEMI, s/p cath(10/15) 3 day. s/p PCI day 1 (10/17) Plan: Paroxysmal Atrial fibrillation with RVR now NSR -Improved -Lovenox 90mg q12 -ASA 81mg PO daily -Plavix 75mg PO daily -Lopressor 50mg PO BID -CHADSVASC: 4, HASBLED: 1 -Cardio consulted: Dr Talley -Echo (10/12/17): Ascending Aorta 4.4 cm dilation, LVH. 30% Mild aortic regurgitation is present. -CT angio r/o PE (10/10/17): Neg PE. Mild aneurysmal dilatation of the ascending thoracic aorta. -Cath done 10/15 results: L circumflex block Non-STEMI (non-ST elevated myocardial infarction) -s/p day 1 drug eluding stent PCI (10/17): L circumflex -Pt refused life vest -Lovenox 90mg sc q12 -Aspirin 81mg PO daily -Start Lisinopril 5mg PO daily -Lopressor PO 50mg BID -Echo (10/12/17): Ascending Aorta 4.4 cm dilation, LVH. 30% Mild aortic regurgitation is present. -CT angio r/o PE (10/10/17): No PE. Mild aneurysmal dilatation of the ascending thoracic aorta. -trop 10/13 : .24 -trigly: 120, chol: 145, LDL: 83, HDL:26, TSH:1.06 -Cath done 10/15: results- Left Circumflex blockage Aortic Arch Aneurysm -Vascular Surgery Consulted: Dr Myrtle- recs appreciated -CTA Abd and Chest: Pending -Echo (10/12/17): Ascending Aorta 4.4 cm dilation, LVH. 30% Mild aortic regurgitation is present. -CT angio r/o PE (10/10/17): No PE. Mild aneurysmal dilatation of the ascending thoracic aorta. -Cath 10/15: Left Circumflex Blockage -GAMAL PCI 10/17: Left circumflex s/p procedure day 1 -BP control Systolic Heart Failure -Cardiology (Dr. Talley): help appreciated -BNP 10/12: 952 -Aspirin 81mg PO daily -Plavix 75mg PO daily -Lopressor 50mg PO BID -Lisinopril 5mg PO daily -Crestor 5mg PO HS -Fluid restriction (1200ML) -Record intake and outputs Hypertension -Monitor BP, HR -Lopressor 50mg PO BID -Lisinopril 5mg PO daily Elevated d-dimer -Doppler: neg -Echo (10/12/17): Ascending Aorta 4.4 cm dilation, LVH. 30% Mild aortic regurgitation is present. -CT angio r/o PE (10/10/17): No PE. Mild aneurysmal dilatation of the ascending thoracic aorta. Leg pain, bilateral -f/u venous doppler: r/o dvt -elevated d-dimer -Wells's criteria: 1: moderate risk -risk factor: recent plane ride (3 hours), obesity Shortness of breath -Duonebs RQ4 [facility] -Budenoside 0.5mg Rq12 -O2 nasal cannula PPX -Lovenox 1mg/subq 12hour -ASA 81mg Po daily -Plavix 75mg PO daily -Fluid restriction -Intake and output -Pepcid 20mg PO BID for GI ppx disposition: s/p Drug Eluding Stent PCI, L circumflex block, pt pending CTA Abd chest
[2017-10-18] MEDS ORDERED: Ergocalciferol 50,000 Intl Units Cap PO SCH (13:30)
[2017-10-18] MEDS ORDERED: Iodixanol 320 mg/ml 150 ml Bottle IV ONE (15:06)
[2017-10-18] MEDS ORDERED: Sodium Chloride 0.9% 1,000 ML IV SCH (16:00)
--- NOTE | 2017-10-18 16:54 | CP.PCM.PN ---
Subjective - Date & Time of Evaluation Date of Evaluation: 10/18/17 Time of Evaluation: 12:00 - Subjective Subjective: patient seen and examined Still has wheezing but overall breathing much improved Status post cardiac catheter and stent placement No chest pain Objective - Vital Signs/Intake and Output Vital Signs (last 24 hours): Temp Pulse Resp BP Pulse Ox 97.8 F 92 H 20 113/60 95 10/18/17 15:25 10/18/17 16:00 10/18/17 15:25 10/18/17 15:25 10/18/17 15:25 Intake and Output: 10/18/17 10/18/17 06:59 18:59 Intake Total 400 Balance 400 - Medications Medications: Current Medications Acetaminophen (Tylenol 325mg Tab) 650 mg PO Q6 PRN PRN Reason: Pain, moderate (4-7) Last Admin: 10/18/17 08:34 Dose: 650 mg Acetaminophen (Tylenol 325mg Tab) 650 mg PO Q6 [facility] Stop: 10/18/17 18:00 Last Admin: 10/18/17 12:56 Dose: Not Given Albuterol/Ipratropium (Duoneb 3 Mg/0.5 Mg (3 Ml) Ud) 3 ml INH RQ4 [facility] Last Admin: 10/18/17 16:12 Dose: 3 ml Apixaban (Eliquis) 2.5 mg PO Q12H [facility] Budesonide (Pulmicort Respules) 0.5 mg INH RQ12 [facility] Last Admin: 10/18/17 07:37 Dose: 0.5 mg Clopidogrel Bisulfate (Plavix) 75 mg PO DAILY [facility] Last Admin: 10/18/17 11:16 Dose: 75 mg Dextrose (Dextrose 50% Inj) 50 ml IVP ONCE PRN PRN Reason: Hypoglycemia Dextrose (Dextrose 50% Inj) 0 ml IV STAT PRN; Protocol PRN Reason: Hypoglycemia Protocol Dextrose (Glutose 15) 0 gm PO ONCE PRN; Protocol PRN Reason: Hypoglycemia Protocol Docusate Sodium (Colace) 100 mg PO TID [facility] Last Admin: 10/18/17 14:45 Dose: 100 mg Ergocalciferol (Drisdol 50,000 Intl Units Cap) 1 cap PO Q7D [facility] Last Admin: 10/18/17 14:45 Dose: 1 cap Furosemide (Lasix) 20 mg IVP DAILY [facility] Last Admin: 10/18/17 11:17 Dose: 20 mg Glucagon (Glucagen Diagnostic Kit) 0 mg IM STAT PRN; Protocol PRN Reason: Hypoglycemia Protocol Dextrose (Dextrose 5% In Water 1000 Ml) 1,000 mls @ 0 mls/hr IV .Q0M PRN; Protocol; Per Protocol PRN Reason: Hypoglycemia Protocol Sodium Chloride (Sodium Chloride 0.45%) 1,000 mls @ 50 mls/hr IV .Q20H [facility] Last Admin: 10/18/17 11:16 Dose: 50 mls/hr Sodium Chloride (Sodium Chloride 0.9%) 1,000 mls @ 50 mls/hr IV .Q20H [facility] Insulin Human Regular (Novolin R) 0 unit SC ACHS [facility] PRN Reason: Protocol Last Admin: 10/18/17 11:40 Dose: Not Given Lisinopril (Zestril) 5 mg PO DAILY [facility] Last Admin: 10/18/17 11:16 Dose: 5 mg Metoprolol Tartrate (Lopressor) 50 mg PO BID [facility] Last Admin: 10/18/17 11:16 Dose: 50 mg Nicotine (Nicoderm Cq) 1 patch TD DAILY [facility] Last Admin: 10/18/17 11:16 Dose: 1 patch Rosuvastatin Calcium (Crestor) 20 mg PO HS [facility] Last Admin: 10/17/17 22:34 Dose: 20 mg - Labs Labs: 10/18/17 07:13 10/18/17 07:13 PT 13.8 SECONDS (9.7-12.2) H 10/15/17 06:10 INR 1.3 10/15/17 06:10 APTT 34 SECONDS (21-34) D 10/17/17 17:21 - Head Exam Head Exam: ATRAUMATIC, NORMOCEPHALIC - ENT Exam ENT Exam: Mucous Membranes Moist - Neck Exam Neck Exam: Normal Inspection - Respiratory Exam Respiratory Exam: Rhonchi, Wheezes - Cardiovascular Exam Cardiovascular Exam: REGULAR RHYTHM - GI/Abdominal Exam GI & Abdominal Exam: Soft, Normal Bowel Sounds - Extremities Exam Extremities Exam: Normal Inspection Assessment and Plan (1) COPD exacerbation Assessment & Plan: Continue albuterol Inhaled steroids Tapering dose of prednisone Follow up in the office for a PFT Status: Acute (2) Atrial fibrillation with RVR Status: Acute (3) Non-STEMI (non-ST elevated myocardial infarction) Status: Acute (4) Thoracic aortic aneurysm without rupture Status: Chronic
--- NOTE | 2017-10-18 19:27 | CP.PCM.PN ---
Subjective - Date & Time of Evaluation Date of Evaluation: 10/18/17 Time of Evaluation: 16:00 - Subjective Subjective: Pt jaxon and examined at bedside. Pt complains of right sided upper thoracic back pain that is positional and reproducible with pressure. Pt wishes to go home. Pt understands necessity for CTA and is willing to proceed under medical advice. Pt denies chest pain, SOB, N/V, F/C, leg swelling or pain with inspiration. Physical Examination - Constitutional Appears: Well, Non-toxic, No Acute Distress - Head Exam Head Exam: ATRAUMATIC, NORMAL INSPECTION - Eye Exam Eye Exam: EOMI, Normal appearance. absent: Periorbital swelling - ENT Exam ENT Exam: Mucous Membranes Moist - Neck Exam Neck Exam: Normal Inspection. absent: Thyromegaly - Respiratory Exam Respiratory Exam: Clear to Ausculation Bilateral, NORMAL BREATHING PATTERN. absent: Wheezes, Respiratory Distress, Stridor - Cardiovascular Exam Cardiovascular Exam: RRR, +S1, +S2 - GI/Abdominal Exam GI & Abdominal Exam: Soft, Normal Bowel Sounds. absent: Guarding, Tenderness, Organomegaly - Extremities Exam Extremities Exam: Full ROM, Normal Capillary Refill, Pedal Edema (+1 bilateral) . absent: Calf Tenderness, Joint Swelling - Back Exam Back Exam: NORMAL INSPECTION, paraspinal tenderness (right throacic) - Neurological Exam Neurological Exam: Alert, Awake, CN II-XII Intact, Normal Gait, Oriented x3 Neuro motor strength exam: Left Upper Extremity: 5, Right Upper Extremity: 5, Left Lower Extremity: 5, Right Lower Extremity: 5 - Psychiatric Exam Psychiatric exam: Anxious - Skin Skin Exam: Normal Color, Warm Objective - Vital Signs/Intake and Output Vital Signs (last 24 hours): Temp Pulse Resp BP Pulse Ox 97.8 F 92 H 20 113/60 95 10/18/17 15:25 10/18/17 16:00 10/18/17 15:25 10/18/17 15:25 10/18/17 15:25 - Medications Medications: Current Medications Acetaminophen (Tylenol 325mg Tab) 650 mg PO Q6 PRN PRN Reason: Pain, moderate (4-7) Last Admin: 10/18/17 08:34 Dose: 650 mg Albuterol/Ipratropium (Duoneb 3 Mg/0.5 Mg (3 Ml) Ud) 3 ml INH RQ4 [facility] Last Admin: 10/18/17 16:12 Dose: 3 ml Apixaban (Eliquis) 2.5 mg PO Q12H [facility] Budesonide (Pulmicort Respules) 0.5 mg INH RQ12 [facility] Last Admin: 10/18/17 07:37 Dose: 0.5 mg Clopidogrel Bisulfate (Plavix) 75 mg PO DAILY [facility] Last Admin: 10/18/17 11:16 Dose: 75 mg Dextrose (Dextrose 50% Inj) 50 ml IVP ONCE PRN PRN Reason: Hypoglycemia Dextrose (Dextrose 50% Inj) 0 ml IV STAT PRN; Protocol PRN Reason: Hypoglycemia Protocol Dextrose (Glutose 15) 0 gm PO ONCE PRN; Protocol PRN Reason: Hypoglycemia Protocol Docusate Sodium (Colace) 100 mg PO TID [facility] Last Admin: 10/18/17 17:24 Dose: 100 mg Ergocalciferol (Drisdol 50,000 Intl Units Cap) 1 cap PO Q7D [facility] Last Admin: 10/18/17 14:45 Dose: 1 cap Furosemide (Lasix) 20 mg IVP DAILY [facility] Last Admin: 10/18/17 11:17 Dose: 20 mg Glucagon (Glucagen Diagnostic Kit) 0 mg IM STAT PRN; Protocol PRN Reason: Hypoglycemia Protocol Dextrose (Dextrose 5% In Water 1000 Ml) 1,000 mls @ 0 mls/hr IV .Q0M PRN; Protocol; Per Protocol PRN Reason: Hypoglycemia Protocol Sodium Chloride (Sodium Chloride 0.45%) 1,000 mls @ 50 mls/hr IV .Q20H [facility] Last Admin: 10/18/17 11:16 Dose: 50 mls/hr Sodium Chloride (Sodium Chloride 0.9%) 1,000 mls @ 50 mls/hr IV .Q20H [facility] Last Admin: 10/18/17 16:55 Dose: 50 mls/hr Insulin Human Regular (Novolin R) 0 unit SC ACHS [facility] PRN Reason: Protocol Last Admin: 10/18/17 16:53 Dose: Not Given Lisinopril (Zestril) 5 mg PO DAILY [facility] Last Admin: 10/18/17 11:16 Dose: 5 mg Metoprolol Tartrate (Lopressor) 50 mg PO BID [facility] Last Admin: 10/18/17 17:24 Dose: 50 mg Nicotine (Nicoderm Cq) 1 patch TD DAILY [facility] Last Admin: 10/18/17 11:16 Dose: 1 patch Rosuvastatin Calcium (Crestor) 20 mg PO HS [facility] Last Admin: 10/17/17 22:34 Dose: 20 mg - Labs Labs: 10/18/17 07:13 10/18/17 07:13 PT 13.8 SECONDS (9.7-12.2) H 10/15/17 06:10 INR 1.3 10/15/17 06:10 APTT 34 SECONDS (21-34) D 10/17/17 17:21 Assessment and Plan - Assessment and Plan (Free Text) Assessment: 66yo female with a PMH of HTN and COPD admitted for A-fib and an NSTEMI, s/p cath(10/15) 3 day. s/p PCI day 1 (10/17) Plan: Paroxysmal Atrial fibrillation with RVR now NSR -Improved -Lovenox 90mg q12 -ASA 81mg PO daily -Plavix 75mg PO daily -Lopressor 50mg PO BID -CHADSVASC: 4, HASBLED: 1 -Cardio consulted: Dr Talley -Echo (10/12/17): Ascending Aorta 4.4 cm dilation, LVH. 30% Mild aortic regurgitation is present. -CT angio r/o PE (10/10/17): Neg PE. Mild aneurysmal dilatation of the ascending thoracic aorta. -Cath done 10/15 results: L circumflex block Non-STEMI (non-ST elevated myocardial infarction) -s/p day 1 drug eluding stent PCI (10/17): L circumflex -Pt refused life vest -Lovenox 90mg sc q12 -Aspirin 81mg PO daily -Start Lisinopril 5mg PO daily -Lopressor PO 50mg BID -Echo (10/12/17): Ascending Aorta 4.4 cm dilation, LVH. 30% Mild aortic regurgitation is present. -CT angio r/o PE (10/10/17): No PE. Mild aneurysmal dilatation of the ascending thoracic aorta. -trop 10/13 : .24 -trigly: 120, chol: 145, LDL: 83, HDL:26, TSH:1.06 -Cath done 10/15: results- Left Circumflex blockage Aortic Arch Aneurysm -Vascular Surgery Consulted: Dr Iraheta- recs appreciated -CTA Abd and Chest: Pending -Echo (10/12/17): Ascending Aorta 4.4 cm dilation, LVH. 30% Mild aortic regurgitation is present. -CT angio r/o PE (10/10/17): No PE. Mild aneurysmal dilatation of the ascending thoracic aorta. -Cath 10/15: Left Circumflex Blockage -GAMAL PCI 10/17: Left circumflex s/p procedure day 1 -BP control Systolic Heart Failure -Cardiology (Dr. Talley): help appreciated -BNP 10/12: 952 -Aspirin 81mg PO daily -Plavix 75mg PO daily -Lopressor 50mg PO BID -Lisinopril 5mg PO daily -Crestor 5mg PO HS -Fluid restriction (1200ML) -Record intake and outputs Hypertension -Monitor BP, HR -Lopressor 50mg PO BID -Lisinopril 5mg PO daily Elevated d-dimer -Doppler: neg -Echo (10/12/17): Ascending Aorta 4.4 cm dilation, LVH. 30% Mild aortic regurgitation is present. -CT angio r/o PE (10/10/17): No PE. Mild aneurysmal dilatation of the ascending thoracic aorta. Leg pain, bilateral -f/u venous doppler: r/o dvt -elevated d-dimer -Wells's criteria: 1: moderate risk -risk factor: recent plane ride (3 hours), obesity Shortness of breath -Duonebs RQ4 PRM -Budenoside 0.5mg Rq12 -O2 nasal cannula PPX -Lovenox 1mg/subq 12hour -ASA 81mg Po daily -Plavix 75mg PO daily -Fluid restriction -Intake and output -Pepcid 20mg PO BID for GI ppx disposition: s/p Drug Eluding Stent PCI, L circumflex block, pt pending CTA Abd chest
[2017-10-19] MEDS: Albuterol-Ipratrop 3 mg / 0.5 (3 ml) UD INH SCH ×6 (00:04→20:21)
--- NOTE | 2017-10-19 07:07 | CP.PCM.PN ---
Subjective - Date & Time of Evaluation Date of Evaluation: 10/19/17 Time of Evaluation: 07:06 - Subjective Subjective: Resident Progress Note for Hospitalist Service Patient examined at bedside. Objective - Vital Signs/Intake and Output Vital Signs (last 24 hours): Temp Pulse Resp BP Pulse Ox 98.6 F 106 H 20 116/83 95 10/18/17 23:30 10/19/17 01:00 10/18/17 23:30 10/19/17 04:00 10/18/17 23:30 Intake and Output: 10/19/17 10/19/17 06:59 18:59 Intake Total 400 Balance 400 - Medications Medications: Current Medications Acetaminophen (Tylenol 325mg Tab) 650 mg PO Q6 PRN PRN Reason: Pain, moderate (4-7) Last Admin: 10/18/17 08:34 Dose: 650 mg Albuterol/Ipratropium (Duoneb 3 Mg/0.5 Mg (3 Ml) Ud) 3 ml INH RQ4 [facility] Last Admin: 10/19/17 04:22 Dose: Not Given Apixaban (Eliquis) 2.5 mg PO Q12H [facility] Last Admin: 10/18/17 21:11 Dose: 2.5 mg Budesonide (Pulmicort Respules) 0.5 mg INH RQ12 [facility] Last Admin: 10/18/17 20:51 Dose: 0.5 mg Clopidogrel Bisulfate (Plavix) 75 mg PO DAILY [facility] Last Admin: 10/18/17 11:16 Dose: 75 mg Dextrose (Dextrose 50% Inj) 50 ml IVP ONCE PRN PRN Reason: Hypoglycemia Dextrose (Dextrose 50% Inj) 0 ml IV STAT PRN; Protocol PRN Reason: Hypoglycemia Protocol Dextrose (Glutose 15) 0 gm PO ONCE PRN; Protocol PRN Reason: Hypoglycemia Protocol Docusate Sodium (Colace) 100 mg PO TID [facility] Last Admin: 10/18/17 17:24 Dose: 100 mg Ergocalciferol (Drisdol 50,000 Intl Units Cap) 1 cap PO Q7D [facility] Last Admin: 10/18/17 14:45 Dose: 1 cap Furosemide (Lasix) 20 mg IVP DAILY [facility] Last Admin: 10/18/17 11:17 Dose: 20 mg Glucagon (Glucagen Diagnostic Kit) 0 mg IM STAT PRN; Protocol PRN Reason: Hypoglycemia Protocol Dextrose (Dextrose 5% In Water 1000 Ml) 1,000 mls @ 0 mls/hr IV .Q0M PRN; Protocol; Per Protocol PRN Reason: Hypoglycemia Protocol Sodium Chloride (Sodium Chloride 0.45%) 1,000 mls @ 50 mls/hr IV .Q20H [facility] Last Admin: 10/18/17 11:16 Dose: 50 mls/hr Sodium Chloride (Sodium Chloride 0.9%) 1,000 mls @ 50 mls/hr IV .Q20H [facility] Last Admin: 10/18/17 16:55 Dose: 50 mls/hr Insulin Human Regular (Novolin R) 0 unit SC ACHS [facility] PRN Reason: Protocol Last Admin: 10/18/17 16:53 Dose: Not Given Lisinopril (Zestril) 5 mg PO DAILY [facility] Last Admin: 10/18/17 11:16 Dose: 5 mg Metoprolol Tartrate (Lopressor) 50 mg PO BID [facility] Last Admin: 10/18/17 17:24 Dose: 50 mg Nicotine (Nicoderm Cq) 1 patch TD DAILY [facility] Last Admin: 10/18/17 11:16 Dose: 1 patch Rosuvastatin Calcium (Crestor) 20 mg PO HS [facility] Last Admin: 10/18/17 21:11 Dose: 20 mg - Labs Labs: 10/18/17 07:13 10/18/17 07:13 PT 13.8 SECONDS (9.7-12.2) H 10/15/17 06:10 INR 1.3 10/15/17 06:10 APTT 34 SECONDS (21-34) D 10/17/17 17:21
[2017-10-19 07:57] LABS: BASO # 0.1 K/uL (0.0-0.2); BASO % 0.6 % (0.0-2.0); EOS # 0.2 K/uL (0.0-0.7); EOS % 1.7 % (0.0-4.0); HEMOGLOBIN 10.7 g/dL (11.0-16.0); LYMPH # 2.3 K/uL (1.0-4.3); LYMPH % 20.8 % (20.0-40.0); MEAN CELL VOLUME 87.2 fL (81.0-99.0); MEAN CORPUSCULAR HGB CONC 33.3 g/dL (33.0-37.0); MEAN PLATELET VOLUME 7.8 fL (7.2-11.7); MONO # 0.8 K/uL (0.0-0.8); MONO % 7.2 % (0.0-10.0); NEUT # 7.8 K/uL (1.8-7.0); NEUT % 69.7 % (50.0-75.0); RBC 3.68 Mil/uL (3.80-5.20); RED CELL DISTRIBUTION WIDTH 14.6 % (11.5-14.5); WHITE BLOOD COUNT 11.2 K/uL (4.8-10.8)
[2017-10-19 08:17] LABS: ALBUMIN 3.3 g/dL (3.5-5.0); ALT/SGPT 23 U/L (9-52); AST/SGOT 24 U/L (14-36); BLOOD UREA NITROGEN 9 mg/dL (7-17); CALCIUM 8.6 mg/dl (8.6-10.4); GFR AFRICAN-AMERICAN > 60; GFR NON-AFRICAN AMERICAN > 60
--- NOTE | 2017-10-19 08:19 | CP.PCM.PN ---
Subjective - Date & Time of Evaluation Date of Evaluation: 10/19/17 Time of Evaluation: 08:18 - Subjective Subjective: cta reviewed suitable for endovascular repair fu discussed with patient Objective - Vital Signs/Intake and Output Vital Signs (last 24 hours): Temp Pulse Resp BP Pulse Ox 98.2 F 96 H 18 132/80 96 10/19/17 07:40 10/19/17 07:40 10/19/17 07:40 10/19/17 07:40 10/19/17 07:40 Intake and Output: 10/19/17 10/19/17 06:59 18:59 Intake Total 400 Balance 400 - Medications Medications: Current Medications Acetaminophen (Tylenol 325mg Tab) 650 mg PO Q6 PRN PRN Reason: Pain, moderate (4-7) Last Admin: 10/18/17 08:34 Dose: 650 mg Albuterol/Ipratropium (Duoneb 3 Mg/0.5 Mg (3 Ml) Ud) 3 ml INH RQ4 [facility] Last Admin: 10/19/17 04:22 Dose: Not Given Apixaban (Eliquis) 2.5 mg PO Q12H [facility] Last Admin: 10/18/17 21:11 Dose: 2.5 mg Budesonide (Pulmicort Respules) 0.5 mg INH RQ12 [facility] Last Admin: 10/18/17 20:51 Dose: 0.5 mg Clopidogrel Bisulfate (Plavix) 75 mg PO DAILY [facility] Last Admin: 10/18/17 11:16 Dose: 75 mg Dextrose (Dextrose 50% Inj) 50 ml IVP ONCE PRN PRN Reason: Hypoglycemia Dextrose (Dextrose 50% Inj) 0 ml IV STAT PRN; Protocol PRN Reason: Hypoglycemia Protocol Dextrose (Glutose 15) 0 gm PO ONCE PRN; Protocol PRN Reason: Hypoglycemia Protocol Docusate Sodium (Colace) 100 mg PO TID [facility] Last Admin: 10/18/17 17:24 Dose: 100 mg Ergocalciferol (Drisdol 50,000 Intl Units Cap) 1 cap PO Q7D [facility] Last Admin: 10/18/17 14:45 Dose: 1 cap Furosemide (Lasix) 20 mg IVP DAILY [facility] Last Admin: 10/18/17 11:17 Dose: 20 mg Glucagon (Glucagen Diagnostic Kit) 0 mg IM STAT PRN; Protocol PRN Reason: Hypoglycemia Protocol Dextrose (Dextrose 5% In Water 1000 Ml) 1,000 mls @ 0 mls/hr IV .Q0M PRN; Protocol; Per Protocol PRN Reason: Hypoglycemia Protocol Sodium Chloride (Sodium Chloride 0.45%) 1,000 mls @ 50 mls/hr IV .Q20H [facility] Last Admin: 10/18/17 11:16 Dose: 50 mls/hr Sodium Chloride (Sodium Chloride 0.9%) 1,000 mls @ 50 mls/hr IV .Q20H [facility] Last Admin: 10/18/17 16:55 Dose: 50 mls/hr Insulin Human Regular (Novolin R) 0 unit SC ACHS [facility] PRN Reason: Protocol Last Admin: 10/18/17 16:53 Dose: Not Given Lisinopril (Zestril) 5 mg PO DAILY [facility] Last Admin: 10/18/17 11:16 Dose: 5 mg Metoprolol Tartrate (Lopressor) 50 mg PO BID [facility] Last Admin: 10/18/17 17:24 Dose: 50 mg Nicotine (Nicoderm Cq) 1 patch TD DAILY [facility] Last Admin: 10/18/17 11:16 Dose: 1 patch Rosuvastatin Calcium (Crestor) 20 mg PO HS [facility] Last Admin: 10/18/17 21:11 Dose: 20 mg - Labs Labs: 10/19/17 07:41 10/19/17 07:41 PT 13.8 SECONDS (9.7-12.2) H 10/15/17 06:10 INR 1.3 10/15/17 06:10 APTT 34 SECONDS (21-34) D 10/17/17 17:21
[2017-10-19] MEDS: (Novolin R) Insulin Human Regular 100 units/ml vial SC SCH ×2 (08:38→16:48)
[2017-10-19] MEDS: Budesonide 0.5 mg/2 ml Inhal Susp UD INH SCH ×2 (08:56→20:21)
[2017-10-19] MEDS ORDERED: Potassium Chloride 20 mEq ER Tab PO ONE (08:57)
--- NOTE | 2017-10-19 09:35 | CP.PCM.PN ---
Subjective - Date & Time of Evaluation Date of Evaluation: 10/19/17 Time of Evaluation: 09:15 - Subjective Subjective: Hospitalist Progress Note Patient was seen and examined at 9:15 AM 10/19/17 6[address] Upon FULL ROS NO dysphagia/odynopahgia NO soreness in throat NO cough NO sinus/nasal congestion NO fever/chills NO muscle aches/pains NO joint pain NO chest pain/palpations NO SOB NO abdominal pain NO n/v/d/c NO burning pain with urination NO BLANTON NO lightheadedness/dizziness NO paresthesias Exam: General: AAOX3, NAD HEENT: NCA, EOMI, PERRLA, NO cervical/supraclavicular/submandibular lymphadenopathy, NO pharyngeal erythema/exudate, Nasal Turbinates are nonerythematous/nonedematous, Oral Mucosa is moist Cardio: NS1 and NS2, Sytolic Ejection Murmur in all sampson Resp: CTA B/L, NO R/R/W GI: BSx4, Soft, NT, NO HSM, NO guarding/rebound tenderness Ext: Pulses are strong and equal, Capillary Refill is 2 seconds, NO edema, Left Groin Cath Site without any evidence of cellulitis/hematoma Neuro: CN II through XII are grossly intact Assessments: 1). New Onset Atrial Fibrillation 2). NSTEMI S/P GAMAL Left Circumflex 3). Abdominal Aortic Aneurysm 4). HFrEF (Systolic Heart Failure) Chronic 5). HTN 6). Elevated D-Dimer 7). Bilateral Leg Pain 8). SOB 9). Hx of Smoking The patient has been cleared by Cardiology, Vascular Surgery, and Pulmonology for discharge. A copy of the following instructions will need to be provided to patient upon discharge and gone over with her: 1). Schedule follow up with your Primary Care Physician Dr. Miranda to take place in the next 7 to 10 day. Please bring all of your hospital discharge paperwork with your to your appointment with Dr. Miranda for his review. 2). Schedule follow up with Insurance Verification Specialist Dr. Talley to take place in the next 7 days by calling his office at [phone]. You will need to follow up with him for your abnormal heart rhythm (Atrial Fibrillation) and your heart stent placement. 3). Schedule follow up with Vascular Surgeon Dr. Iraheta to take place in the next 7 days by calling his office at [phone]. 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 4). Schedule follow up with Lung Physician Dr. Woodson to take place in the next 7 days by calling his office at [phone]. You will need to have your lung volumes measured. 5). The following [facility]. Please use them as directed: Eliquis 2.5 mg, 1 tablet by mouth 2 times a day (8AM and 8PM), Dispense #60, NO refills Advair 250/50 mcg, 1 puff inhalation by mouth 2 times a day (8AM and 8 PM), Dispense #1, NO refills Albuterol 90 mcg/actuation, 1 puff inhalation by mouth every 6 hours ONLY NEEDED for severe shortness of breath/wheezing Plavix 75 mg, 1 tablet by mouth 1 time a day (2 PM), Dispense #30, NO refills Vitamin D 50,000 Units, 1 tablet by mouth once a week on for 8 weeks, Dispense #8, NO refills Lasix 20 mg, 1 tablet by mouth 1 time a day (2 PM), Dispense #30, NO refills Lisinopril 5 mg, 1 tablet by mouth 1 time a day (2 PM), Dispense #30, NO refills Metoprolol Tartrate 50 mg, 1 tablet by mouth 2 times a day (8 AM and 8 PM), Dispense #60, NO refills Crestor 20 mg, 1 tablet by mouth 1 time a day (8 PM), Dispense #30, NO refills Metformin 500 mg, 1 tablet by mouth 1 time a day with breakfast (8 AM) starting on Sunday10/20/17, Dispense #30, NO refills 6). You must stop smoking. It will kill you. If you continue to smoke the stent that was placed in the artery of your heart has a high chance of closing leading to a heart attack. Call for resources and medication to help you stop. 7). You have Diabetes and that is why you were started on Metformin which you should begin with breakfast on Sunday10/20/17 as explained above. Please make sure to follow up with Dr. Miranda as you will need to be followed by a foot doctor and eye doctor at least once a year. Be careful of your sugar intake. 8). You have been placed on a blood thinner called Eliquis to help prevent the formation of blood clots because of your abnormal heart rhythm. You must be careful when performing activities and preventing falls as this medication has a high risk of bleeding when there is an injury. If you notice any abnormal bruising please make sure to contact Dr. Miranda's office. 9). Please take care and be well. Ken Dominguez D.O. Objective - Vital Signs/Intake and Output Vital Signs (last 24 hours): Temp Pulse Resp BP Pulse Ox 98.2 F 96 H 18 132/80 96 10/19/17 07:40 10/19/17 07:40 10/19/17 07:40 10/19/17 07:40 10/19/17 07:40 Intake and Output: 10/19/17 10/19/17 06:59 18:59 Intake Total 400 Balance 400 - Medications Medications: Current Medications Acetaminophen (Tylenol 325mg Tab) 650 mg PO Q6 PRN PRN Reason: Pain, moderate (4-7) Last Admin: 10/18/17 08:34 Dose: 650 mg Albuterol/Ipratropium (Duoneb 3 Mg/0.5 Mg (3 Ml) Ud) 3 ml INH RQ4 KEVEN Last Admin: 10/19/17 08:56 Dose: 3 ml Apixaban (Eliquis) 2.5 mg PO Q12H KEVEN Last Admin: 10/18/17 21:11 Dose: 2.5 mg Budesonide (Pulmicort Respules) 0.5 mg INH RQ12 KEVEN Last Admin: 10/19/17 08:56 Dose: 0.5 mg Clopidogrel Bisulfate (Plavix) 75 mg PO DAILY [facility] Last Admin: 10/18/17 11:16 Dose: 75 mg Dextrose (Dextrose 50% Inj) 50 ml IVP ONCE PRN PRN Reason: Hypoglycemia Dextrose (Dextrose 50% Inj) 0 ml IV STAT PRN; Protocol PRN Reason: Hypoglycemia Protocol Dextrose (Glutose 15) 0 gm PO ONCE PRN; Protocol PRN Reason: Hypoglycemia Protocol Docusate Sodium (Colace) 100 mg PO TID [facility] Last Admin: 10/18/17 17:24 Dose: 100 mg Ergocalciferol (Drisdol 50,000 Intl Units Cap) 1 cap PO Q7D [facility] Last Admin: 10/18/17 14:45 Dose: 1 cap Furosemide (Lasix) 20 mg IVP DAILY [facility] Last Admin: 10/18/17 11:17 Dose: 20 mg Glucagon (Glucagen Diagnostic Kit) 0 mg IM STAT PRN; Protocol PRN Reason: Hypoglycemia Protocol Dextrose (Dextrose 5% In Water 1000 Ml) 1,000 mls @ 0 mls/hr IV .Q0M PRN; Protocol; Per Protocol PRN Reason: Hypoglycemia Protocol Sodium Chloride (Sodium Chloride 0.45%) 1,000 mls @ 50 mls/hr IV .Q20H [facility] Last Admin: 10/18/17 11:16 Dose: 50 mls/hr Sodium Chloride (Sodium Chloride 0.9%) 1,000 mls @ 50 mls/hr IV .Q20H [facility] Last Admin: 10/18/17 16:55 Dose: 50 mls/hr Insulin Human Regular (Novolin R) 0 unit SC ACHS [facility] PRN Reason: Protocol Last Admin: 10/19/17 08:38 Dose: Not Given Lisinopril (Zestril) 5 mg PO DAILY [facility] Last Admin: 10/18/17 11:16 Dose: 5 mg Metoprolol Tartrate (Lopressor) 50 mg PO BID [facility] Last Admin: 10/18/17 17:24 Dose: 50 mg Nicotine (Nicoderm Cq) 1 patch TD DAILY [facility] Last Admin: 10/18/17 11:16 Dose: 1 patch Rosuvastatin Calcium (Crestor) 20 mg PO HS [facility] Last Admin: 10/18/17 21:11 Dose: 20 mg - Labs Labs: 10/19/17 07:41 10/19/17 07:41 PT 13.8 SECONDS (9.7-12.2) H 10/15/17 06:10 INR 1.3 10/15/17 06:10 APTT 34 SECONDS (21-34) D 10/17/17 17:21
--- NOTE | 2017-10-19 10:05 | CP.PCM.DIS ---
Provider - Provider Date of Admission: 10/12/17 12:25 Attending physician: Ken Dominguez MD Primary care physician: Dr. Miranda Consults: Dr. Mayank Woodson Time Spent in preparation of Discharge (in minutes): 45 Diagnosis - Discharge Diagnosis (1) Non-STEMI (non-ST elevated myocardial infarction) Status: Resolved (2) Atrial fibrillation with RVR Status: Acute (3) Systolic heart failure Status: Chronic (4) Elevated d-dimer Status: Acute (5) Leg pain, bilateral Status: Acute (6) Shortness of breath Status: Resolved (7) Thoracic aortic aneurysm without rupture Status: Chronic (8) Hypertension Status: Chronic (9) History of smoking Status: Chronic Hospital Course - Lab Results Lab Results: Most Recent Lab Values WBC 11.2 K/uL (4.8-10.8) H 10/19/17 07:41 RBC 3.68 Mil/uL (3.80-5.20) L 10/19/17 07:41 Hgb 10.7 g/dL (11.0-16.0) L 10/19/17 07:41 Hct 32.1 % (34.0-47.0) L 10/19/17 07:41 MCV 87.2 fL (81.0-99.0) 10/19/17 07:41 MCH 29.0 pg (27.0-31.0) 10/19/17 07:41 MCHC 33.3 g/dL (33.0-37.0) 10/19/17 07:41 RDW 14.6 % (11.5-14.5) H 10/19/17 07:41 Plt Count 478 K/uL (130-400) H 10/19/17 07:41 MPV 7.8 fL (7.2-11.7) 10/19/17 07:41 Neut % (Auto) 69.7 % (50.0-75.0) 10/19/17 07:41 Lymph % (Auto) 20.8 % (20.0-40.0) 10/19/17 07:41 [place] % (Auto) 7.2 % (0.0-10.0) 10/19/17 07:41 Eos % (Auto) 1.7 % (0.0-4.0) 10/19/17 07:41 Baso % (Auto) 0.6 % (0.0-2.0) 10/19/17 07:41 Neut # (Auto) 7.8 K/uL (1.8-7.0) H 10/19/17 07:41 Lymph # (Auto) 2.3 K/uL (1.0-4.3) 10/19/17 07:41 [place] # (Auto) 0.8 K/uL (0.0-0.8) 10/19/17 07:41 Eos # (Auto) 0.2 K/uL (0.0-0.7) 10/19/17 07:41 Baso # (Auto) 0.1 K/uL (0.0-0.2) 10/19/17 07:41 PT 13.8 SECONDS (9.7-12.2) H 10/15/17 06:10 INR 1.3 10/15/17 06:10 APTT 34 SECONDS (21-34) D 10/17/17 17:21 D-Dimer, Quantitative 1011 ng/mlDDU (0-243) H 10/12/17 13:48 Sodium 139 mmol/L (132-148) 10/19/17 07:41 Potassium 3.5 mmol/L (3.6-5.2) L 10/19/17 07:41 Chloride 102 mmol/L (98-107) 10/19/17 07:41 Carbon Dioxide 26 mmol/L (22-30) 10/19/17 07:41 Anion Gap 15 (10-20) 10/19/17 07:41 BUN 9 mg/dL (7-17) 10/19/17 07:41 Creatinine 0.6 mg/dL (0.7-1.2) L 10/19/17 07:41 Est GFR ( Amer) > 60 10/19/17 07:41 Est GFR (Non-Af Amer) > 60 10/19/17 07:41 POC Glucose (mg/dL) 157 mg/dL (65-110) H 10/18/17 21:07 Random Glucose 130 mg/dL (65-105) H 10/19/17 07:41 Hemoglobin A1c 6.8 % (4.2-6.5) H 10/13/17 08:06 Calcium 8.6 mg/dl (8.6-10.4) 10/19/17 07:41 Phosphorus 3.1 mg/dL (2.5-4.5) 10/19/17 07:41 Magnesium 2.1 mg/dL (1.6-2.3) 10/19/17 07:41 Total Bilirubin 0.4 mg/dL (0.2-1.3) 10/19/17 07:41 AST 24 U/L (14-36) 10/19/17 07:41 ALT 23 U/L (9-52) 10/19/17 07:41 Alkaline Phosphatase 87 U/L (38-126) 10/19/17 07:41 Total Creatine Kinase 55 U/L (30-135) 10/13/17 08:06 CK-MB (Mass) 1.60 ng/mL (0.0-3.38) 10/13/17 08:06 Troponin I 0.2580 ng/mL (0.00-0.120) H* 10/13/17 08:06 NT-Pro-B Natriuret Pep 952 pg/mL (0-900) H 10/12/17 11:34 Total Protein 6.7 g/dL (6.3-8.3) 10/19/17 07:41 Albumin 3.3 g/dL (3.5-5.0) L 10/19/17 07:41 Globulin 3.4 gm/dL (2.2-3.9) 10/19/17 07:41 Albumin/Globulin Ratio 1.0 (1.0-2.1) 10/19/17 07:41 Triglycerides 120 mg/dL (0-149) 10/13/17 08:06 Cholesterol 145 mg/dL (0-199) 10/13/17 08:06 LDL Cholesterol Direct 83 mg/dL (0-129) 10/13/17 08:06 HDL Cholesterol 26 mg/dL (30-70) L 10/13/17 08:06 25-OH Vitamin D Total < 12.8 NG/ML (30.0-100.0) L 10/18/17 07:13 Free T4 1.31 ng/dL (0.78-2.19) 10/12/17 13:48 TSH 3rd Generation 1.06 mIU/L (0.46-4.68) 10/13/17 08:06 - Date & Time of H&P Date of H&P: 10/12/17 Time of H&P: 13:12 Discharge Exam - Head Exam Head Exam: ATRAUMATIC, NORMAL INSPECTION Discharge Plan - Discharge Medications Prescriptions: Albuterol HFA [Ventolin HFA 90 mcg/actuation (8 g)] 1 puff IH Q6H #1 inhaler Apixaban [Eliquis] 2.5 mg PO Q12H #60 tab Clopidogrel [Plavix] 75 mg PO DAILY #30 tab Ergocalciferol [Drisdol 50,000 Intl Units Cap] 1 cap PO Q7D #8 cap Fluticasone/Salmeterol [Advair 250-50 Diskus] 1 each IH BID #1 blst.w.dev Furosemide [Lasix] 20 mg PO DAILY #30 tablet Lisinopril [Zestril] 5 mg PO DAILY #30 tab metFORMIN [glucOPHAGE] 500 mg PO DAILY #30 tab Metoprolol Tartrate [Lopressor] 50 mg PO BID #60 tab Rosuvastatin Calcium [Crestor] 20 mg PO HS #30 tab - Follow Up Plan Condition: FAIR Disposition: HOME/ ROUTINE Instructions: Atrial Fibrillation, Heart Healthy Diet, Diabetes Exchange Diet, Thoracic Aortic Aneurysm, Heart Failure, Adult (DC), Carbohydrate Counting Diet , Heart Attack (DC), Shortness of Breath (Dyspnea) (DC), Diabetes Diet Additional Instructions: The patient has been cleared by Cardiology, Vascular Surgery, and Pulmonology for discharge. A copy of the following instructions will need to be provided to patient upon discharge and gone over with her: 1). Schedule follow up with your Primary Care Physician Dr. Miranda to take place in the next 7 to 10 day. Please bring all of your hospital discharge paperwork with your to your appointment with Dr. Miranda for his review. 2). Schedule follow up with [employer] Adjuster Dr. Talley to take place in the next 7 days by calling his office at [phone]. You will need to follow up with him for your abnormal heart rhythm (Atrial Fibrillation) and your heart stent placement. 3). Schedule follow up with Vascular Surgeon Dr. Iraheta to take place in the next 7 days by calling his office at [phone]. 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 4). Schedule follow up with Lung Physician Dr. Woodson to take place in the next 7 days by calling his office at [phone]. You will need to have your lung volumes measured. 5). The following prescriptions will need to be filled at your phramacy on your way home from the hospital. Please use them as directed: Eliquis 2.5 mg, 1 tablet by mouth 2 times a day (8AM and 8PM), Dispense #60, NO refills Advair 250/50 mcg, 1 puff inhalation by mouth 2 times a day (8AM and 8 PM), Dispense #1, NO refills Albuterol 90 mcg/actuation, 1 puff inhalation by mouth every 6 hours ONLY NEEDED for severe shortness of breath/wheezing Plavix 75 mg, 1 tablet by mouth 1 time a day (2 PM), Dispense #30, NO refills Vitamin D 50,000 Units, 1 tablet by mouth once a week on for 8 weeks, Dispense #8, NO refills Lasix 20 mg, 1 tablet by mouth 1 time a day (2 PM), Dispense #30, NO refills Lisinopril 5 mg, 1 tablet by mouth 1 time a day (2 PM), Dispense #30, NO refills Metoprolol Tartrate 50 mg, 1 tablet by mouth 2 times a day (8 AM and 8 PM), Dispense #60, NO refills Crestor 20 mg, 1 tablet by mouth 1 time a day (8 PM), Dispense #30, NO refills Metformin 500 mg, 1 tablet by mouth 1 time a day with breakfast (8 AM) starting on Sunday10/20/17, Dispense #30, NO refills 6). You must stop smoking. It will kill you. If you continue to smoke the stent that was placed in the artery of your heart has a high chance of closing leading to a heart attack. Call for resources and medication to help you stop. 7). You have Diabetes and that is why you were started on Metformin which you should begin with breakfast on Sunday10/20/17 as explained above. Please make sure to follow up with Dr. Miranda as you will need to be followed by a foot doctor and eye doctor at least once a year. Be careful of your sugar intake. 8). You have been placed on a blood thinner called Eliquis to help prevent the formation of blood clots because of your abnormal heart rhythm. You must be careful when performing activities and preventing falls as this medication has a high risk of bleeding when there is an injury. If you notice any abnormal bruising please make sure to contact Dr. Miranda's office. 9). Please take care and be well. Ken Dominguez D.O. Referrals: Scooby Talley MD [Staff Provider] - Hammad Iraheta Jr., MD [Staff Provider] - Hosea Woodson MD [Staff Provider] -
--- NOTE | 2017-10-19 10:53 | CT ---
Date of service: 10/18/2017 PROCEDURE: CT Angiography Abdomen, Pelvis and Lower Extremity with Contrast HISTORY: AAA pre op measurements COMPARISON: None available. TECHNIQUE: Technique: CT angiography of the abdomen, pelvis and bilateral lower extremities performed in the arterial phase of enhancement. Coronal and sagittal reformats, and well as rotating MIP images of the vessels generated at the workstation. Intravenous contrast dose: 150 MILLILITERS VISIPAQUE 320 Radiation dose: Total exam DLP = 3338.94 MGy-cm. This CT exam was performed using one or more of the following dose reduction techniques: Automated exposure control, adjustment of the mA and/or kV according to patient size, and/or use of iterative reconstruction technique. FINDINGS: CT ANGIOGRAPHY: ABDOMINAL AORTA:: The abdominal aorta is ectatic. There is infrarenal aortic aneurysm beginning approximately 1.2 centimeters below the left renal artery and continuing to 3 centimeters proximal to bifurcation. The aneurysm measures 5.9 centimeters. There is aneurysmal dilatation of the right common iliac artery measuring 2 centimeters. MAJOR AORTIC BRANCHES: Celiac [place]wall: Unremarkable. Superior mesenteric artery: Unremarkable. Inferior mesenteric artery: Unremarkable. Renal arteries: Unremarkable. PELVIC ARTERIES: Right Common Iliac: Aneurysmal dilatation right common iliac artery measuring 2 centimeters Right External Iliac: Unremarkable. Right Internal Iliac: Unremarkable. Left Common Iliac: Unremarkable. Left External Iliac: Unremarkable. Left Internal Iliac: Unremarkable. RIGHT LOWER EXTREMITY ARTERIES: Right Common Femoral: Unremarkable. Right Superficial Femoral: Unremarkable. Right Profunda Femoris: Unremarkable. Right Popliteal:Unremarkable. Right Anterior Tibial: Unremarkable. Right Tibioperoneal Trunk: Unremarkable. Right Posterior Tibial: Unremarkable. Right Peroneal: Unremarkable. Right dorsalis pedis : Unremarkable. LEFT LOWER EXTREMITY ARTERIES: Left Common Femoral: Unremarkable. Left Superficial Femoral: Unremarkable. Left Profunda Femoris: Unremarkable. Left Popliteal: Unremarkable. Left Anterior Tibial: Unremarkable. Left Tibioperoneal Trunk: Unremarkable. Left Posterior Tibial: Unremarkable. Left Peronea: Unremarkable. Left Dorsalis pedis: Unremarkable. NON-ANGIOGRAPHIC ASPECT OF THE EXAM: LOWER THORAX: Unremarkable. LIVER: Unremarkable. No gross lesion or ductal dilatation. GALLBLADDER AND BILE DUCTS: Unremarkable. PANCREAS: Unremarkable. No gross lesion or ductal dilatation. SPLEEN: Unremarkable. ADRENALS: Unremarkable. No mass. KIDNEYS AND URETERS: Unremarkable. No hydronephrosis. No solid mass. STOMACH AND BOWEL: Limited evaluation of PO contrast. No obstruction. No gross mural thickening. APPENDIX: Normal appendix. PERITONEUM: Unremarkable. No free fluid. No free air. LYMPH NODES: Unremarkable. No enlarged lymph nodes. BLADDER: Unremarkable. REPRODUCTIVE: Unremarkable. BONES: No acute fracture. OTHER FINDINGS: None. IMPRESSION: CT ANGIOGRAM CHEST: 1. Ascending aortic aneurysm which is eccentric and adjacent to the origin of the right innominate artery. The aorta measures 5.8 centimeters in this segment. The ascending aorta measures 4.6 centimeters. The descending thoracic aorta is unremarkable. CT ANGIOGRAM ABDOMEN/PELVIS: 1. Ectatic abdominal aorta. Infrarenal fusiform aortic aneurysm beginning 1.2 centimeters distal to the left renal artery contains a 3 centimeters proximal to the bifurcation. Aneurysm measures 5.9 centimeters 2. 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 The right external and internal iliac arteries are unremarkable. The left common iliac artery, external iliac artery and internal iliac artery are unremarkable. CT ANGIOGRAM RIGHT LOWER EXTREMITY: 1. Unremarkable CT angiogram of the right lower extremity. There are no aneurysms or peripheral arterial disease. CT ANGIOGRAM LEFT LOWER EXTREMITY: 1. Unremarkable CT angiogram of the left lower extremity. There are no aneurysms or peripheral arterial disease.
--- NOTE | 2017-10-19 11:06 | CT ---
Date of service: 10/18/2017 PROCEDURE: CT Chest with contrast HISTORY: TAA sizing COMPARISON: None available. TECHNIQUE: Contiguous axial images were obtained through the chest with intravenous contrast enhancement. Sagittal and coronal reconstructions were performed. IV contrast: 150 milliliters Visipaque 320 Radiation dose (DLP): 3338.94 MGy-cm. This CT exam was performed using one or more of the following dose reduction techniques: Automated exposure control, adjustment of the mA and/or kV according to patient size, and/or use of iterative reconstruction technique. FINDINGS: LUNGS: Clear lungs. Visualized airway clear. MEDIASTINUM: Ascending aortic aneurysm. Ascending aorta measures 4.6 centimeters. 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 The aorta measures 5.8 centimeters at this level. The ulcerative aneurysm is a new finding since the previous study 10/10/2017. Descending thoracic aorta is unremarkable. Normal sized heart. Main pulmonary artery unremarkable. No vascular congestion. No lymphadenopathy. PLEURA: No pleural fluid. No pneumothorax. BONES: No fracture. No destructive lesion. UPPER ABDOMEN: Grossly unremarkable. OTHER FINDINGS: IMPRESSION: Ascending aortic aneurysm. Ascending aorta measures 4.6 centimeters. 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 The aorta measures 5.8 centimeters at this level (SEEN BEST ON THE CORONAL REFORMATTED IMAGES). The ulcerative aneurysm is a new finding since the previous study 10/10/2017. Descending thoracic aorta is unremarkable. Findings were communicated to the ordering physician.
[2017-10-19] MEDS ORDERED: POLYETHYLENE GLYCOL 3350 17 GM/Dose PACKET PO ONE (14:51)
[2017-10-19 16:56] VITALS: RESP 20
--- NOTE | 2017-10-19 17:28 | CP.PCM.PN ---
Subjective - Date & Time of Evaluation Date of Evaluation: 10/19/17 Time of Evaluation: 12:30 - Subjective Subjective: Vascular Surgery Progress Note for Dr. Iraheta Patient was seen and examined today at bedside in no acute distress. Nurse reports no overnight events. Patient has no new complaints. Denies CP, SOB, n/v , f/c, c/d. Objective - Vital Signs/Intake and Output Vital Signs (last 24 hours): Temp Pulse Resp BP Pulse Ox 99.1 F 111 H 20 161/82 H 93 L 10/19/17 15:20 10/19/17 16:00 10/19/17 15:20 10/19/17 15:20 10/19/17 15:20 Intake and Output: 10/19/17 10/19/17 06:59 18:59 Intake Total 400 Balance 400 - Medications Medications: Current Medications Acetaminophen (Tylenol 325mg Tab) 650 mg PO Q6 PRN PRN Reason: Pain, moderate (4-7) Last Admin: 10/19/17 17:24 Dose: 650 mg Albuterol/Ipratropium (Duoneb 3 Mg/0.5 Mg (3 Ml) Ud) 3 ml INH RQ4 [facility] Last Admin: 10/19/17 16:53 Dose: 3 ml Apixaban (Eliquis) 2.5 mg PO Q12H [facility] Last Admin: 10/19/17 10:35 Dose: 2.5 mg Budesonide (Pulmicort Respules) 0.5 mg INH RQ12 [facility] Last Admin: 10/19/17 08:56 Dose: 0.5 mg Clopidogrel Bisulfate (Plavix) 75 mg PO DAILY [facility] Last Admin: 10/19/17 10:36 Dose: 75 mg Dextrose (Dextrose 50% Inj) 50 ml IVP ONCE PRN PRN Reason: Hypoglycemia Dextrose (Dextrose 50% Inj) 0 ml IV STAT PRN; Protocol PRN Reason: Hypoglycemia Protocol Dextrose (Glutose 15) 0 gm PO ONCE PRN; Protocol PRN Reason: Hypoglycemia Protocol Docusate Sodium (Colace) 100 mg PO TID [facility] Last Admin: 10/19/17 17:17 Dose: 100 mg Ergocalciferol (Drisdol 50,000 Intl Units Cap) 1 cap PO Q7D [facility] Last Admin: 10/18/17 14:45 Dose: 1 cap Furosemide (Lasix) 20 mg IVP DAILY [facility] Last Admin: 10/19/17 10:36 Dose: 20 mg Glucagon (Glucagen Diagnostic Kit) 0 mg IM STAT PRN; Protocol PRN Reason: Hypoglycemia Protocol Dextrose (Dextrose 5% In Water 1000 Ml) 1,000 mls @ 0 mls/hr IV .Q0M PRN; Protocol; Per Protocol PRN Reason: Hypoglycemia Protocol Insulin Human Regular (Novolin R) 0 unit SC ACHS [facility] PRN Reason: Protocol Last Admin: 10/19/17 16:48 Dose: Not Given Lisinopril (Zestril) 5 mg PO DAILY [facility] Last Admin: 10/19/17 10:36 Dose: 5 mg Metoprolol Tartrate (Lopressor) 50 mg PO BID [facility] Last Admin: 10/19/17 17:17 Dose: 50 mg Nicotine (Nicoderm Cq) 1 patch TD DAILY [facility] Last Admin: 10/19/17 10:35 Dose: 1 patch Rosuvastatin Calcium (Crestor) 20 mg PO HS [facility] Last Admin: 10/18/17 21:11 Dose: 20 mg - Labs Labs: 10/19/17 07:41 10/19/17 07:41 PT 13.8 SECONDS (9.7-12.2) H 10/15/17 06:10 INR 1.3 10/15/17 06:10 APTT 34 SECONDS (21-34) D 10/17/17 17:21 - Constitutional Appears: Non-toxic, No Acute Distress - Head Exam Head Exam: ATRAUMATIC, NORMOCEPHALIC - Eye Exam Eye Exam: EOMI, Normal appearance - ENT Exam ENT Exam: Mucous Membranes Moist, Normal Exam - Respiratory Exam Respiratory Exam: NORMAL BREATHING PATTERN. absent: Rales, Rhonchi - Cardiovascular Exam Cardiovascular Exam: +S1, +S2. absent: Murmur Additional comments: palpable abdominal aneurysm 2 in left of the umbilicus - GI/Abdominal Exam GI & Abdominal Exam: Soft, Normal Bowel Sounds, Pulsatile Mass. absent: Tenderness - Extremities Exam Extremities Exam: Normal Capillary Refill. absent: Tenderness Additional comments: peripheral pulses palpable bilaterally (PT, DP, radial) - Neurological Exam Neurological Exam: Alert, Awake, Oriented x3 - Psychiatric Exam Psychiatric exam: Normal Affect, Normal Mood - Skin Skin Exam: Dry, Intact, Normal Color, Warm Assessment and Plan - Assessment and Plan (Free Text) Assessment: 66yoF with ascending aortic aneurysm and abdominal aortic aneurysm Plan: - CTA appreciated: new ulcerative aneurysm of ascending aorta - Abdominal Angiography appreciated - repeat CTA chest scheduled for tomorrow AM - may follow-up outpt for abdominal aortic aneurysm for planning of endovascular repair - CT surgery consulted - scheduled for transfer to [facility] for CT surgery eval, accepting physician: Dr. Orozco - further recs per Dr. Myrtle Cosme PGY1
[2017-10-20] MEDS: Albuterol-Ipratrop 3 mg / 0.5 (3 ml) UD INH SCH ×5 (00:42→16:23)
--- NOTE | 2017-10-20 06:25 | CP.PCM.PN ---
Subjective - Date & Time of Evaluation Date of Evaluation: 10/19/17 Time of Evaluation: 18:10 - Subjective Subjective: Patient seen and evaluated Gibraneis chest pain and dyspnea patient has ulcerated ascending Aortic aneurysm Patient advised CT surgery Patient and family agreed and EMTALA signed D/W Patient's daughter oveer the phone Patient to be transferred to [facility] tomorrow for planned surgery on Sunday ( Ascending Aortic aneurysm repair) Hold Plavix Continue ASA 81 and DVT prophylaxis Objective - Vital Signs/Intake and Output Vital Signs (last 24 hours): Temp Pulse Resp BP Pulse Ox 98.5 F 83 20 150/76 89 L 10/19/17 23:45 10/19/17 23:45 10/19/17 23:45 10/19/17 23:45 10/19/17 23:45 - Medications Medications: Current Medications Acetaminophen (Tylenol 325mg Tab) 650 mg PO Q6 PRN PRN Reason: Pain, moderate (4-7) Last Admin: 10/19/17 17:24 Dose: 650 mg Albuterol/Ipratropium (Duoneb 3 Mg/0.5 Mg (3 Ml) Ud) 3 ml INH RQ4 [facility] Last Admin: 10/20/17 03:57 Dose: Not Given Apixaban (Eliquis) 2.5 mg PO Q12H [facility] Last Admin: 10/19/17 21:27 Dose: 2.5 mg Budesonide (Pulmicort Respules) 0.5 mg INH RQ12 [facility] Last Admin: 10/19/17 20:21 Dose: 0.5 mg Clopidogrel Bisulfate (Plavix) 75 mg PO DAILY [facility] Last Admin: 10/19/17 10:36 Dose: 75 mg Dextrose (Dextrose 50% Inj) 50 ml IVP ONCE PRN PRN Reason: Hypoglycemia Dextrose (Dextrose 50% Inj) 0 ml IV STAT PRN; Protocol PRN Reason: Hypoglycemia Protocol Dextrose (Glutose 15) 0 gm PO ONCE PRN; Protocol PRN Reason: Hypoglycemia Protocol Docusate Sodium (Colace) 100 mg PO TID [facility] Last Admin: 10/19/17 17:17 Dose: 100 mg Ergocalciferol (Drisdol 50,000 Intl Units Cap) 1 cap PO Q7D [facility] Last Admin: 10/18/17 14:45 Dose: 1 cap Furosemide (Lasix) 20 mg IVP DAILY [facility] Last Admin: 10/19/17 10:36 Dose: 20 mg Glucagon (Glucagen Diagnostic Kit) 0 mg IM STAT PRN; Protocol PRN Reason: Hypoglycemia Protocol Dextrose (Dextrose 5% In Water 1000 Ml) 1,000 mls @ 0 mls/hr IV .Q0M PRN; Protocol; Per Protocol PRN Reason: Hypoglycemia Protocol Insulin Human Regular (Novolin R) 0 unit SC ACHS [facility] PRN Reason: Protocol Last Admin: 10/19/17 16:48 Dose: Not Given Lisinopril (Zestril) 5 mg PO DAILY [facility] Last Admin: 10/19/17 10:36 Dose: 5 mg Metoprolol Tartrate (Lopressor) 50 mg PO BID [facility] Last Admin: 10/19/17 17:17 Dose: 50 mg Nicotine (Nicoderm Cq) 1 patch TD DAILY [facility] Last Admin: 10/19/17 10:35 Dose: 1 patch Rosuvastatin Calcium (Crestor) 20 mg PO HS [facility] Last Admin: 10/19/17 21:27 Dose: 20 mg - Labs Labs: 10/19/17 07:41 10/19/17 07:41 PT 13.8 SECONDS (9.7-12.2) H 10/15/17 06:10 INR 1.3 10/15/17 06:10 APTT 34 SECONDS (21-34) D 10/17/17 17:21
[2017-10-20 07:20] LABS: BASO % 0.4 % (0.0-2.0); EOS # 0.2 K/uL (0.0-0.7); EOS % 2.1 % (0.0-4.0); HEMOGLOBIN 11.1 g/dL (11.0-16.0); LYMPH # 2.3 K/uL (1.0-4.3); MEAN CELL VOLUME 87.6 fL (81.0-99.0); MEAN CORPUSCULAR HEMOGLOBIN 29.5 pg (27.0-31.0); MEAN CORPUSCULAR HGB CONC 33.7 g/dL (33.0-37.0); MEAN PLATELET VOLUME 7.6 fL (7.2-11.7); MONO # 0.9 K/uL (0.0-0.8); NEUT # 8.1 K/uL (1.8-7.0); NEUT % 69.5 % (50.0-75.0); RBC 3.76 Mil/uL (3.80-5.20); RED CELL DISTRIBUTION WIDTH 14.5 % (11.5-14.5); WHITE BLOOD COUNT 11.7 K/uL (4.8-10.8)
[2017-10-20] MEDS: (Novolin R) Insulin Human Regular 100 units/ml vial SC SCH ×2 (07:24→12:27)
[2017-10-20] MEDS: Budesonide 0.5 mg/2 ml Inhal Susp UD INH SCH (07:33)
[2017-10-20 07:57] LABS: ALBUMIN 3.5 g/dL (3.5-5.0); ALT/SGPT 21 U/L (9-52); AST/SGOT 17 U/L (14-36); BLOOD UREA NITROGEN 10 mg/dL (7-17); GFR AFRICAN-AMERICAN > 60; GFR NON-AFRICAN AMERICAN > 60
--- NOTE | 2017-10-20 08:41 | CP.PCM.PN ---
Subjective - Date & Time of Evaluation Date of Evaluation: 10/20/17 Time of Evaluation: 08:30 - Subjective Subjective: Hospitalist Progress Note Patient was seen and examined at 8:30 AM 10/20/17 665 B Upon FULL ROS NO dysphagia/odynopahgia NO soreness in throat NO cough NO sinus/nasal congestion NO fever/chills NO muscle aches/pains NO joint pain NO chest pain/palpations NO SOB NO abdominal pain NO n/v/d/c NO burning pain with urination NO BLANTON NO lightheadedness/dizziness NO paresthesias Exam: General: AAOX3, NAD HEENT: NCA, EOMI, PERRLA, NO cervical/supraclavicular/submandibular lymphadenopathy, NO pharyngeal erythema/exudate, Nasal Turbinates are nonerythematous/nonedematous, Oral Mucosa is moist Cardio: NS1 and NS2, Sytolic Ejection Murmur in all sampson Resp: CTA B/L, NO R/R/W GI: BSx4, Soft, NT, NO HSM, NO guarding/rebound tenderness Ext: Pulses are strong and equal, Capillary Refill is 2 seconds, NO edema, Left Groin Cath Site without any evidence of cellulitis/hematoma Neuro: CN II through XII are grossly intact Assessments: 1). New Onset Atrial Fibrillation 2). NSTEMI S/P GAMAL Left Circumflex 3). Ascending Aortic Aneurysm 4). HFrEF (Systolic Heart Failure) Chronic 5). HTN 6). Elevated D-Dimer 7). Bilateral Leg Pain 8). SOB 9). Hx of Smoking 10). New Onset DM 2 Patient is scheduled for Ascending Aortic Aneurysm repair with Cardio Throcic Surgery Dr. Orozco [place] [facility] [place] Talley has already made arrangements for transfer and informed patient and her family Awaiting for bed at [facility] [place] be made available Holding patient's Eliquis and Plavix She is to be continued on ASA and Lovenox (for DVT prophylaxis) as per my conversation with Dr. Talley Patient will be discharged [place] [facility] once she is stable Objective - Vital Signs/Intake and Output Vital Signs (last 24 hours): Temp Pulse Resp BP Pulse Ox 98.5 F 99 H 20 150/76 89 L 10/19/17 23:45 10/20/17 08:00 10/19/17 23:45 10/19/17 23:45 10/19/17 23:45 - Medications Medications: Current Medications Acetaminophen (Tylenol 325mg Tab) 650 mg PO Q6 PRN PRN Reason: Pain, moderate (4-7) Last Admin: 10/19/17 17:24 Dose: 650 mg Albuterol/Ipratropium (Duoneb 3 Mg/0.5 Mg (3 Ml) Ud) 3 ml INH RQ4 [facility] Last Admin: 10/20/17 07:33 Dose: 3 ml Aspirin (Ecotrin) 81 mg PO DAILY [facility] Budesonide (Pulmicort Respules) 0.5 mg INH RQ12 [facility] Last Admin: 10/20/17 07:33 Dose: 0.5 mg Dextrose (Dextrose 50% Inj) 50 ml IVP ONCE PRN PRN Reason: Hypoglycemia Dextrose (Dextrose 50% Inj) 0 ml IV STAT PRN; Protocol PRN Reason: Hypoglycemia Protocol Dextrose (Glutose 15) 0 gm PO ONCE PRN; Protocol PRN Reason: Hypoglycemia Protocol Docusate Sodium (Colace) 100 mg PO TID [facility] Last Admin: 10/19/17 17:17 Dose: 100 mg Enoxaparin Sodium (Lovenox) 40 mg SC DAILY [facility] Ergocalciferol (Drisdol 50,000 Intl Units Cap) 1 cap PO Q7D [facility] Last Admin: 10/18/17 14:45 Dose: 1 cap Furosemide (Lasix) 20 mg IVP DAILY [facility] Last Admin: 10/19/17 10:36 Dose: 20 mg Glucagon (Glucagen Diagnostic Kit) 0 mg IM STAT PRN; Protocol PRN Reason: Hypoglycemia Protocol Dextrose (Dextrose 5% In Water 1000 Ml) 1,000 mls @ 0 mls/hr IV .Q0M PRN; Protocol; Per Protocol PRN Reason: Hypoglycemia Protocol Insulin Human Regular (Novolin R) 0 unit SC ACHS [facility] PRN Reason: Protocol Last Admin: 10/20/17 07:24 Dose: Not Given Lisinopril (Zestril) 5 mg PO DAILY [facility] Last Admin: 10/19/17 10:36 Dose: 5 mg Metoprolol Tartrate (Lopressor) 50 mg PO BID [facility] Last Admin: 10/19/17 17:17 Dose: 50 mg Nicotine (Nicoderm Cq) 1 patch TD DAILY [facility] Last Admin: 10/19/17 10:35 Dose: 1 patch Rosuvastatin Calcium (Crestor) 20 mg PO HS [facility] Last Admin: 10/19/17 21:27 Dose: 20 mg - Labs Labs: 10/20/17 07:09 10/20/17 07:09 PT 13.8 SECONDS (9.7-12.2) H 10/15/17 06:10 INR 1.3 10/15/17 06:10 APTT 34 SECONDS (21-34) D 10/17/17 17:21
[2017-10-20] MEDS ORDERED: Enoxaparin 40 mg Syringe SC SCH (10:00)
--- NOTE | 2017-10-20 11:04 | CP.PCM.PN ---
Subjective - Date & Time of Evaluation Date of Evaluation: 10/20/17 Time of Evaluation: 11:04 - Subjective Subjective: awaiting fu study Objective - Vital Signs/Intake and Output Vital Signs (last 24 hours): Temp Pulse Resp BP Pulse Ox 98.5 F 99 H 20 134/76 89 L 10/19/17 23:45 10/20/17 08:00 10/19/17 23:45 10/20/17 09:30 10/19/17 23:45 - Medications Medications: Current Medications Acetaminophen (Tylenol 325mg Tab) 650 mg PO Q6 PRN PRN Reason: Pain, moderate (4-7) Last Admin: 10/20/17 10:56 Dose: 650 mg Albuterol/Ipratropium (Duoneb 3 Mg/0.5 Mg (3 Ml) Ud) 3 ml INH RQ4 [facility] Last Admin: 10/20/17 07:33 Dose: 3 ml Aspirin (Ecotrin) 81 mg PO DAILY [facility] Last Admin: 10/20/17 09:30 Dose: 81 mg Budesonide (Pulmicort Respules) 0.5 mg INH RQ12 [facility] Last Admin: 10/20/17 07:33 Dose: 0.5 mg Dextrose (Dextrose 50% Inj) 50 ml IVP ONCE PRN PRN Reason: Hypoglycemia Dextrose (Dextrose 50% Inj) 0 ml IV STAT PRN; Protocol PRN Reason: Hypoglycemia Protocol Dextrose (Glutose 15) 0 gm PO ONCE PRN; Protocol PRN Reason: Hypoglycemia Protocol Docusate Sodium (Colace) 100 mg PO TID [facility] Last Admin: 10/20/17 09:30 Dose: 100 mg Enoxaparin Sodium (Lovenox) 40 mg SC DAILY [facility] Last Admin: 10/20/17 09:30 Dose: 40 mg Ergocalciferol (Drisdol 50,000 Intl Units Cap) 1 cap PO Q7D [facility] Last Admin: 10/18/17 14:45 Dose: 1 cap Furosemide (Lasix) 20 mg IVP DAILY [facility] Last Admin: 10/20/17 09:30 Dose: 20 mg Glucagon (Glucagen Diagnostic Kit) 0 mg IM STAT PRN; Protocol PRN Reason: Hypoglycemia Protocol Dextrose (Dextrose 5% In Water 1000 Ml) 1,000 mls @ 0 mls/hr IV .Q0M PRN; Protocol; Per Protocol PRN Reason: Hypoglycemia Protocol Insulin Human Regular (Novolin R) 0 unit SC ACHS [facility] PRN Reason: Protocol Last Admin: 10/20/17 07:24 Dose: Not Given Lisinopril (Zestril) 5 mg PO DAILY [facility] Last Admin: 10/20/17 09:30 Dose: 5 mg Metoprolol Tartrate (Lopressor) 50 mg PO BID [facility] Last Admin: 10/20/17 09:30 Dose: 50 mg Nicotine (Nicoderm Cq) 1 patch TD DAILY [facility] Last Admin: 10/20/17 09:30 Dose: 1 patch Rosuvastatin Calcium (Crestor) 20 mg PO HS [facility] Last Admin: 10/19/17 21:27 Dose: 20 mg - Labs Labs: 10/20/17 07:09 10/20/17 07:09 PT 13.8 SECONDS (9.7-12.2) H 10/15/17 06:10 INR 1.3 10/15/17 06:10 APTT 34 SECONDS (21-34) D 10/17/17 17:21
[2017-10-20] MEDS ORDERED: Iodixanol 320 MG/ML 100 ML BOTTLE IV ONE (11:19)
[2017-10-20 16:47] VITALS: PULSE 93
[2017-10-20 17:24] VITALS: BP 143/85; TEMP 98.2; O2SAT 95
--- NOTE | 2017-10-20 20:22 | CP.PCM.DIS ---
Provider - Provider Date of Admission: 10/12/17 12:25 Attending physician: Ken Dominguez MD Consults: Cardiology- Dr. Talley Pulblair- Dr. Woodson Vascular Surgery- Dr. Iraheta Time Spent in preparation of Discharge (in minutes): 35 Diagnosis - Discharge Diagnosis (1) Atrial fibrillation with RVR Status: Acute (2) Dyspnea Status: Acute (3) Hypertension Status: Chronic (4) Prophylactic measure Status: Acute Hospital Course - Lab Results Lab Results: Most Recent Lab Values WBC 11.7 K/uL (4.8-10.8) H 10/20/17 07:09 RBC 3.76 Mil/uL (3.80-5.20) L 10/20/17 07:09 Hgb 11.1 g/dL (11.0-16.0) 10/20/17 07:09 Hct 32.9 % (34.0-47.0) L 10/20/17 07:09 MCV 87.6 fL (81.0-99.0) 10/20/17 07:09 MCH 29.5 pg (27.0-31.0) 10/20/17 07:09 MCHC 33.7 g/dL (33.0-37.0) 10/20/17 07:09 RDW 14.5 % (11.5-14.5) 10/20/17 07:09 Plt Count 557 K/uL (130-400) H 10/20/17 07:09 MPV 7.6 fL (7.2-11.7) 10/20/17 07:09 Neut % (Auto) 69.5 % (50.0-75.0) 10/20/17 07:09 Lymph % (Auto) 20.0 % (20.0-40.0) 10/20/17 07:09 Toole % (Auto) 8.0 % (0.0-10.0) 10/20/17 07:09 Eos % (Auto) 2.1 % (0.0-4.0) 10/20/17 07:09 Baso % (Auto) 0.4 % (0.0-2.0) 10/20/17 07:09 Neut # (Auto) 8.1 K/uL (1.8-7.0) H 10/20/17 07:09 Lymph # (Auto) 2.3 K/uL (1.0-4.3) 10/20/17 07:09 Toole # (Auto) 0.9 K/uL (0.0-0.8) H 10/20/17 07:09 Eos # (Auto) 0.2 K/uL (0.0-0.7) 10/20/17 07:09 Baso # (Auto) 0.0 K/uL (0.0-0.2) 10/20/17 07:09 PT 13.8 SECONDS (9.7-12.2) H 10/15/17 06:10 INR 1.3 10/15/17 06:10 APTT 34 SECONDS (21-34) D 10/17/17 17:21 D-Dimer, Quantitative 1011 ng/mlDDU (0-243) H 10/12/17 13:48 Sodium 140 mmol/L (132-148) 10/20/17 07:09 Potassium 3.9 mmol/L (3.6-5.2) 10/20/17 07:09 Chloride 101 mmol/L (98-107) 10/20/17 07:09 Carbon Dioxide 26 mmol/L (22-30) 10/20/17 07:09 Anion Gap 17 (10-20) 10/20/17 07:09 BUN 10 mg/dL (7-17) 10/20/17 07:09 Creatinine 0.7 mg/dL (0.7-1.2) 10/20/17 07:09 Est GFR ( Amer) > 60 10/20/17 07:09 Est GFR (Non-Af Amer) > 60 10/20/17 07:09 POC Glucose (mg/dL) 119 mg/dL (65-110) H 10/19/17 16:19 Random Glucose 168 mg/dL (65-105) H 10/20/17 07:09 Hemoglobin A1c 6.8 % (4.2-6.5) H 10/13/17 08:06 Calcium 9.0 mg/dl (8.6-10.4) 10/20/17 07:09 Phosphorus 3.5 mg/dL (2.5-4.5) 10/20/17 07:09 Magnesium 2.0 mg/dL (1.6-2.3) 10/20/17 07:09 Total Bilirubin 0.4 mg/dL (0.2-1.3) 10/20/17 07:09 AST 17 U/L (14-36) 10/20/17 07:09 ALT 21 U/L (9-52) 10/20/17 07:09 Alkaline Phosphatase 90 U/L (38-126) 10/20/17 07:09 Total Creatine Kinase 55 U/L (30-135) 10/13/17 08:06 CK-MB (Mass) 1.60 ng/mL (0.0-3.38) 10/13/17 08:06 Troponin I 0.2580 ng/mL (0.00-0.120) H* 10/13/17 08:06 NT-Pro-B Natriuret Pep 952 pg/mL (0-900) H 10/12/17 11:34 Total Protein 7.2 g/dL (6.3-8.3) 10/20/17 07:09 Albumin 3.5 g/dL (3.5-5.0) 10/20/17 07:09 Globulin 3.6 gm/dL (2.2-3.9) 10/20/17 07:09 Albumin/Globulin Ratio 1.0 (1.0-2.1) 10/20/17 07:09 Triglycerides 120 mg/dL (0-149) 10/13/17 08:06 Cholesterol 145 mg/dL (0-199) 10/13/17 08:06 LDL Cholesterol Direct 83 mg/dL (0-129) 10/13/17 08:06 HDL Cholesterol 26 mg/dL (30-70) L 10/13/17 08:06 25-OH Vitamin D Total < 12.8 NG/ML (30.0-100.0) L 10/18/17 07:13 Free T4 1.31 ng/dL (0.78-2.19) 10/12/17 13:48 TSH 3rd Generation 1.06 mIU/L (0.46-4.68) 10/13/17 08:06 - Hospital Course Hospital Course: On admission: CC: "I have trouble breathing and my heart is racing" HPI: 66 year old female with past medical history significant for HTN presents with complaints of shortness of breath and palpitations over the course of the past few days. Patient states that she initially presented to the ER here two days earlier for complaints of shortness of breath and chest discomfort. She states that she initially experienced symptoms while away in [place]. She states that she wanted to wait until she was back home to follow up with a doctor. Patient states that they took labs and performed imaging and told her that every thing was okay. She was asked to follow up with her primary medical doctor Dr. Miranda. Patient states that she went to see her primary later on that Sunday whereupon she was further examined. Patient states that she had blood work performed and an EKG performed. She states that there was a problem with the EKG and thus she was told that she would have to go to the emergency room. Patient states that her symptoms resolved that day. She states that she began experiencing symptoms again this morning. She states that she took one baby aspirin earlier today. She admits to palpitations and shortness of breath. Patient states that she feels hort of breath after walking three blocks or climbing up the stairs. She denies chest pain at the moment, nausea, vomiting, diarrhea, dysuria, cough, sick contacts urinary frequency or urgency at this time. Hospital Course- Patient admitted to telemetry with consult placed to [employer], Dr. Talley. CT angio of the chest was performed to rule out pulmonary embolism; the results of which were negative. Echocardiogram performed with findings of left ventricular function moderately to markedly reduced with diffuse hypokinesis. Left ventricular ejection fraction is visually about 30% Mild aortic regurgitation is present. Cardiac cath performed 10/15/17 which showed 95% stenosis of left circumflex arteries as well as 50% stenosis pf RCA. Patient had PCI of left circumflex with drug eluding stent placed at [place]. Imaging results showed mild aneurysmal dilatation of the ascending thoracic aorta. Vasc surgery consulted with recommendations for outpatient follow up. Following cath, new ulcerative ascending aortic aneursym noted with recommendations for cardiothoracic surgery. Patient thus transferred to [facility] for continuing care. Pulmonology consulted for patient's reported shortness of breath. Recommendations for management in light of long history of smoking. Diabetes Mellitus diagnosed as well for which patient was started on management. This is a brief summary of events. For a complete course, refer to the medical record. Discharge instructions as stated in discharge order: The patient has been cleared by Cardiology, Vascular Surgery, and Pulmonology for discharge. A copy of the following instructions will need to be provided to patient upon discharge and gone over with her: 1). Schedule follow up with your Primary Care Physician Dr. Miranda to take place in the next 7 to 10 day. Please bring all of your hospital discharge paperwork with your to your appointment with Dr. Miranda for his review. 2). Schedule follow up with [employer] Dr. Talley to take place in the next 7 days by calling his office at [phone]. You will need to follow up with him for your abnormal heart rhythm (Atrial Fibrillation) and your heart stent placement. 3). Schedule follow up with Vascular Surgeon Dr. Iraheta to take place in the next 7 days by calling his office at [phone]. 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 4). Schedule follow up with Lung Physician Dr. Woodson to take place in the next 7 days by calling his office at [phone]. You will need to have your lung volumes measured. 5). The following prescriptions will need to be filled at your [facility] on your way home from the hospital. Please use them as directed: Eliquis 2.5 mg, 1 tablet by mouth 2 times a day (8AM and 8PM), Dispense #60, NO refills Advair 250/50 mcg, 1 puff inhalation by mouth 2 times a day (8AM and 8 PM), Dispense #1, NO refills Albuterol 90 mcg/actuation, 1 puff inhalation by mouth every 6 hours ONLY NEEDED for severe shortness of breath/wheezing Plavix 75 mg, 1 tablet by mouth 1 time a day (2 PM), Dispense #30, NO refills Vitamin D 50,000 Units, 1 tablet by mouth once a week on for 8 weeks, Dispense #8, NO refills Lasix 20 mg, 1 tablet by mouth 1 time a day (2 PM), Dispense #30, NO refills Lisinopril 5 mg, 1 tablet by mouth 1 time a day (2 PM), Dispense #30, NO refills Metoprolol Tartrate 50 mg, 1 tablet by mouth 2 times a day (8 AM and 8 PM), Dispense #60, NO refills Crestor 20 mg, 1 tablet by mouth 1 time a day (8 PM), Dispense #30, NO refills Metformin 500 mg, 1 tablet by mouth 1 time a day with breakfast (8 AM) starting on Sunday10/20/17, Dispense #30, NO refills 6). You must stop smoking. It will kill you. If you continue to smoke the stent that was placed in the artery of your heart has a high chance of closing leading to a heart attack. Call for resources and medication to help you stop. 7). You have Diabetes and that is why you were started on Metformin which you should begin with breakfast on Sunday10/20/17 as explained above. Please make sure to follow up with Dr. Miranda as you will need to be followed by a foot doctor and eye doctor at least once a year. Be careful of your sugar intake. 8). You have been placed on a blood thinner called Eliquis to help prevent the formation of blood clots because of your abnormal heart rhythm. You must be careful when performing activities and preventing falls as this medication has a high risk of bleeding when there is an injury. If you notice any abnormal bruising please make sure to contact Dr. Miranda's office. 9). Please take care and be well. Discharge Exam - Head Exam Head Exam: ATRAUMATIC, NORMOCEPHALIC - Eye Exam Eye Exam: EOMI, Normal appearance, PERRL Pupil Exam: NORMAL ACCOMODATION - ENT Exam ENT Exam: Mucous Membranes Moist - Neck Exam Neck exam: Full Rom Additional comments: No cervical,supraclavicular or submandibular lymphadenopathy appreciated - Respiratory Exam Respiratory Exam: NORMAL BREATHING PATTERN. absent: Rales, Rhonchi, Wheezes - Cardiovascular Exam Cardiovascular Exam: +S1, +S2, Systolic Murmur - GI/Abdominal Exam GI & Abdominal Exam: Soft. absent: Guarding, Rebound, Tenderness - Extremities Exam Extremities exam: full ROM - Back Exam Back exam: FULL ROM - Neurological Exam Neurological exam: Alert, CN II-XII Intact - Psychiatric Exam Psychiatric exam: Normal Affect, Normal Mood - Skin Skin Exam: Normal Color, Warm Discharge Plan - Discharge Medications Prescriptions: Albuterol HFA [Ventolin HFA 90 mcg/actuation (8 g)] 1 puff IH Q6H #1 inhaler Apixaban [Eliquis] 2.5 mg PO Q12H #60 tab Clopidogrel [Plavix] 75 mg PO DAILY #30 tab Ergocalciferol [Drisdol 50,000 Intl Units Cap] 1 cap PO Q7D #8 cap Fluticasone/Salmeterol [Advair 250-50 Diskus] 1 each IH BID #1 blst.w.dev Furosemide [Lasix] 20 mg PO DAILY #30 tablet Lisinopril [Zestril] 5 mg PO DAILY #30 tab metFORMIN [glucOPHAGE] 500 mg PO DAILY #30 tab Metoprolol Tartrate [Lopressor] 50 mg PO BID #60 tab Rosuvastatin Calcium [Crestor] 20 mg PO HS #30 tab - Follow Up Plan Condition: FAIR Disposition: Trans to Other Acute Care Hosp Instructions: Atrial Fibrillation, Heart Healthy Diet, Diabetes Exchange Diet, Thoracic Aortic Aneurysm, Heart Failure, Adult (DC), Carbohydrate Counting Diet , Heart Attack (DC), Shortness of Breath (Dyspnea) (DC), Diabetes Diet Additional Instructions: The patient has been cleared by Cardiology, Vascular Surgery, and Pulmonology for discharge. A copy of the following instructions will need to be provided to patient upon discharge and gone over with her: 1). Schedule follow up with your Primary Care Physician Dr. Miranda to take place in the next 7 to 10 day. Please bring all of your hospital discharge paperwork with your to your appointment with Dr. Miranda for his review. 2). Schedule follow up with [employer] Dr. Talley to take place in the next 7 days by calling his office at [phone]. You will need to follow up with him for your abnormal heart rhythm (Atrial Fibrillation) and your heart stent placement. 3). Schedule follow up with Vascular Surgeon Dr. Iraheta to take place in the next 7 days by calling his office at [phone]. 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 4). Schedule follow up with Lung Physician Dr. Woodson to take place in the next 7 days by calling his office at [phone]. You will need to have your lung volumes measured. 5). The following prescriptions will need to be filled at your [facility] on your way home from the hospital. Please use them as directed: Eliquis 2.5 mg, 1 tablet by mouth 2 times a day (8AM and 8PM), Dispense #60, NO refills Advair 250/50 mcg, 1 puff inhalation by mouth 2 times a day (8AM and 8 PM), Dispense #1, NO refills Albuterol 90 mcg/actuation, 1 puff inhalation by mouth every 6 hours ONLY NEEDED for severe shortness of breath/wheezing Plavix 75 mg, 1 tablet by mouth 1 time a day (2 PM), Dispense #30, NO refills Vitamin D 50,000 Units, 1 tablet by mouth once a week on for 8 weeks, Dispense #8, NO refills Lasix 20 mg, 1 tablet by mouth 1 time a day (2 PM), Dispense #30, NO refills Lisinopril 5 mg, 1 tablet by mouth 1 time a day (2 PM), Dispense #30, NO refills Metoprolol Tartrate 50 mg, 1 tablet by mouth 2 times a day (8 AM and 8 PM), Dispense #60, NO refills Crestor 20 mg, 1 tablet by mouth 1 time a day (8 PM), Dispense #30, NO refills Metformin 500 mg, 1 tablet by mouth 1 time a day with breakfast (8 AM) starting on Sunday10/20/17, Dispense #30, NO refills 6). You must stop smoking. It will kill you. If you continue to smoke the stent that was placed in the artery of your heart has a high chance of closing leading to a heart attack. Call for resources and medication to help you stop. 7). You have Diabetes and that is why you were started on Metformin which you should begin with breakfast on Sunday10/20/17 as explained above. Please make sure to follow up with Dr. Miranda as you will need to be followed by a foot doctor and eye doctor at least once a year. Be careful of your sugar intake. 8). You have been placed on a blood thinner called Eliquis to help prevent the formation of blood clots because of your abnormal heart rhythm. You must be careful when performing activities and preventing falls as this medication has a high risk of bleeding when there is an injury. If you notice any abnormal bruising please make sure to contact Dr. Miranda's office. 9). Please take care and be well. Ken Dominguez D.O. Referrals: Hosea Woodson MD [Staff Provider] - Scooby Talley MD [Staff Provider] - Hammad Iraheta Jr., MD [Staff Provider] - Clinical Quality Measures - CQM - Heart Failure Ejection Fraction: Less Than 40 % ROE Inhibitor Prescribed: Yes Beta-Chey Prescribed: Metoprolol Succinate (Lopressor ordered) Angiotensin II Receptor Chey Prescribed: No Contraindication/Reason for not providing: ROE inhib ordered AnticoagulationTherapy for Atrial Fibrillation/Atrialflutter: No Contraindication/Reason for not providing: not indicated Aldosterone Antagonist Prescribed: No Contraindication/Reason for not providing: not indicated Hydralazine Nitrate Prescribed: No Contraindication/Reason for not providing: not indicated Implantable Cardioverter Defibrillator Therapy: No Contraindication/Reason for not providing: patient refusal Cardiac Resynchronization Therapy Prescribed: No Contraindication/Reason for not providing: not indicated
--- NOTE | 2017-10-20 21:04 | CARDCATH ---
Copied To: Scooby Talley MD Attending MD: Scooby Talley MD PROCEDURE DATE: 10/15/2017 PROCEDURES: 1. Coronary angiogram. 2. Abdominal root aortic angiogram. 3. Ascending aortic angiogram. CLINICAL INDICATIONS: 1. Chest pain with non-ST elevation myocardial infarction. 2. Coronary artery disease. 3. Hypertension. 4. Hyperlipidemia. 5. Acute systolic congestive heart failure with an ejection fraction of 30%. 6. Thoracic aortic aneurysm. 7. Abdominal aortic aneurysm. 8. Atrial fibrillation. REFERRING PHYSICIANS: 1. Abdirizak Miranda MD 2. Ken Dominguez DO PERFORMING PHYSICIAN: Scooby Talley MD BRIEF CLINICAL HISTORY: Abby Sommer is a 66-year-old female with history of chronic tobacco smoking, hypertension, and hyperlipidemia, admitted to [facility] with non-ST elevation myocardial infarction. Patient originally presented with dyspnea, chest pain, and palpitation. Subsequent workup has revealed patient has acute systolic heart failure with ejection fraction of 30%, abdominal and thoracic aortic aneurysms, and also patient was in atrial fibrillation. Due to non-ST elevation myocardial infarction and aortic root aneurysm, abdominal aortic aneurysm, patient was brought to the quality [facility] to assess coronaries and aorta. DESCRIPTION OF PROCEDURE: After informed consent, patient was prepped and draped in the usual sterile fashion. 2% lidocaine was given in the right groin for local anesthesia. Using micropuncture technique, a 6-Uzbek sheath was introduced into right common femoral artery. A JL4 diagnostic catheter was engaged into left main coronary artery. Contrast injected and left coronary angiogram was done. Then, the catheter was exchanged into JR4 6-Uzbek catheter. The JR4 6-Uzbek catheter engaged into right coronary artery. Contrast injected and right coronary artery angiogram was done. Then, pigtail catheter was inserted into ascending aorta. Using a power injector, ascending aortic root angiogram was done. Then, the catheter was pulled back into abdominal aorta. Contrast injected and abdominal aortic angiogram was done. Patient tolerated the procedure well. Postprocedure, Mynx closure device deployed in the right groin with excellent hemostasis. Radiological supervision and radiological interpretations of the coronary and aortic imaging was done. FINDINGS: 1. Left main coronary artery is patent. 2. Left anterior descending coronary artery is ectatic. Mid LAD has 50% nonobstructive stenosis. Diagonal branches are patent. 3. Left circumflex is also ectatic artery. Distal left circumflex coronary artery has 90% to 95% concentric stenosis. 4. Right coronary artery is ectatic. Mid right coronary artery has a 50% stenosis. 5. LV ejection fraction by echo is 30%. 6. Ascending root aortogram has confirmed a dilated ascending aortic root which is consistent with ascending aorta aneurysm. Abdominal aortic angiogram confirmed large abdominal aortic aneurysm. Patient will be brought back for further observation. We will consider intervening critical left circumflex coronary artery as the patient had a non-ST elevation myocardial infarction. Scooby Talley MD
--- NOTE | 2017-10-21 00:31 | CP.PCM.PN ---
Subjective - Date & Time of Evaluation Date of Evaluation: 10/20/17 Time of Evaluation: 13:35 - Subjective Subjective: Patient seen and evaluated denies chest pain and dyspnea at bedside D/W the patient about the need for the CT surgery for the ascending Aortic aneurysm Patient to be transferred to [facility] today D/W Dr. Orozco [facility] surgeon at [facility] Objective - Vital Signs/Intake and Output Vital Signs (last 24 hours): Temp Pulse Resp BP Pulse Ox 98.2 F 93 H 20 143/85 95 10/20/17 15:10 10/20/17 16:00 10/20/17 15:10 10/20/17 15:10 10/20/17 15:10 Intake and Output: 10/20/17 10/21/17 18:59 06:59 Intake Total 400 Balance 400 - Labs Labs: 10/20/17 07:09 10/20/17 07:09 PT 13.8 SECONDS (9.7-12.2) H 10/15/17 06:10 INR 1.3 10/15/17 06:10 APTT 34 SECONDS (21-34) D 10/17/17 17:21
--- NOTE | 2017-10-22 10:47 | CT ---
Date of service: 10/20/2017 PROCEDURE: CT Chest with contrast HISTORY: TAA sizing COMPARISON: CTA chest 10/18/2017 TECHNIQUE: Contiguous axial images were obtained through the chest with intravenous contrast enhancement. Sagittal and coronal reconstructions were performed. IV contrast: 100 milliliters Visipaque 320 Radiation dose (DLP):725.20 MGy-cm. This CT exam was performed using one or more of the following dose reduction techniques: Automated exposure control, adjustment of the mA and/or kV according to patient size, and/or use of iterative reconstruction technique. FINDINGS: LUNGS: Clear lungs. Visualized airway clear. 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 The aorta measures 6 centimeters at this level (previously 5.8 cm). The ulcerative aneurysm measures 2.9 centimeters. The aneurysm measured 2.7 centimeters previously. Descending thoracic aorta is unremarkable. Normal sized heart. Main pulmonary artery unremarkable. No vascular congestion. No lymphadenopathy. PLEURA: No pleural fluid. No pneumothorax. BONES: No fracture. No destructive lesion. UPPER ABDOMEN: Grossly unremarkable. 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 The aorta measures 6 centimeters at this level (the aorta measures 5.8 centimeters). The ulcerative aneurysm measures 2.9 centimeters (measures 2.7 centimeters previously)
== END 2017-10-20 17:48 | disposition home or self-care (01) | DRG 280 ==
LOC: C.ER 11:00 → C.9E 12:25 → C.6T 14:07
PROVIDERS: ADMIT Family Medicine; ATTEND Family Medicine
PROC: 4A023N7 Measurement of Cardiac Sampling and Pressure, Left Heart, Percutaneous Approach (ICD-10-PCS; principal; 2017-10-15)
PROC: B211YZZ Fluoroscopy of Multiple Coronary Arteries using Other Contrast (ICD-10-PCS; 2017-10-15)
PROC: B215YZZ Fluoroscopy of Left Heart using Other Contrast (ICD-10-PCS; 2017-10-15)
PROC: B410YZZ Fluoroscopy of Abdominal Aorta using Other Contrast (ICD-10-PCS; 2017-10-15)
PROC: B310YZZ Fluoroscopy of Thoracic Aorta using Other Contrast (ICD-10-PCS; 2017-10-15)
DX: I48.0 Paroxysmal atrial fibrillation (principal); I21.4 Non-ST elevation (NSTEMI) myocardial infarction; I50.21 Acute systolic (congestive) heart failure; J44.1 Chronic obstructive pulmonary disease with (acute) exacerbation; E11.9 Type 2 diabetes mellitus without complications; E78.5 Hyperlipidemia, unspecified; I11.0 Hypertensive heart disease with heart failure; I25.10 Atherosclerotic heart disease of native coronary artery without angina pectoris; I71.2 Thoracic aortic aneurysm, without rupture; R79.1 Abnormal coagulation profile; Z79.4 Long term (current) use of insulin; F17.210 Nicotine dependence, cigarettes, uncomplicated; I71.4 Abdominal aortic aneurysm, without rupture; I48.91 Unspecified atrial fibrillation